=== PATIENT | male | born 1985 | race Caucasian/White ===

== ENCOUNTER 2019-01-31 15:39 | Outpatient (REF) | payer MEDICAID, SELFPAY ==
[2019-01-31 21:31] LABS: Anion Gap 5.9 mmol/L (3-11); BUN 11 mg/dL (7-18); CO2 33.1 mmol/L (21.0-32.0); CREATININE 0.88 mg/dL (0.70-1.30); Calcium 9.2 mg/dL (8.5-10.1); Calculated LDL 112; Chloride 103 mmol/L (98-107); Cholesterol 167 mg/dL (50-200); Glucose 88 mg/dL (70-100); HDL Cholesterol 42 mg/dL (40-60); Potassium 4.9 mmol/L (3.5-5.1); Sodium 142 mmol/L (136-145); Triglyceride 66 mg/dL (30-150)
[2019-02-02 11:11] LABS: HIV-1/2 Ag & Ab Screen Negative (NEGAT)
[2019-02-02 12:28] LABS: Syphilis Serology (RPR) Negative (Negative)
[2019-02-02 14:19] LABS: Chlamydia Result Negative; GC Result Negative; Specimen Description URINE
== END 2019-01-31 15:59 ==
LOC: NCHCN 15:39
PROVIDERS: Visit Provider Specialist/Technologist Athletic Trainer
DX: Z11.3 Encounter for screening for infections with a predominantly sexual mode of transmission (principal); Z11.4 Encounter for screening for human immunodeficiency virus [HIV]; Z13.220 Encounter for screening for lipoid disorders
CPT/HCPCS: 80048; 80061; 83721; 87389; 87491; 87591; 86592

== ENCOUNTER 2019-11-03 21:33 | Emergency (ER) | payer MEDICAID, SELFPAY ==
[2019-11-03 21:38] VITALS: BP 130/75; PULSE 87; RESP 16; TEMP 36.6; O2SAT 96
--- NOTE | 2019-11-03 22:08 | DI.RAD_ITS ---
EXAM: XR HAND LT COMPLETE CLINICAL HISTORY: injury last week. TECHNIQUE: 2D digital imaging was performed. COMPARISON: No exams were available for comparison FINDINGS: BONES: No acute fracture is present. No bony destructive lesion is seen. JOINTS: No dislocation present. SOFT TISSUE: Normal. Tiny 1 mm calcific density adjacent to the tip of the distal phalanx of the left ring finger. This likely reflects on the old injury or degenerative change. IMPRESSION: No acute fracture or dislocation of the left hand. DATA REPOSITORY: RADIATION DOSE DELIVERED:
--- NOTE | 2019-11-03 22:41 | DI.VRAD_ITS ---
PROCEDURE INFORMATION: Exam: XR Left Hand Exam date and time: 11/03/2019 10:27 PM Age: 34 years old Clinical indication: Other: Injury last week TECHNIQUE: Imaging protocol: XR Left hand. Views: 3 or more views. COMPARISON: No relevant prior studies available. FINDINGS: Bones/joints: No fractures. Distal radioulnar alignment is normal. No blastic or lytic lesions. No periostitis or osteolysis. No articular erosive changes. 1 mm rounded calcific focus at the tip of the 4th finger likely representing an incidental chronic degenerative or posttraumatic/postinflammatory calcification. Soft tissues: No radiopaque foreign bodies. Other findings: Carpal relationships are normal. IMPRESSION: No acute findings. Dictated and Authenticated by: Isaac Arias MD. Ordering:GABI Mcdaniels MD
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
== END 2019-11-03 23:25 | disposition home or self-care (01) ==
LOC: ER 23:34
PROVIDERS: Emergency Provider Physician Assistant
DX: M79.642 Pain in left hand (principal); X50.9XXA Other and unspecified overexertion or strenuous movements or postures, initial encounter; R07.9 Chest pain, unspecified; R10.9 Unspecified abdominal pain
CPT/HCPCS: 93005; 99284; 73130; 93010

== ENCOUNTER 2020-10-04 15:40 | Outpatient (REF) | payer MEDICAID, SELFPAY ==
[2020-10-08 11:52] LABS: HSV Type 1 Ab, IgG Positive (Negative); HSV Type 2 Ab, IgG Negative (Negative)
== END 2020-10-04 15:41 | disposition home or self-care (01) ==
LOC: NCHCN 15:40
PROVIDERS: Visit Provider Nurse Practitioner Family
DX: R21 Rash and other nonspecific skin eruption (principal)
CPT/HCPCS: 86695; 86696

== ENCOUNTER 2021-04-30 14:45 | Emergency (ER) | payer SELFPAY | END 2021-04-30 15:55 | DX: Z53.21 Procedure and treatment not carried out due to patient leaving prior to being seen by health care provider (principal) ==

== ENCOUNTER 2021-04-30 15:11 | Emergency (ER) | payer MEDICAID, SELFPAY ==
--- NOTE | 2021-04-30 15:15 | DI.RAD_ITS ---
Exam(s) XR HAND LT LIMITED EXAM: XR HAND LT LIMITED CLINICAL HISTORY: Left knuckle laceration, R/O Fx FB. TECHNIQUE: 2D digital imaging was performed. COMPARISON: CR,XR XR HAND LT COMPLETE from 11/03/2019 FINDINGS: BONES: No acute fracture is present. No bony destructive lesion is seen. JOINTS: No dislocation present. SOFT TISSUE: Gauze overlies the 2nd and 3rd metacarpophalangeal regions. No foreign body is seen. IMPRESSION: Unremarkable radiographs of the left hand. DATA REPOSITORY: RADIATION DOSE DELIVERED:
[2021-04-30 15:17] VITALS: BP 112/78; PULSE 114; RESP 18; TEMP 37.2; O2SAT 97
--- NOTE | 2021-04-30 15:19 | ED.GENADUL_ITS ---
Discharge Plan Disposition Patient Disposition: HOME Condition: Stable Discharge Details Clinical Impression: Laceration of hand Primary Care Provider: Helene Wilson ED Provider: Arslan Rios Home Meds and New Rx's Prescriptions: New ibuprofen 800 mg tablet 800 mg PO TID PRNQty: 14 RF: 0 No Action No Known Home Meds RF: 0 Discharge Instructions Instructions: Care For Your Stitches (ED), Laceration (ED) Additional Instructions: Rest, elevate, cool compresses as tolerated. Change antibiotic dressing daily and wear splint to avoid excessive range of motion so that you do not care open your sutures. Ibuprofen as directed. Sutures removed in approximately 10-14 days. Please watch for new or worsening symptoms and return to the ER for any concerns. Discharge Data Discharge Date/Time-TO BE ENTERED AT DEPARTURE: 04/30/21 16:40 Medical Decision Making <Martha Dominguez - Last Filed: 05/01/21 10:23> 35-year-old male presents the ER chief complaint of left knuckle laceration. Patient has a roughly 2 cm laceration noted to the dorsal aspect of his MCP joint at the index finger. Patient has FROM to digit. This occurred approximately 4.5 hours ago. Patient was trimming some [place] trees with a large sharp machete type knife and accidentally cut his left hand. 1544: Laceration anesthetized with 1% lidocaine without patient tolerated well. Care is to be handed off to oncoming provider for statement PA pending x-ray and laceration repair. Discussed patient case with him he verbalized understanding. <PAULETTE Colmenares - Last Filed: 04/30/21 16:36> I assumed care of this 35-year-old male from my colleague ÓSCAR Dominguez, please see her initial HPI and examination. In short, patient sustained a laceration, pending x-ray and repair. I evaluated the patient personally. 2.5 cm laceration over the left second MCP joint. Bleeding controlled. 5 out of 5 strength. neuro, vascular, tendon intact. X-ray unremarkable Laceration repaired without difficulty. Laceration and had a antibiotic dressing applied and AlumaFoam finger splint. No additional questions or concerns. Standard discharge and return precautions provided This documentation was generated using MapHazardlyation system, please disregard any oddities of phrase or misspellings. Medical Records Medical records reviewed: Yes I reviewed the patient's medical records. Imaging Data Radiologic Study: Attestation: I personally reviewed and interpreted this imaging study as follows: Imaging: X-Ray Radiologist's impression: Exam(s) XR HAND LT LIMITED EXAM: XR HAND LT LIMITED CLINICAL HISTORY: Left knuckle laceration, R/O Fx FB. TECHNIQUE: 2D digital imaging was performed. COMPARISON: CR,XR XR HAND LT COMPLETE from 11/03/2019 FINDINGS: BONES: No acute fracture is present. No bony destructive lesion is seen. JOINTS: No dislocation present. SOFT TISSUE: Gauze overlies the 2nd and 3rd metacarpophalangeal regions. No foreign body is seen. IMPRESSION: Unremarkable radiographs of the left hand. HPI <Martha Dominguez - Last Filed: 05/01/21 10:23> General Mode of arrival: ambulatory . Date/Time Provider Initiated Documentation: 04/30/21 15:13 . Limitations to Documentation: no limitations . Information obtained by: patient and RN notes reviewed . HPI Narrative: 35-year-old male presents the ER chief complaint of left knuckle laceration. Patient has a roughly 2 cm laceration noted to the dorsal aspect of his MCP joint at the index finger. Patient has FROM to digit. This occurred approximately 4.5 hours ago. Patient was trimming some [place] trees with a large sharp machete type knife and accidentally cut his left hand. Related Data Home Medications Medication Instructions Recorded Confirmed Unknown [No Known Home Meds] 05/09/16 05/09/16 ibuprofen 800 mg PO TID PRN #14 tab 04/30/21 Previous Rx's Medication Instructions Recorded ibuprofen 800 mg PO TID PRN #14 tab 04/30/21 Allergies Allergy/AdvReac Type Severity Reaction Status Date / Time No Known Allergies Allergy Unverified 05/09/16 07:58 General AMMON: 3 Review of Systems <Martha Dominguez - Last Filed: 05/01/21 10:23> All systems reviewed & are unremarkable except as noted in HPI and below Integumentary/Breasts Skin/Breast: Reports wounds (2 cm laceration to dorsum left index finger) PFSH <Martha Dominguez - Last Filed: 05/01/21 10:23> Social History Smoking/Tobacco Use Status: Current every day Smoking risk assessment performed?: Yes Alcohol Intake: current Alcohol Intake frequency: 0-2 drinks per day Drug use: Occasionally Substance use type: marijuana Do you feel safe at home: Yes Do you feel safe in your relationship?: Yes Exam <Martha Dominguez - Last Filed: 05/01/21 10:23> Extrem Left upper extremity: hand Details: laceration (Over MCP joint) 2nd digit dorsal aspect central Details: linear and with motor nerve function intact <PAULETTE Colmenares - Last Filed: 04/30/21 16:36> Laceration Laceration 1: Site: hand Side (If applicable): left Size (cm): 2.5 Description: linear and clean Depth: simple, single layer Local Anesthetic: Lidocaine 1%, Bupivicaine 0.5% and other anesthetic ([id number] mixture) Amount of anesthesia used (mL): 5 Pre-repair: wound explored, irrigated extensively and deep structures intact Skin layer closed with: nylon Size (cm): 4-0 Number of sutures: 5 Technique: simple, interrupted Sign Out <Martha Dominguez - Last Filed: 05/01/21 10:23> Sign Out Data: Sign Out Comment: Pending XRay results and suture repair Last updated by Martha Dominguez at 04/30/21 15:58
== END 2021-04-30 16:40 | disposition home or self-care (01) ==
PROVIDERS: Emergency Provider Physician Assistant
DX: S61.211A Laceration without foreign body of left index finger without damage to nail, initial encounter (principal); W26.0XXA Contact with knife, initial encounter
CPT/HCPCS: 12001; 90471; 99284; 73120; 99283

== ENCOUNTER 2022-08-19 11:26 | Emergency (ER) | payer MEDICAID, SELFPAY ==
[2022-08-19 11:32] VITALS: BP 130/75; PULSE 117; RESP 18; TEMP 36.9; O2SAT 97
--- NOTE | 2022-08-19 11:45 | DI.RAD_ITS ---
Exam(s) XR LUMBAR SPINE COMPLETE EXAM: XR LUMBAR SPINE COMPLETE CLINICAL HISTORY: Lower back pain. TECHNIQUE: 2D digital imaging was performed. COMPARISON: No exams were available for comparison FINDINGS: Five views: There is slight indentation of superior endplate L4 seen on the lateral view of questionable. All th e disc spaces exhibit normal height. No listhesis. No pars defects. There is no facet arthropathy evident. Visualized sacroiliac joints appear unremarkable. No osseous lesions. IMPRESSION: Mild findings as above. If clinically indicated follow-up MRI can be performed DATA REPOSITORY: RADIATION DOSE DELIVERED:
--- NOTE | 2022-08-19 11:50 | W.ED.GENAD ---
Discharge Plan Disposition Patient Disposition: Home Condition: Stable Discharge Details Clinical Impression: Lumbago Primary Care Provider: Helene Wilson ED Provider: Martha Dominguez Home Meds and New Rx's Prescriptions: New cyclobenzaprine 10 mg tablet 10 mg PO TID PRN (Reason: muscle spasm) Qty: 7 0RF Rx Instructions: Take 1 tablet up to 3 times daily as needed for muscle spasm. No Action ibuprofen 800 mg tablet 800 mg PO TID PRNQty: 14 0RF Discharge Instructions Instructions: Low Back Strain (ED) Additional Instructions: Alternate ice and heat you may use IcyHot or similar [id number]-hqorytc. Try massage. Discuss with your PCP if continued pain after 1 to 2 weeks for possible further imaging if needed. Follow up with primary care provider in 7-10 days. Return to ED/ urgent care sooner if any worsening numbness tingling, loss of bowel or bladder control, radiation of pain or concerns. Increase oral fluids. Please take Tylenol or Ibuprofen with food every 4-6 hours as needed for pain and swelling. Take the muscle relaxer as prescribed. Stand Alone Forms: Work Release Referrals: Helene Wilson MD [Primary Care Provider] - 1 week Discharge Data Discharge Date/Time-TO BE ENTERED AT DEPARTURE: 08/19/22 13:45 Medical Decision Making 37-year-old male presents to the ER accompanied by his family with chief complaint of right lumbar back pain which worsened approximately 3 to 4 days ago. He reports intermittent spasms, denies any radiation into his legs no problems urinating no loss of bowel or bladder control denies any saddle anesthesia. 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 L-spine x-ray ordered, IM Toradol and Norflex. X-ray result as noted below, patient has no radiculopathy, no saddle anesthesia no indications for MRI at this time. I will discuss follow-up with PCP and further eval. This text was generated using [email or web address] system, please disregard any oddities of phrase or misspellings. Imaging Data Radiologic Study: Imaging: X-Ray Radiologist's impression: EXAM: XR LUMBAR SPINE COMPLETE CLINICAL HISTORY: Lower back pain. TECHNIQUE: 2D digital imaging was performed. COMPARISON: No exams were available for comparison FINDINGS: Five views: There is slight indentation of superior endplate L4 seen on the lateral view of questionable. All the disc spaces exhibit normal height. No listhesis. No pars defects. There is no facet arthropathy evident. Visualized sacroiliac joints appear unremarkable. No osseous lesions. IMPRESSION: Mild findings as above. If clinically indicated follow-up MRI can be performed HPI General Mode of arrival: ambulatory. Date/Time Provider Initiated Documentation: 08/19/22 11:34. Limitations to Documentation: no limitations. Information obtained by: patient, family, RN notes reviewed and old records reviewed. HPI Narrative: 37-year-old male presents to the ER accompanied by his family with chief complaint of right lumbar back pain which worsened approximately 3 to 4 days ago. He reports intermittent spasms, denies any radiation into his legs no problems urinating no loss of bowel or bladder control denies any saddle anesthesia. 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 He denies any recent falls or significant trauma. He has been taking ibuprofen with little to no relief at home. He did not take any ibuprofen this morning. Related Data Home Medications Medication Instructions Recorded Confirmed ibuprofen 800 mg tablet 800 mg PO TID PRN #14 tabs 04/30/21 08/19/22 cyclobenzaprine 10 mg tablet 10 mg PO TID PRN muscle spasm #7 08/19/22 tabs Previous Rx's Medication Instructions Recorded ibuprofen 800 mg tablet 800 mg PO TID PRN #14 tabs 04/30/21 cyclobenzaprine 10 mg tablet 10 mg PO TID PRN muscle spasm #7 08/19/22 tabs Allergies Allergy/AdvReac Type Severity Reaction Status Date / Time No Known Allergies Allergy Unverified 08/19/22 11:49 General Stated Complaint: Nk/Back Pain AMMON: 4 Review of Systems All systems reviewed & are unremarkable except as noted in HPI and below Constitutional Constitutional: Denies weakness ENT Ears, Nose, Mouth, and Throat: Denies dizziness Musculoskeletal Musculoskeletal: Reports as per HPI, Denies abnormal gait, Reports back pain, Denies deformity, Denies muscle weakness, Denies numbness, Reports stiffness and Denies tingling Neurologic Neurologic: Denies abnormal gait, Denies dizziness, Denies localized weakness, Denies numbness, Denies tingling and Denies weakness PFSH All Active Problems (Updated 08/19/22 @ 13:35 by Martha Dominguez NP) Laceration of hand (Acute) Lumbago (Acute) Social History Smoking/Tobacco Use Status: Current every day Smoking risk assessment performed?: Yes Alcohol Intake: current Alcohol Intake frequency: 0-2 drinks per day Drug use: Occasionally Substance use type: marijuana Do you feel safe at home: Yes Do you feel safe in your relationship?: Yes Exam Narrative Exam Narrative: Constitutional: Alert and oriented x3. Appears stated age. Normal body habitus. Head: Normocephalic, no trauma. Eyes: Pupils PERRL, Red reflex noted, EOM's intact. Eyelids symmetrical without lesions, discharge, or swelling. Chest: RRR, Normal S1, S2, distal pulses intact. Resp: Lungs clear to auscultation bilaterally, no wheezes, rales, or rhonchi. Abdomen: Soft, non-distended, Normoactive bowel sounds all 4 quads. Musculoskeletal: Normal gait, 5/5 strength to all four extremities. Skin: No suspicious rashes or lesions. Capillary refill less than 2 sec. Neurologic: Cranial nerves II-XII intact. Alert and oriented x 3. Motor: No deficits noted. Sensory: Intact bilaterally all 4 extremities. Reflexes: DTR's intact bilaterally.. Hematologic/Lymphatic: No ecchymosis, no lymphadenopathy. Course Vital Signs Vital signs: Vital Signs Temperature 36.9 C 08/19/22 11:32 Pulse 117 H 08/19/22 11:32 Respiratory Rate 18 08/19/22 11:32 Blood Pressure 130/75 08/19/22 11:32 Pulse Oximetry 97 08/19/22 11:32 Temperature 36.9 C 08/19/22 11:32 Temperature Source Temporal Artery Scan 08/19/22 11:32 Pulse 117 H 08/19/22 11:32 Respiratory Rate 18 08/19/22 11:32 Respiratory Effort 08/19/22 11:48 Blood Pressure 130/75 08/19/22 11:32 Blood Pressure Position Sitting 08/19/22 11:32 Pulse Oximetry 97 08/19/22 11:32 Oxygen Delivery Method Room Air 08/19/22 11:32 Oxygen Flow Rate 0 08/19/22 11:32 Pain Level 9 08/19/22 11:32 PAWSS Have you Been Recently Intoxicated or Drunk Within the Last 30 days?: Yes Have you Ever Experienced Previous Episodes of Alcohol Withdrawal?: No Have you ever Experienced Withdrawal Seizures?: No Have you ever Experienced Delirium Tremens(DT)s?: No Have you ever undergone Alcohol Rehabilitation Treatment (i.e, inpt ot outpatient treatment programs)?: No Have you ever Experienced Blackouts?: No Have you ever Combined Alcohol with other Downers within the last 90 days?: No Have you ever Combined Alcohol with any other Substance of Abuse during the last 90 days?: No Positive Blood Alcohol level on Presentation? [PCS.BAL]: No Evidence of Increased Autonomic Activity (i.e. HR>120, tremor, sweating, agitation, nausea)?: No Result: 1
[2022-08-19] MEDS: Ketorolac 30 MG/ML VIAL IM (12:00)
[2022-08-19] MEDS: Orphenadrine 60 MG/2 ML VIAL IM (12:00)
[2022-08-19] MEDS: Cyclobenzaprine 10 MG TAB, 3 TABS/BTL PO (13:43)
== END 2022-08-19 13:45 | disposition home or self-care (01) ==
PROVIDERS: Emergency Provider Registered Nurse Emergency
DX: M54.50 Low back pain, unspecified (principal)
CPT/HCPCS: 96372; 99284; J2360; 72110; 99283; J1885

== ENCOUNTER 2024-03-06 15:31 | Emergency (ER) | payer MEDICAID, SELFPAY ==
[2024-03-06 15:33] VITALS: BP 121/89; PULSE 119; RESP 16; TEMP 36.8; O2SAT 98
[2024-03-06] MEDS: Lidocaine/Epinephri/Tetracaine Topical Gel 3 ML (15:44)
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
--- NOTE | 2024-03-06 16:44 | NUR.NOTE ---
Referral faxed to [facility] Primary Care Provider Lizette Greco for suture Removal in 10-14 days.
[2024-03-06 16:51] VITALS: PULSE 92; O2SAT 98
[2024-03-06] MEDS: Bacitracin 1 PACKET TP (16:57)
--- OUTSIDE RECORDS SUMMARY | 2024-03-06 16:59 | XMS_ITS | Encounter Summary ---
Author Organization [facility] Address [facility] [place] [address] Care Team Providers Care It Systems Engineer Name Role Phone Lizette Greco LINUS Primary Care Provider [phone] Reason for Visit * Reason Comments Follow-up NXR ll DOS 08/04/19 [place] RIGHT ANKLE Encounter Details Date Type Department Care Team (Late st Contact Info) Description 08/26/2019 1:00 PM EST Office Visit Orthopaedics at [facility] [place] [address] Sara Nunez MD [facility] [place] [address] S/P hardware removal Social History Tobacco Use Types Packs/Day Years Used Date Smoking Tobacco: Every Day Cigarettes Smokeless Tobacco: Never Alcohol Use Standard Drinks/Week Comments Yes 0 (1 standard drink = 0.6 oz pur e alcohol) occasional Sex and Gender Information Value Date Recorded Sex Assigned at Not on file Gender Identity Not on file Sexual Orientation Not on file documented as of this encounter Last Filed Vital Signs Vital Sign Reading Time Taken Comments Blood Pressure - - Pulse - - Temperature - - Respiratory Rate - - Oxygen Saturation - - Inhaled Oxygen Concentration - - Weight 90.7 kg (200 lb) 08/26/2019 2:14 PM EST Height 182.9 cm (6') 08/26/2019 2:14 PM EST Body Mass Index 27.12 08/26/2019 2:14 PM EST documented in this encounter Progress Notes * Sara Nunez MD - 08/26/2019 1:00 PM EST Chief complaint: Status post removal of hardware right ankle; date of surgery 08/04/2019 History of present illness: Vinay presents today for wound check. He has been on Keflex for a week. He has not removed his dressing. He has been weightbearing as tolerated Physical exam: Patient is in no acute distress. Alert and oriented. Mood and affect are appropriate Focused examination right lower extremity there is decreased when compared to previous exam So-incisional erythema has significantly decreased. Minimal so-incisional tenderness. No evidence of drainage dehiscence He is neurovascular intact with motor and sensation intact in all distributions Impression: - 3 weeks status post removal hardware right ankle Plan: - Sterile dressings were placed in clinic today. Patient may remove dressing in 24 hours and shower. He is to avoid any shoewear that will rub on his incision - He should complete the full 7-day course of Keflex - We will see him back in clinic in 3 weeks for wound check. If he is doing well we will likely transition to as needed visits at that point in time documented in this encounter Plan of Treatment Not on file documented as of this encounter Visit Diagnoses Diagnosis S/P hardware removal documented in this encounter Care Teams It Systems Engineer Relationship Specialty Start Date End Date Lizette Greco APRN [address] [place] [address] PCP - General Family Medicine 03/18/19 documented as of this encounter
--- OUTSIDE RECORDS SUMMARY | 2024-03-06 16:59 | XMS_ITS | Encounter Summary ---
Author Organization [facility] Address [facility] [place] [address] Care Team Providers Care Second Worker Name Role Phone Lizette Greco LINUS Primary Care Provider [phone] Reason for Visit * Reason Comments Follow-up NXR-S/P HARDWARE REM [place] RIGHT ANKLE Encounter Details Date Type Department Care Team (Late st Contact Info) Description 09/30/2019 4:00 PM EST Office Visit Orthopaedics at [facility] [place] [address] Sara Nunez MD [facility] [place] [address] S/P hardware removal Social History Tobacco Use [...] Sign Reading Time Taken Comments Blood Pressure 123/78 09/30/2019 3:25 PM EST Pulse 89 09/30/2019 3:25 PM EST Temperature - - Respiratory Rate - - Oxygen Saturation - - Inhaled Oxygen Concentration - - Weight 90.7 kg (200 lb) 09/30/2019 3:25 PM EST Height 182.9 cm (6') 09/30/2019 3:25 PM EST Body Mass Index 27.12 09/30/2019 3:25 PM EST documented in this encounter Progress Notes * Sara Nunez MD - 09/30/2019 4:00 PM EST Chief complaint: Status post removal of hardware right ankle; date of surgery 08/04/2019 History of present illness: Vinay presents today for wound check. [facility] He notes sensitivity and redness over the distal fibula and is concerned. Physical exam: Patient is in no acute distress. Alert and oriented. Mood and affect are appropriate Focused examination right lower extremity there is some logan-incisional erythema at the mid pole ofthe wound. There is a small suture abscess, necrotic fluid was expressed. No palpable fluctuance. No evidence of wound dehiscence or drainage On motor exam, there is 5/5 strength dorsiflexion, plantarflexion, inversion, eversion, EHL, FHL Sensation is intact to light touch in the sural, saphenous, deep peroneal, superficial peroneal, and tibial nerve distributions Toes are warm and well perfused with 2+ palpable DP and PT pulses Impression: - Status post removal of K wire from the right ankle; date of surgery 08/04/2019 -Suture abscess Plan: - Sterile dressing was placed over the wound in clinic today. Patient may remove in 48 hours and thereafter cover with a Band-Aid -We have placed him on a two-week course of Bactrim -We will see him back in clinic in 2 weeks for wound check documented in this encounter Plan of Treatment Not on file documented as of this encounter Visit Diagnoses Diagnosis S/P hardware removal documented in this encounter Care Teams Second Worker Relationship Specialty Start Date End Date Lizette Greco APRN [address] [place] [address] PCP - General Family Medicine 03/18/19 documented as of this encounter
--- OUTSIDE RECORDS SUMMARY | 2024-03-06 16:59 | XMS_ITS | Encounter Summary ---
Author Organization [facility] [place] [address] Care Team Providers Care Electronic Scale Subassembler Name Role Phone Angus Lizette LINUS Primary Care Provider [phone] Reason for Visit * Auth/Cert Specialty Diagnoses / Procedures Referred By Contac t Referred To Contact Diagnoses Symptomatic hardware right ankle Procedures PRO REMOVAL DEEP IMPLANT REMOVAL OF IMPLANT, DEEP (WRVU 5.96) Referral ID Status Reason Start Date Expiration Date Visits Re quested Visits Authorized [id number] 1 1 Encounter Details Date Type Department Care Team (Late st Contact Info) Description 08/04/2019 7:30 AM [facility] Anesthesia Event [facility] [place] [address] Rebecca Decker MD [facility] [place] [address] Anesthesia Record Procedure Summary Procedure Name Responsible Anesthesiologist Anesthesia Start Time Anesthesia Stop Time REMOVAL OF IMPLANT, DEEP (WRVU 5.96) (Right: Ankle) Rebecca Decker MD 08/04/19 0730 08/04/19 0842 Events Date Time Event Comment 08/04/2019 0730 Start 0731 0732 AN Verify 0732 An Start Data 0739 Anesthesia Ready 0748 An Induction 0750 An Intubation 0755 Procedure Start 0834 an stop data 0840 Recovery or ICU Handoff Laverne ent care was transferred to the destination unit staff after review of the patient's medical history, current anesthetic/surgical status and plan, according to the Provider Handoff Checklist. 0842 Stop Meds Name Total Midazolam 2 mg fentaNYL 50 mcg IV Lidocaine 60 mg Propofol 300 mg Propofol INF 607.69 mg ceFAZolin (ANCEF) 2g in dextrose 5% 100 mL 2 g Dexmedetomidine 12 mcg Ondansetron 8 mg Dexamethasone 8 mg lactated ringers infusion 600 mL * Agents Name O2 Air N2O Sevoflurane (et) * Blood No blood administrations on file. Lines, Drains, and Airways Type Details Placement Removal (RETIRED) Peripheral IV Line - Single Lumen 08/04/19; 06; metacarpal vein (top of hand), left; [id number] catheter system; 20 gauge, 1/2 in length; 08/04/19; 0948 08/04/19 0638 by Shanta Bass RN 08/04/19 0948 by Adriana Hope RN Supraglottic Mask Ventilation: No t Attempted (0); LMA Type: iGel; LMA Size: 4; Inserted by: Estrellita SHANNON; Removal Date: 08/04/19; Removal Time: 0808/04/19 0750 by Tawanna Beth 08/04/19 0855 by Adriana Hope RN Incision 08/04/19; 0755; ankl e; 04/21/22 (LDA cleanup utility RA#[id number]); 1715 (LDA cleanup utility RA#[id number]) 08/04/19 0755 by Sarah Iraheta RN 04/21/22 1715 by Elissa Heard documented in this encounter Social History Tobacco Use Types Packs/Day Years Used Date Smoking Tobacco: Every Day Cigarettes Smokeless Tobacco: Never Alcohol Use Standard Drinks/Week Comments Yes 0 (1 standard drink = 0.6 oz pur e alcohol) occasional Sex and Gender Information Value Date Recorded Sex Assigned at Not on file Gender Identity Not on file Sexual Orientation Not on file documented as of this encounter OR Notes * Anesthesia Postprocedure Evaluation - Rebecca Decker MD - 08/04/2019 10:01 AM EST Department of Anesthesiology Post-procedure Note Patient: Vinay Dowell Procedure Summary Date: 08/04/19 Room / Location: [facility] OR [address] [place] [address] OSC Anesthesia Start: 729 Anesthesia Stop: 841 Procedure: REMOVAL OF IMPLANT, DEEP (WRVU 5.96) (Right Ankle) Diagnosis: (Symptomatic hardware right ankle) Surgeon: Sara Nunez MD Responsible Provider: Rebecca Decker MD Anesthesia Type: general ASA Status: 2 All Anesthesia Providers: Anesthesiologist: Rebecca Decker MD MASK FORMER: Fredrick Dawson CRNA Student Nurse [employer] Seating Press Operator: Tawanna Beth Vitals Value Taken Time BP 117/78 08/04/2019 8:45 AM Temp Pulse 64 08/04/2019 9:45 AM Resp 20 08/04/2019 9:45 AM SpO2 98 % 08/04/2019 9:45 AM Pain Level 1 08/04/2019 9:45 AM Patient Location: PACU/[facility] Level of Consciousness: Awake and Alert Pain Management: Satisfactory Analgesia PONV: None Cardiovascular Status: At Baseline Respiratory Status: Room Air and Stable Respiratory Status Postoperative Fluid Status: Intravascular EUvolemia Possible Anesthetic Complications: NONE apparent at time of evaluation Final Primary Anesthesia Type: General The Primary Anesthetic Type Changed from the Original (PreOp) Anesthesia Plan: Inadequate Sedation Comments: Mr. Dowell tolerated the procedure well and without complication. VSS on RA. Pt denies any concerns. Pt transitioned from MAC to GA/LMA with the use of an ankle tourniquet. * Anesthesia Preprocedure Evaluation - Rebecca Decker MD - 08/03/2019 12:45 PM EST Pre-Anesthesia Evaluation for: Vinay Dowell a 34 y.o. male. Procedure(s): REMOVAL OF IMPLANT, DEEP (WRVU 5.96) Patient Active Problem List Diagnosis ??? Attention and concentration deficit ??? TBI (traumatic brain injury) ??? Perianal abscess ??? [id number] ??? Ankle pain No past medical history on file. Past Surgical History: Procedure Laterality Date ??? PRO COLONOSCOPY, REMV LESN, SNARE N/A 03/02/2017 COLONOSCOPY, POLYPECTOMY, REMOVAL LESION BY SNARE (WRVU 4.67) performed by Luis E Shultz MD at [facility] ENDOSCOPY Social History Tobacco Use ??? Smoking status: Current Every Day Smoker Packs/day: 0.50 Types: Cigarettes ??? Smokeless tobacco: Never Used Substance Use Topics ??? Alcohol use: Yes Comment: occasional Social History Substance and Sexual Activity Drug Use Yes ??? Types: Marijuana Comment: 3-4 times a month No Known Allergies Medications: MAR and/or home medications have been reviewed. Physical Exam: There were no vitals filed for this visit. There is no height or weight on file to calculate BMI. Airway Assessment: Mallampati: I TM distance: >3 FB Neck ROM: full Cardiovascular Assessment: Pulmonary Assessment: Dental Assessment: - normal exam Misc Assessment: IV access: Peripheral line Anesthesia Plan: ASA 2 general, with a(n) intravenous induction Mr. Dowell is a 34 year old male with PMHx of painful ankle hardware on the right, scheduled for Kwire removal. Pt has NKDA. Plan for preoperative Tylenol, gabapentin, MAC. Risks were discussed at length, and all questions and concerns were addressed. Consent was obtained, and the appropriate paperwork was placed in the patient's chart. Region - Other Informed Consent: Anesthetic plan and risks discussed with patient and mother. Plan discussed with MASK FORMER. PAT Clinic Note documented in this encounter Plan of Treatment Not on file documented as of this encounter Visit Diagnoses Not on filedocumented in this encounter Administered Medications Inactive Administered Medications - up to 3 most recent administrations Medication Order MAR Action Action Date Dose Rate Site ceFAZolin (ANCEF) 2g in dextrose 5% 100 mL 2 g, Intravenous, ONCE, 1 dose, On Aimee 08/04/19 at 0800, Administer over 30 Minutes, Indication for (Active or Suspected): Prophylaxis Given 08/04/2019 7:39 AM EST 2 g dexamethasone (DECADRON) injection PRN, Starting on Aimee 08/04/19 at 0741, Until Aimee 08/04/19 at 0906, Anesthesia Intra-op, Routine Given 08/04/2019 7:41 AM EST 8 mg dexmedetomidine (PRECEDEX) injection PRN, Starting on Aimee 08/04/19 at 0738, Until Aimee 08/04/19 at 0906, Anesthesia Intra-op, Routine Given 08/04/2019 7:42 AM EST 4 mcg Given 08/04/2019 7:38 AM EST 8 mcg fentaNYL 50 mcg/mL multi-dose injection PRN, Starting on Aimee 08/04/19 at 0743, Until Aimee 08/04/19 at 0906, Anesthesia Intra-op, Routine Given 08/04/2019 7:46 AM EST 25 mcg Given 08/04/2019 7:43 AM EST 25 mcg lactated ringers infusion 1,000 mL, at 100 mL/hr, Intravenous, CONTINUOUS, Starting on Aimee 08/04/19 at 0630, Until Aimee 08/04/19 at 0949, Day of Surgery (Day of Procedure) New Bag 08/04/2019 7:30 AM EST lidocaine (PF) (XYLOCAINE) 100 mg/5 mL (2 %) injection PRN, Starting on Aimee 08/04/19 at 0737, Until Aimee 08/04/19 at 0906, Anesthesia Intra-op, Routine Given 08/04/2019 7:37 AM EST 60 mg midazolam (PF) (VERSED) multi-dose injection PRN, Starting on Aimee 08/04/19 at 0730, Until Aimee 08/04/19 at 0906, Anesthesia Intra-op, Routine Given 08/04/2019 7:30 AM EST 2 mg ondansetron (ZOFRAN) injection PRN, Starting on Aimee 08/04/19 at 0827, Until Aimee 08/04/19 at 0906, Anesthesia Intra-op, Routine Given 08/04/2019 8:27 AM EST 8 mg propofol (DIPRIVAN) 10 mg/mL bolus injection (Anesthesia) PRN, Starting on Aimee 08/04/19 at 0737, Until Aimee 08/04/19 at 0906, Anesthesia Intra-op Given 08/04/2019 7:51 AM EST 100 mg Given 08/04/2019 7:48 AM EST 100 mg Given 08/04/2019 7:40 AM EST 50 mg propofol (DIPRIVAN) infusion CONTINUOUS PRN, Starting on Aimee 08/04/19 at 0739, Until Aimee 08/04/19 at 0906, Anesthesia Intra-op, Routine Rate/Dose Change 08/04/2019 8:15 AM EST 50 mcg/kg/min 27.2 mL/hr Rate/Dose Change 08/04/2019 8:09 AM EST 100 mcg/kg/min 54. 4 mL/hr Rate/Dose Change 08/04/2019 8:03 AM EST 150 mcg/kg/min 81. 6 mL/hr documented in this encounter Care Teams Electronic Scale Subassembler Relationship Specialty Start Date End Date Lizette Greco APRN [address] [place] [address] PCP - General Family Medicine 03/18/19 documented as of this encounter
--- OUTSIDE RECORDS SUMMARY | 2024-03-06 16:59 | XMS_ITS | Encounter Summary ---
Author Organization [facility] Address [facility] [place] [address] Care Team Providers Care Rotary Dump Operator Name Role Phone Lizette Greco LINUS Primary Care Provider [phone] Reason for Visit * Reason Comments Follow Up Surgery dos 08/04/19 [facility] right ankle Encounter Details Date Type Department Care Team (Late st Contact Info) Description 08/19/2019 11:30 AM EST Office Visit [facility] at [facility] [place] [address] Sara Nunez MD [facility] [place] [address] Complication of internal orthopedic device, initial encounter Social History Tobacco Use Types Packs/Day [...] Sign Reading Time Taken Comments Blood Pressure 134/67 08/19/2019 11:52 AM EST Pulse 100 08/19/2019 11:52 AM EST Temperature - - Respiratory Rate - - Oxygen Saturation - - Inhaled Oxygen Concentration - - Weight 90.7 kg (200 lb) 08/19/2019 11:52 AM EST Height 182.9 cm (6') 08/19/2019 11:52 AM EST Body Mass Index 27.12 08/19/2019 11:52 AM EST documented in this encounter Progress Notes * Sara Nunez MD - 08/19/2019 11:30 AM EST Chief complaint: Status post removal of hardware right ankle; date of surgery 08/04/2019 History of present illness: Vinay presents today for initial postoperative evaluation. He is just over 2 weeks out from surgery. In the interim since surgery, he has been doing okay. He took off his own dressing and has now been coating his wound with bacitracin. He is not wearing the postoperative shoe and presents today wearing hiking boots. He notes that his incision next is extremely tender. He continues to smoke daily Physical exam: Patient is in no acute distress. Alert and oriented. Mood and affect are appropriate Focused examination right lower extremity there is significant swelling, which is above normal limits for the stage postop There is logan-incisional erythema There is no active wound drainage He does have significant logan-incisional tenderness He is neurovascular intact with motor and sensation intact in all distributions Impression: - 2 weeks status post removal hardware right ankle Plan: - I discussed at length with the patient that I am very concerned that the appearance of his wound today. I suspect this is likely due to noncompliance with postoperative instructions, specifically regarding removal of his dressing. The patient does state that somebody from either our department orthe [facility] had called him and told him it was okay to remove his dressing. I do not find any record ofthis in our system. - Sutures were removed today in clinic. Silver dressing was placed. He is not to remove his dressing -We will see him back in clinic in 1 to 2 weeks for wound check - We will start him on p.o. Keflex, for 7 days documented in this encounter Plan of Treatment Not on file documented as of this encounter Visit Diagnoses Diagnosis Complication of internal orthopedic device, initial encounter documented in this encounter Care Teams Rotary Dump Operator Relationship Specialty Start Date End Date Lizette Greco APRN [address] [place] [address] PCP - General Family Medicine 03/18/19 documented as of this encounter
--- OUTSIDE RECORDS SUMMARY | 2024-03-06 16:59 | XMS_ITS | Clinical Summary ---
Author Organization [facility] [place] [address] Care Team Providers Care Enterprise Manager Name Role Phone Angus Lizette BARRIGA Primary Care Provider [phone] Allergies No known active allergies Medications Medication Sig Dispensed Refills Start Date End Date Status Ibuprofen 200 mg Capsule Take 200 mg by mouth daily. Active acetaminophen (TYLENOL) 500 mg Tablet Take 2 tablets by mouth every 8 hours. 30 tablet 1 08/04/2019 Active Active Problems Problem Noted Date Diagnosed Date S/p R ankle lateral hardware removal 08/04/19 (G mackenzie) 08/04/2019 Attention and concentration deficit 11/22/2015 TBI (traumatic brain injury) 10/25/2015 Perianal abscess 12/21/2012 [id number] 12/21/2012 Ankle pain 04/11/2011 Family History Medical History Relation Comments Fractures Neg Hx Relation Status Comments Brother Alive Father Alive Maternal Grandfather Maternal Grandmother Mother Alive Paternal Grandfather Paternal Grandmother Sister Alive Social History Tobacco Use Types Packs/Day Years Used Date Smoking Tobacco: Every Day Cigarettes Smokeless Tobacco: Never Alcohol Use Standard Drinks/Week Comments Yes 0 (1 standard drink = 0.6 oz pur e alcohol) occasional Sex and Gender Information Value Date Recorded Sex Assigned at Not on file Gender Identity Not on file Sexual Orientation Not on file Last Filed Vital Signs Vital Sign Reading Time Taken Comments Blood Pressure 141/77 10/19/2019 3:34 PM EST Pulse 85 10/19/2019 3:34 PM EST Temperature 36.3 ??C (97.3 ??F) 08/04/2019 8:36 AM ES T Respiratory Rate 20 08/04/2019 9:45 AM EST Oxygen Saturation 98% 08/04/2019 9:45 AM EST Inhaled Oxygen Concentration - - Weight 90.7 kg (200 lb) 10/19/2019 3:34 PM EST Height 182.9 cm (6') 10/19/2019 3:34 PM EST Body Mass Index 27.12 10/19/2019 3:34 PM EST Plan of Treatment Health Maintenance Due Date Last Done Comments HIV screen 2002 Hepatitis C Screening 2002 Lipid Screening 2002 Hepatitis B vaccine (0-59 yrs) (1) 2003 Tdap adult 2003 Tetanus vaccine 2003 Covid-19 Vaccine (1 - 2022-24 season) 2023 Influenza (Flu) vaccine (1 o f 1 - Influenza standard series) 04/24/2024 Advance Directives * Full Code (Latest Code Status on File) Date Activated Date Inactivated Comments 08/04/2019 7:30 AM 08/04/2019 12:12 PM Question Answer Comments Does patient have capacity to make decision: Yes Care Teams Enterprise Manager Relationship Specialty Start Date End Date Lizette Greco APRN [address] [place] [address] PCP - General Family Medicine 03/18/19
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
--- OUTSIDE RECORDS SUMMARY | 2024-03-06 16:59 | XMS_ITS | Encounter Summary ---
Author Organization [facility] [place] [address] Care Team Providers Care Cardiac Cath Technologist Name Role Phone Lizette Greco EXTERNAL GRINDER TOOL Primary Care Provider [phone] Encounter Details Date Type Department Care Team (Late st Contact Info) Description 08/21/2019 [place] [phone] Salima Petersen MD [facility] [place] [address] Social History Tobacco Use Types Packs/Day Years Used Date Smoking Tobacco: Every Day Cigarettes Smokeless Tobacco: Never Alcohol Use Standard Drinks/Week Comments Yes 0 (1 standard drink = 0.6 oz pur e alcohol) occasional Sex and Gender Information Value Date Recorded Sex Assigned at Not on file Gender Identity Not on file Sexual Orientation Not on file documented as of this encounter Miscellaneous Notes * Telephone Encounter - Salima Petersen MD - 08/21/2019 9:51 AM EST Vinayagata Dowell is a 34 y.o. male s/p [place] right ankle DOS 08/04/[address] Nunez, recently seen in clinic 08/19 with concerns for early signs of infection, sutures removed, mepilex dressing placed, andPO keflex for 7 days given with plan to return to clinic 08/26/18. He calls today - attempted to call back, went to voicemail and unable to leave message due to mailbox full. documented in this encounter Plan of Treatment Not on file documented as of this encounter Visit Diagnoses Not on filedocumented in this encounter Care Teams Cardiac Cath Technologist Relationship Specialty Start Date End Date Lizette Greco APRN [address] [place] [address] PCP - General Family Medicine 03/18/19 documented as of this encounter
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
--- OUTSIDE RECORDS SUMMARY | 2024-03-06 16:59 | XMS_ITS | Encounter Summary ---
Author Organization [facility] Address [facility] [place] [address] Care Team Providers Care Maintenance Worker Name Role Phone Lizette Greco LINUS Primary Care Provider [phone] Reason for Visit * Reason Onset Date Comments Questions 10/17/2019 Encounter Details Date Type Department Care Team (Late st Contact Info) Description 10/17/2019 Telephone Orthopaedics at [facility] [place] [phone] Sara Nunez [place] [facility] [address] Questions Social History Tobacco Use Types Packs/Day Years [...] encounter Miscellaneous Notes * Telephone Encounter - Leslie Diazruddy Colon - 10/17/2019 3:37 PM EST Triage Note Subjective: ABX [place] questions/Assessment: Mr. Dowell is s/p R ankle [place] DOS: 08/04/19- Mayra. He calls today to report that he was not taking/took his prescription of Keflex incorrectly for several days. He reportshe has 17 pills left. He reports that his wound is not painful and there is no discharge. I reviewed his chart and confirmed he should be taking 2 a day for 14 days, he agreed to resume hisabx until completed. He would like to know if he should reschedule his appt for wound check. I reported to him he should keep his appt for now, and I would check with Dr. Nunez to confirm he should keep the appt or reschedule. IF he needs to be rescheduled we will call him back, otherwise he should keep his appt as scheduled. Plan: Routed to Dr. Nunez for instruction. documented in this encounter Plan of Treatment Not on file documented as of this encounter Visit Diagnoses Not on filedocumented in this encounter Care Teams Maintenance Worker Relationship Specialty Start Date End Date Lizette Greco APRN [address] [place] [address] PCP - General Family Medicine 03/18/19 documented as of this encounter
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
--- OUTSIDE RECORDS SUMMARY | 2024-03-06 16:59 | XMS_ITS | Encounter Summary ---
Author Organization [facility] Address [facility] [place] [address] Care Team Providers Care Soft Top Installer Name Role Phone Lizette Greco LINUS Primary Care Provider [phone] Reason for Visit * Reason Comments Follow-up s/p right ankle [place] Encounter Details Date Type Department Care Team (Late st Contact Info) Description 10/19/2019 3:30 PM EST Office Visit Orthopaedics at [facility] [place] [address] [facility] [place] [address] S/P hardware removal Social History Tobacco Use [...] Pulse 85 10/19/2019 3:34 PM EST Temperature - - Respiratory Rate - - Oxygen Saturation - - Inhaled Oxygen Concentration - - Weight 90.7 kg (200 lb) 10/19/2019 3:34 PM EST Height 182.9 cm (6') 10/19/2019 3:34 PM EST Body Mass Index 27.12 10/19/2019 3:34 PM EST documented in this encounter Progress Notes * Sara Nunez MD - 10/19/2019 3:30 PM EST Chief complaint: Status post removal of hardware right ankle; date of surgery 08/04/2019 History of present illness: Vinay presents today for wound check. He was last seen in office about 3weeks ago, at which point in time he was noted to have a small suture abscess. This was decompressed and he was placed on oral Bactrim. He notes he has not really been compliant with taking the antibiotics and has at least 6 days worth of pills left. Overall, however, he feels as though the incisional sensitivity has subsided. He notes a clicking sound around the lateral aspect of the ankle but he notes he also had this prior to surgery Physical exam: Patient is in no acute distress. Alert and oriented. Mood and affect are appropriate Focused examination right lower extremity, surgical incisions fully healed There is no palpable fluctuance So-incisional erythema is significantly decreased He is nontender There is no tenderness at the tibiotalar joint line, and no pain with range of motion of the ankle On motor exam, there is 5/5 strength dorsiflexion, plantarflexion, inversion, eversion, EHL, FHL Sensation is intact to light touch in the sural, saphenous, deep peroneal, superficial peroneal, and tibial nerve distributions Toes are warm and well perfused with 2+ palpable DP and PT pulses Impression: - Status post removal of K wire from the right ankle; date of surgery 08/04/2019 -Suture abscess, resolved Plan: - Patient may continue to increase his activity as tolerated. I do think that the pain was clickingin his ankle is likely related to some redundant capsular tissue and scar tissue, likely related toprior trauma. Also, his preoperative x- rays do demonstrate some posttraumatic arthritis of the ankle, which may be contributing to his stiffness. I do not recommend any intervention for this at present, when and if his symptoms do worsen we would consider cortisone injections -We will follow him in clinic on an as-needed basis from here on out documented in this encounter Plan of Treatment Not on file documented as of this encounter Visit Diagnoses Diagnosis S/P hardware removal documented in this encounter Care Teams Soft Top Installer Relationship Specialty Start Date End Date Lizette Greco APRN [address] [place] [address] PCP - General Family Medicine 03/18/19 documented as of this encounter
--- OUTSIDE RECORDS SUMMARY | 2024-03-06 16:59 | XMS_ITS | Encounter Summary ---
Author Organization [facility] Address [facility] [place] [address] Care Team Providers Care Hamper Maker Machine Name Role Phone Lizette Greco LINUS Primary Care Provider [phone] Reason for Visit * Auth/Cert Specialty Diagnoses / Procedures Referred By Contac t Referred To Contact Diagnoses Symptomatic hardware right ankle Procedures PRO REMOVAL DEEP IMPLANT REMOVAL OF IMPLANT, DEEP (WRVU 5.96) Referral ID Status Reason Start Date Expiration Date Visits Re quested Visits Authorized [id number] 1 1 Encounter Details Date Type Department Care Team (Latest Contact Info) Description 08/04/2019 6:03 AM EST - 08/04/2019 10:05 AM [facility] Hospital Encounter Outpatient [place] [address] Sara Nunez MD [facility] [place] [address] Discharge Disposition: Home Social History Tobacco Use Types Packs/Day Years [...] Pressure 117/78 08/04/2019 8:45 AM EST Pulse 64 08/04/2019 9:45 AM EST Temperature 36.3 ??C (97.3 ??F) [...] closest emergency room or call the hospital rope twisting machine operator at [phone] and ask for physician avionics electronics technician covering for your physician. Questions or problems after 5pm or on a weekend: Call the [facility] rope twisting machine operator at and ask for the physician avionics electronics technician covering for your doctor. 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 year-old male who presents for removal of hardware R ankle. Past medical history: Patient Active Problem List Diagnosis Date Noted ??? Attention and concentration deficit 11/22/2015 ??? TBI (traumatic brain injury) 10/25/2015 ??? Perianal abscess 12/21/2012 ??? [id number] 12/21/2012 ??? Ankle pain 04/11/2011 Past Surgical History: Past Surgical History: Procedure Laterality Date ??? PRO COLONOSCOPY, REMV LESN, SNARE N/A 03/02/2017 COLONOSCOPY, POLYPECTOMY, REMOVAL LESION BY SNARE (WRVU 4.67) performed by Luis E Shultz MD at [facility] ENDOSCOPY Past Family History: No family history [...] Center 08/19/2019 11:30 AM Sara Nunez MD [facility] ORTH 3C [facility] documented in this encounter Miscellaneous Notes * Op Note - Sara Nunez MD - 08/04/2019 10:05 AM EST [facility] Operative Note Patient Name: Vinay Dowell : [id number] MR#: [id number] Case Date: 08/04/2019 Surgeon: Surgeon(s) and Role: [...] Operative Note Patient Name: Vinay Dowell : [id number] MR#: [id number] Case Date: 08/04/2019 Surgeon: Surgeon(s) and Role: [...] Date/Time Associated Diagnosis Comments Removal Deep Implant (30952) 08/04/2019 7:32 AM EST Symptomatic hardware right ankle Case Notes Esmark tourniquet applied to right ankle for total time of 33 minutes documented in this encounter Visit Diagnoses Diagnosis S/p R ankle lateral hardware removal 08/04/19 (Mayra)- Primary documented in this encounter Administered Medications Inactive Administered [...] Given 08/04/2019 6:30 AM EST 1,000 mg gabapentin (Neurontin) capsule 600 mg 600 mg, Oral, ONCE, 1 dose, On Aimee 08/04/19 at 0630, Day of Surgery (Day of Procedure), Routine Given 08/04/2019 6:30 AM EST 600 mg documented in this encounter Active and Recently [...] (Due) documented in this encounter Care Teams Hamper Maker Machine Relationship Specialty Start Date End Date Lizette Greco APRN [address] [place] [address] PCP - General Family Medicine 03/18/19 documented as of this encounter
--- OUTSIDE RECORDS SUMMARY | 2024-03-06 17:00 | XMS_ITS | Encounter Summary ---
[place] [address] Care Team Providers Care It Application Architect Name Role Phone Helene Wilson MD Primary Care Provider [phone] Encounter Details Date Type Department Care Team (Late st Contact Info) Description 04/11/2011 [place] [phone] Kary Rhoades, RN Social History Tobacco Use Types Packs/Day Years Used Date Smoking Tobacco: Never Assessed Sex and Gender Information Value Date Recorded Sex Assigned at Not on file Gender Identity Not on file Sexual Orientation Not on file documented as of this encounter Plan of Treatment Not on file documented as of this encounter Visit Diagnoses Not on filedocumented in this encounter Care Teams It Application Architect Relationship Specialty Start Date End Date Helene Wilson MD [address] [place] [address] PCP - General 07/16/10 03/17/19 documented as of this encounter
--- OUTSIDE RECORDS SUMMARY | 2024-03-06 17:00 | XMS_ITS | Encounter Summary ---
Author Organization [facility] [place] [address] Care Team Providers Care Exercise Teacher Name Role Phone Helene Wilson MD Primary Care Provider [phone] Reason for Referral * Psychiatric (Routine) - Specialty Diagnoses / Procedures Referred By Contac t Referred To Contact Psychiatry Diagnoses TBI (traumatic brain injury), sequela Procedures Therapy Ye Braswell MD [facility] [place] [address] [facility] Psychiatry [address] [place] [address] Referral ID Status Reason Start Date Expiration Date V isits Requested Visits Authorized [id number] Consult, Test & Treat 01/29/2015 01/29/2016 3 3 Encounter Details Date Type Department Care Team (Late st Contact Info) Description 01/29/2015 12:45 PM EDT Office [place] [address] Eveline Loco MD [facility] [place] [address] TBI (traumatic brain injury), sequela Discharge Disposition: Home Social History Tobacco Use [...] Sign Reading Time Taken Comments Blood Pressure 135/65 01/29/2015 1:06 PM EDT Pulse 75 01/29/2015 1:06 PM EDT Temperature - - Respiratory Rate - - Oxygen Saturation - - Inhaled Oxygen Concentration - - Weight 90.7 kg (200 lb) 01/29/2015 1:06 PM EDT Height 188 cm (6' 2) 01/29/2015 1:06 PM EDT Body Mass Index 25.68 01/29/2015 1:06 PM EDT documented in this encounter Patient Instructions * Patient Instructions* Ye Braswell MD - 01/29/2015 1:35 PM EDT 1. Follow up in 6 months, to be scheduled 2. It would be ideal to see a Psychologist 3. Please visit [email or web address].tbinrc.com/ to get additional information regarding TBI (Traumatic Brain Injury) Also, [email or web address]://www.braintrauma.org/links/educational-resources/ documented in this encounter Progress Notes * Ye Braswell MD - 01/29/2015 1:13 PM EDT Neurology Clinic Note Patient Name: Vinay Dowell : 1985 PCP: HELENE WILSON MD Clinic Attending: Dr. Loco Patient ID: Vinay Dowell is a 29 y.o. male here in follow up for management of post- traumatic migraines. Patient Active Problem List Diagnosis ??? Perianal abscess ??? [id number] ??? Ankle pain Interval History: Mr Dowell returns in follow up. He states that he didn't take any of the medication prescribed; recommended zonisamide during last visit however he didn't start it. He had tried riboflavin and magnesium oxide however discontinued this secondary to worsening of headaches after one month. He states that he has not been having frequent headaches. He reports that he started to fill out a headache log however was unable to keep up with it. He reports that he does not recall his last headache. He doesn't know how long his headaches last. He reports that when he eats his headache dies down. He reports that he eats a lot of spinach however doesn't recall anything in his diet that may be worsening his headaches or exacerbation of them. He has reported that he hasn't been eating as much candy as previously. He occasionally uses ibuprofen less than twice a week at most. 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 He is frustrated that we have been focusing on headaches and will like to further explore other problems he may have, has difficulty explaining his problems citing that his family may be contributing. No past medical history on file. Medications: Current Outpatient Prescriptions on File Prior to Visit Medication Sig Dispense Refill ??? zonisamide (ZONEGRAN) 100 mg Capsule Take 1 capsule by mouth daily. 90 capsule 3 No current facility-administered medications on file prior to visit. Allergy: No Known Allergies Review of systems: Constitutional: No fevers or chills Eyes: No vision changes, no diplopia, no blurry vision ENT: No rhinorrhea or pharyngitis, no meningismus CV: No chest pain or palpitations Resp: No cough, no shortness of breath GI: No nausea, vomiting, diarrhea or constipation : No dysuria, no incontinence Heme: No bleeding or bruising Endo: No polyuria or cold intolerance Neuro: See HPI Psych: No depression, normal sleep [x] Review of systems otherwise negative Physical Exam: Vitals: Temp: -- Heart Rate: [75] Resp: -- BP: (135)/(65) SpO2: -- Gen: Patient of apparent stated age, well nourished, well developed, awake, alert, NAD Neuro Exam: MS: AAOx4, clear language, no dysarthria, follows commands CN: PERRL, EOMI, visual sadler full Facial sensation intact, no facial asymmetry Hearing intact to finger rub Palate elevates symmetrically, tongue protrudes midline SCM and trap strength intact Motor: Normal bulk and tone. Moving all extremities symmetrically Sensation: Intact to light touch throughout Coordination: Finger to nose intact, no dysmetria, no tremor Gait: Stable, steady Labs: No results found for this or any previous visit (from the past 24 hour(s)). Diagnostic Tests and Imaging: No new imaging studies Assessment / Plan: Vinay Dowell is a 29 y.o. male with history of TBI with diffuse axonal injury presenting with cognitive issues, anxiety and sleep disturbance with infrequent migraines. He has been resistant to starting prophylactic medications so will hold off on this. He reports that his problems consist of problems with concentration as well as mood problems (agitation). Given his current complaints, it would be reasonable to have the patient see a psychologist to work through his problems. I provided him some educational information on symptoms with TBI and how to navigate these symptoms. Plan: Episodic migraine, TBI cognitive problems/anxiety - Naproxen or ibuprofen PRN - Prophylactic medications not desired by patient - f/u in [address] Beronica Braswell MD Neurology Resident, PGY-3 Personal Pager [phone] documented in this encounter Plan of Treatment Scheduled Referrals Name Type Priority Associated Diagnoses Order Schedule Referral to Psychology Outpatient Referral Routine Tbi (Traumatic Brain Injury), Sequela Ordered: 01/29/2015 documented as of this encounter Visit Diagnoses Diagnosis TBI (traumatic brain injury), sequela documented in this encounter Care Teams Exercise Teacher Relationship Specialty Start Date End Date Helene Wilson MD [address] [place] [address] PCP - General 07/16/10 03/17/19 documented as of this encounter
--- OUTSIDE RECORDS SUMMARY | 2024-03-06 17:00 | XMS_ITS | Referral Summary ---
Author Organization [facility] Address [address] [place] [address] Care Team Providers Care Wedding Designer Name Role Phone Helene Wilson MD Primary Care Provider [phone] Social History Tobacco Use Types Packs/Day Years Used Date Smoking Tobacco: Never Assessed Interpersonal Safety Answer Date Record ed Physically Hurt Never 03/25/2020 Verbally Threaten Not on file 03/25/2020 Sex and Gender Information Value Date Recorded Sex Assigned at Not on file Gender Identity Not on file Sexual Orientation Not on file Plan of Treatment Not on file Care Teams Wedding Designer Relationship Specialty Start Date End Date Helene Wilson MD [address] [place] [address] PCP - General 07/04/15
--- OUTSIDE RECORDS SUMMARY | 2024-03-06 17:00 | XMS_ITS | Encounter Summary ---
Author Organization [facility] Address [facility] [place] [address] Care Team Providers Care Lead Fabricator Name Role Phone Helene Wilson MD Primary Care Provider Encounter Details Date Type Department Care Team (Late st Contact Info) Description 03/02/2017 Orders [place] [address] Luis E Shultz MD [facility] [place] [address] Social History Tobacco Use Types Packs/Day Years [...] on filedocumented in this encounter Care Teams Lead Fabricator Relationship Specialty Start Date End Date Helene Wilson MD [address] [place] [address] PCP - General 07/16/10 03/17/19 documented as of this encounter
--- OUTSIDE RECORDS SUMMARY | 2024-03-06 17:00 | XMS_ITS | Encounter Summary ---
Author Organization [facility] [place] [address] Care Team Providers Care Teacher Of The Deaf/Hard Of Hearing Name Role Phone Helene Wilson MD Primary Care Provider [phone] Encounter Details Date Type Department Care Team (Late st Contact Info) Description 02/11/2013 Telephone [place] [id number] Tori Siddiqi PA [address] [place] [address] Social History Tobacco Use Types Packs/Day Years Used Date Smoking Tobacco: Every Day Cigarettes Sex and Gender Information Value Date Recorded Sex Assigned at Not on file Gender Identity Not on file Sexual Orientation Not on file documented as of this encounter Miscellaneous Notes * Telephone Encounter - Tori Siddiqi PA - 02/11/2013 10:32 AM EDT Was able to reach patient at home today re recurrent perirectal abscess. He reports a single recurrence (?) of abscess since he was last seen in clinic-- he experienced sensation of fullness, pain, drainage in same location as the last abscess-- has since resolved fully. He also reports that he nowhas a lesion in his groin suspicious for abscess (he is not sure whether it is an abscess or folliculitis, but reports that it is very large and painful). He would like to proceed with EUA to assess for fistula. We will arrange. I advised him to follow-up with his PCP re the groin lesion. We will schedule EUA and contact him with date/time. Tori Siddiqi PA-C Division of Colon & Rectal Surgery [facility] [phone] documented in this encounter Plan of Treatment Not on file documented as of this encounter Visit Diagnoses Not on filedocumented in this encounter Care Teams Teacher Of The Deaf/Hard Of Hearing Relationship Specialty Start Date End Date Helene Wilson MD [address] [place] [address] PCP - General 07/16/10 03/17/19 documented as of this encounter
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
--- OUTSIDE RECORDS SUMMARY | 2024-03-06 17:00 | XMS_ITS | Encounter Summary ---
Author Organization [facility] Address [facility] [place] [address] Care Team Providers Care It Architect Name Role Phone Helene Wilson MD Primary Care Provider [phone] Encounter Details Date Type Department Care Team (Late st Contact Info) Description 04/21/2016 Telephone General Surgery at [facility] [place] [id number] Lyndsey Amezcua APRN [facility] [place] [address] Social History Tobacco Use Types Packs/Day Years [...] encounter Miscellaneous Notes * Telephone Encounter - Lyndsey Amezcua APRN - 04/21/2016 1:06 PM EDT Left message for Vinay to check in r/t distress shared with OT at last visit. Had offered to get himinto clinic last week, but due to the travel, he had declined. Left him a message today to explore how we can be helpful to him. Delma Amezcua APRN, CBIS Trauma Division, Section of Trauma and Acute Care Surgery Department of General Surgery, [facility] documented in this encounter Plan of Treatment Not on file documented as of this encounter Visit Diagnoses Not on filedocumented in this encounter Care Teams It Architect Relationship Specialty Start Date End Date Helene Wilson MD [address] [place] [address] PCP - General 07/16/10 03/17/19 documented as of this encounter
--- OUTSIDE RECORDS SUMMARY | 2024-03-06 17:00 | XMS_ITS | Encounter Summary ---
Author Organization Formerly [facility] [place] [address] Care Team Providers Care Technical Staff Engineer Name Role Phone Helene Wilson MD Primary Care Provider Encounter Details Date Type Department Care Team (Late st Contact Info) Description 04/07/2016 2:00 PM EDT Office [place] [address] Sandra Borrego, OT [facility] PHYSICAL MEDICINE & [place] [address] TBI (traumatic brain injury), with loss of consciousness of 30 minutes or less, sequela; Attention and concentration deficit Social History Tobacco [...] Progress Notes * Sandra Borrego, OT - 04/07/2016 2:00 PM EDT OCCUPATIONAL THERAPY TREATMENT NOTE REFERRAL SOURCE: Fredrick Arreguin DIAGNOSIS: 1. 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 Attention and concentration deficit NEXT MD FOLLOW UP: 01/11/16 VISIT NUMBER: 6 TOTAL TREATMENT TIME: 65 minutes TIMED CODE TREATMENT TIME: 65 minutes HISTORY: Vinay Dowell is a 30 [...] alone. PAIN: At Rest: 0/10 With Activity: 5-7/10 Frontal lobe; top of head Vision: Assessment of vision is ongoing; Patient [...] 20-60 hours a week FUNCTIONAL LIMITATIONS: Vinay Dowlel identifies difficulty with the following functional activities using the Patient Specific Functional Scale (PSFS): 0/10 (unable to perform) to 10/10 (Able to perform without difficulty) Activity At Evaluation 03/10/16 1.) Emotional changes; lack of control 5 7 2.) Forgetting information 5 7 3.) feeling vulnerable When completing IADLs 5 5 Total: Average Score 5 6 MENTAL FUNCTION: Global mental functions Consciousness/ state of awareness and alertness: person, place, time and situation Temperament and personality: Appropriate. Specific mental functions The [place] Cognitive Assessment was desinged as a rapid screening instrument for mild cognitive Function. It assessed different cognitive domains: attention and concentration, executive function, memory, language, visuoconstructional skills, conceptual thinking, calculations, and orientation. Subtest Score Date: Visuospatial / executive 4/5 Naming 3/3 Attention reading digit spans 2/2 Attention Vigilance 1/ Attention serial 7 subtraction 3/3 Language sentence repetition 2/2 Language Verbal fluency 08/24 Abstraction 2/2 Delayed Recall 4/5 Orientation 6/6 [...] 0/6 0/6 False Positives unrelated 0/6 0/6 Administered the following subtests of the Test of Everyday Attention (TEA). The TEA is a standardized, normed assessment of various forms of attention. 03/26/16: 1) Map Search: 77 approximate percentile equivalent: 50% for one minute approximate percentile equivalent: 50% for two minutes 2) Elevator Countin/7 (normal) 3) Elevator Counting with Distraction: 03/02 approximate percentile equivalent: 25% 4) Visual Elevator: 03/02 accurate responses; 3.03 seconds per switch approximate percentile equivalent accuracy scores: 25% Approximate percentile equivalent timing scores: 75% 5) Elevator Counting with Reversal: 04/02 apprroximate percentile equivalent 56.6-69.2% 6) Telephone Search: 19 targets in 41 seconds= 2.16 seconds per target apprroximate percentile equivalent 95% 7) Telephone Search While Counting: dual task decrement -0.16 approximate percentile equivalent for time per target scores: 96.7-98.5% approximate percentile equivalent for dual task decrement: 79.8%-87.8% 8) Lottery: 06/02 approximate percentile equivalent: 75% TREATMENT TODAY: Unable to complete formal assessment of attention today via the TEA because the assessment tool wasunavailable. Therapeutic Activity Equipment/Environment Level of assistance Response Facilitated skilled discussion on home exercise program completion (Patient agreed to apply external memory aids of writing information down, organizing/ putting items in same place, and developing routines Apply internal memory strategies of decreasing stressors, getting appropriate amount of sleep, rehearsal, visualizing, chunking, and categorizing. Additionally, patient was to record triggers for changes in mood; record examples of when patient forgets information, apply strategies for managing yolande r ) Quiet environment Direct verbal cues for instruction Patient reported limited carryover since last session. Patient agreed to try to apply strategies between visits and record triggers for changes in mood/ instances of increased irritability Reviewed community resources Quiet environment, informational handouts Facilitated skilled discussion Last two sessions: Patient verbalized interest in [employer] and agreed to use handout provided to contact local class regarding participation Patient verbalized understanding of how to access [employer] for support groups and other resources Patient reports that he has not followed up with the above mentioned community resources at this time. Patient reports that he puts other people before himself and does not feel as though he has timeto access these resources Discussed results of TEA Quiet environment Facilitated skilled discussion of strengths in attentionand deficits in alternating attention and auditory selective attention Patient verbalized understanding of test scores. Patient reports that he feels the scores accurately reflect his current level of function stating i.e. Regarding dual tasking, patient stated that he enjoys multitasking and feelslike he preforms better when there is a lot going on however he reports feeling sensitive to noise and agrees that he has a difficult time with selective auditory attention. Patient able to verbalize understanding of strengths and challenges with application to task analysis to improve accuracy and efficiency with ADL/IADL performance Reviewed use of [id number]-[id number]-review to improve patients planning and organizing for completion of IADLS Quiet environment Facilitated skilled discussion Patient became tearful when asked to identify a goal for completion between sessions. Patient unable to participate in iqzb-[id number]-review method this session. Patient expressed a number of psychosocial concerns. Patient educated on potential benefits of having a trained professional to speak with regarding concerns. Patient agreed. Referring provider, Lyndsey Amezcua, contacted for referral. ASSESSMENT: Vinay Dowell presents with reports of difficulty with emotional regulation and occasionally decreased recall of information. Deficits in planning, organization, and visual scanning alsonoted. Patient has received education on organizational, memory, and attention-based strategy use for improved IADL performance. Patient reports limited carryover with strategy use at this time. Patient would benefit from practice and repetition of strategies. Patient has received education on strategies for improved emotional regulation. Again, patient reports limited carryover with strategies. Patient would benefit form practice and repetition however patient's progress is dependent on improved carryover between sessions. After completion of the TEA, deficits noted in auditory selective attention as well as alternating attention. Deficits in selective attention may contribute to patient'sdifficulty with mental manipulation/working memory and patient's reports of decreased recall as he is often working and completing IADLs in a distracting environment. Deficits in alternating attention may contribute to task break down with IADL performance and patient's perceived sense of memory deficits as he is inconsistent in returning to initial task after switching his attention and difficulty holding conversations due to loosing his train of thought. Patient will benefit from short term OT services to maximize patients safety, efficiency, accuracy, and independence with IADL performance. [facility] Goals (to be met by discharge): Date [...] to recall information from conversations Goal Status: Met 04/07/16 Vinay Dowell will be able to verbalize [...] consciousness of 30 minutes or less, sequela Attention and concentration deficit Attention or concentration deficit documented in this encounter Care Teams Technical Staff Engineer Relationship Specialty Start Date End Date Helene Wilson MD [address] [place] [address] PCP - General 07/16/10 03/17/19 documented as of this encounter
--- OUTSIDE RECORDS SUMMARY | 2024-03-06 17:00 | XMS_ITS | Encounter Summary ---
Author Organization [facility] Address [facility] [place] [address] Care Team Providers Care Retail Account Executive Name Role Phone Helene Wilson MD Primary Care Provider [phone] Encounter Details Date Type Department Care Team (Late st Contact Info) Description 03/05/2011 [place] [address] Moses Bernal MD [facility] [place] [address] Ankle pain (Primary Dx) Social History Tobacco Use Types Packs/Day Years Used Date Smoking Tobacco: Never Assessed Sex and Gender Information Value Date Recorded Sex Assigned at Not on file Gender Identity Not on file Sexual Orientation Not on file documented as of this encounter Plan of Treatment Not on file documented as of this encounter Results * XR ankle minimum 3 views (04/14/2011 10:10 AM EDT) Anatomical Region Laterality Modality Ankle N/A Radiographic Daniela ging 04/14/2011 10:1 0 AM EDT Impressions 04/15/2011 8:47 AM EDT IMPRESSION: ?? Tibiotalar joint osteoarthritis with increased subchondral sclerosis in the tibial plafond when compared to the last exam. LEFT ANKLE, THREE VIEWS: ??Remote talar fracture with fixation screws. ??The talar fracture lines are completely obliterated indicating healing. ??The left tibiotalar joint space is relatively preserved and no effusion. ??A ghost screw tract is in the left posterior calcaneus. ??The left posterior subtalar joint space is eccentrically narrowed with osteophyte formation. IMPRESSION: ?? Healed talar fracture without change in appearance. Left posterior subtalar joint osteoarthritis. Narrative 04/15/2011 8:47 AM EDT BILATERAL ANKLES, MULTIPLE VIEWS: HISTORY: ??Bilateral ankle pain. COMPARISON STUDY: ??March 11, 2006. FINDINGS: ?? RIGHT ANKLE: ??Right tibiotalar joint osteoarthritis is characterized by subchondral sclerosis, more pronounced than the 2005 examination, although the tibiotalar joint space is maintained. ??There is osteophyte formation. ??The fixation screws in both medial and lateral malleoli are unchanged in alignment and no radiolucencies. ??The fracture lines are completely obliterated. ??No right ankle effusion. Procedure Note Bambi Romero MD - 04/15/2011 BILATERAL ANKLES, MULTIPLE VIEWS: HISTORY: Bilateral ankle pain. COMPARISON STUDY: March 11, 2006. FINDINGS: RIGHT ANKLE: Right tibiotalar joint osteoarthritis is characterized by subchondral sclerosis, more pronounced than the 2005 examination, althoughthe tibiotalar joint space is maintained. There is osteophyte formation. The fixation screws in both medial and lateral malleoli are unchanged inalignment and no radiolucencies. The fracture lines are completely obliterated. No right ankle effusion. IMPRESSION IMPRESSION: Tibiotalar joint osteoarthritis with increased subchondral sclerosis inthe tibial plafond when compared to the last exam. LEFT ANKLE, THREE VIEWS: Remote talar fracture with fixation screws. The talar fracture lines are completely obliterated indicating healing. Theleft tibiotalar joint space is relatively preserved and no effusion. A ghostscrew tract is in the left posterior calcaneus. The left posterior subtalarjoint space is eccentrically narrowed with osteophyte formation. IMPRESSION: Healed talar fracture without change in appearance. Left posterior subtalar joint osteoarthritis. Moses Bernal MD IMG DX ORDERABLES documented in this encounter Visit Diagnoses Diagnosis Ankle pain- Primary Pain in joint, ankle and foot Ankle pain Pain in joint, ankle and foot documented in this encounter Care Teams Retail Account Executive Relationship Specialty Start Date End Date Helene Wilson MD [address] [place] [address] PCP - General 07/16/10 03/17/19 documented as of this encounter
--- OUTSIDE RECORDS SUMMARY | 2024-03-06 17:00 | XMS_ITS | Clinical Summary ---
Author Organization [facility] Address [address] [place] [address] Care Team Providers Care Hydropress Operator Name Role Phone Helene Wilson MD Primary Care Provider [phone] Social History Tobacco Use Types Packs/Day Years Used Date Smoking Tobacco: Never Assessed Interpersonal Safety Answer Date Record ed Physically Hurt Never 03/25/2020 Verbally Threaten Not on file 03/25/2020 Sex and Gender Information Value Date Recorded Sex Assigned at Not on file Gender Identity Not on file Sexual Orientation Not on file Plan of Treatment Health Maintenance Due Date Last Done Comments Hepatitis C Screen 1985 Hepatitis B Vaccine (1 of 3 - 19+ 3-dose series) 06/23 COVID-19 Vaccine ( season) 2023 Care Teams Hydropress Operator Relationship Specialty Start Date End Date Helene Wilson MD [address] [place] [address] PCP - General 07/04/15
--- OUTSIDE RECORDS SUMMARY | 2024-03-06 17:00 | XMS_ITS | Encounter Summary ---
Author Organization [facility] Address [facility] Isaiah lozano [place] [id number] Care Team Providers Care [facility] Name Role Phone Helene Wilson MD Primary Care Provider [phone] Reason for Referral * Consultation (Routine) - Closed Specialty Diagnoses / Procedures Referred By Contac t Referred To Contact General Surgery Diagnoses Traumatic brain injury with loss of consciousness, unspecified duration, sequela Ye Braswell MD [facility] [place] [address] Lyndsey Amezcua APRN [facility] [place] [address] Referral ID Status Reason Start Date Expiration Date V isits Requested Visits Authorized [id number] Closed Specialty Service Requested 07/03/2015 07/02/2016 1 1 Encounter Details Date Type Department Care Team (Late st Contact Info) Description 07/03/2015 3:00 PM EST Office Visit Neurology at [place] [phone] Ye Braswell MD [facility] [place] [address] Cora Lucas MD [facility] [place] [address] Traumatic brain injury with loss of consciousness, unspecified duration, sequela Social History Tobacco Use Types Packs/Day [...] Sign Reading Time Taken Comments Blood Pressure 124/65 07/03/2015 3:17 PM EST Pulse 81 07/03/2015 3:17 PM EST Temperature - - Respiratory Rate - - Oxygen Saturation - - Inhaled Oxygen Concentration - - Weight 90.7 kg (200 lb) 07/03/2015 3:17 PM EST Height 188 cm (6' 2) 07/03/2015 3:17 PM EST Body Mass Index 25.68 07/03/2015 3:17 PM EST documented in this encounter Patient Instructions * Patient Instructions* Ye Braswell MD - 07/03/2015 4:15 PM EST 1. You were seen for Traumatic Brain Injury Sequelae 2. You will follow up with a trauma Surgery RN, Delma Amezcua 3. You will have a phone number to establish a PCP here at [facility] 4. Please call or email me with any additional questions documented in this encounter Progress Notes * Cora Lucas MD - 07/04/2015 12:53 PM EST Attending attestation note: I saw the patient, and discussed the plan with both the patient and resident. I agree with the resident's documentation and treatment plan as outlined in the note. The patient has cognitive deficits and other post concussive symptoms that have remained bothersome. He tends to prefer to avoid medicines, but may benefit from some counseling and education about the nature and sequelae of his brain in jury, thus, we recommend a consultation with Delma Amezcua APRN. Cora Lucas MD * Ye rBaswell MD - 07/03/2015 3:34 PM EST Neurology Clinic Note Patient Name: Vinay Dowell : 1985 PCP: HELENE WILSON MD Clinic Attending: Dr. Lucas Patient ID: Vinay Dowell is a 30 y.o. male here in follow up for management of post- traumatic migraines. Patient Active Problem List Diagnosis ??? Perianal abscess ??? [id number] ??? Ankle pain Interval History: Mr Dowell returns in follow up. He states that he is doing pretty good. He is sore from work he is doing currently; working on a [employer]. 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 He states that he has been having pretty good headaches. He notices that he has headaches after work, thinks he may be dehydrated and develop symptoms. He will notice preliminary symptoms such as a murmur of a headache that may come on. He will eat something and the headache won't progress. This occurs about 6x in a month or so. He hasn't had any severe migraines that cause him to isolate himself from the rest of the world. Sleep is veryhelpful and he has been sleeping more consistently than previously. He says that he has been very stressed at work, works 7 days a week (working throughout June). He says that he continues to have some cognitive problems secondary to stressors causing him anxiety. He doesn't have examples of things and says he hasn't been logging things as he should have. He has done abnormal things such as grabbing his keys instead of tooth brush. He is wondering if he should continue brain scans. Smoking: he is smoking 1 ppd EtOH: denies No past medical history on file. Medications: [...] Physical Exam: Vitals: Temp: -- Heart Rate: [81] Resp: -- BP: (124)/(65) SpO2: -- Gen: Patient of apparent stated [...] Assessment / Plan: Vinay Dowell is a 30 y.o. male with history of TBI with diffuse axonal injury presenting with cognitive issues, anxiety and sleep disturbance with infrequent migraines. He has been resistant to starting prophylactic medications so will hold off on this. He reports that his problems consist of problems with concentration as well as mood problems (agitation). His headaches are largely controlled as he had determined his trigger is decreased PO intake; eating and drinking is a means of preventing headache from worsening. It would be reasonable to have him see Delma Clark of General Surgery service and she may be able to determine other resources he may benefit from such as speech therapy, counseling or whether psychiatric management is appropriate. Plan: Episodic migraine, TBI cognitive problems/anxiety - Naproxen or ibuprofen PRN - Prophylactic medications not desired by patient - Delma Clark, General Surgery RN Discussed with Dr. Shayy Braswell MD Neurology Resident, PGY-3 Personal Pager [phone] documented in this encounter Plan of Treatment Scheduled Referrals Name Type Priority Associated Diagnoses Orde r Schedule Referral to General Surgery Outpatient Referral Routine Traumatic Brain Injury With Loss Of Consciousness, Unspecified Duration, Sequela Ordered: 07/03/2015 documented as of this encounter Visit Diagnoses Diagnosis Traumatic brain injury with loss of consciousness, unspecified duration, sequela documented in this encounter Care Teams [facility] Relationship Specialty Start Date End Date Helene Wilson MD [address] [place] [address] PCP - General 07/16/10 03/17/19 documented as of this encounter
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
--- OUTSIDE RECORDS SUMMARY | 2024-03-06 17:00 | XMS_ITS | Encounter Summary ---
Author Organization [facility] Address [facility] [place] [address] Care Team Providers Care Dag Sprayer Name Role Phone Helene Wilson MD Primary Care Provider [phone] Reason for Visit * Reason Comments Skin Check FULL SKIN EXAM Encounter Details Date Type Department Care Team (Late st Contact Info) Description 06/20/2013 4:00 PM EDT Office Visit Dermatology at [facility] [address] [place] [address] CLINIC, DR ASHU Pearce, Isaac Cee MD [facility] [place] [address] Lichen simplex chronicus (Primary Dx) Discharge Disposition: Home Social History Tobacco Use Types Packs/Day Years Used Date Smoking Tobacco: Every Day Cigarettes Sex and Gender Information Value Date Recorded Sex Assigned at Not on file Gender Identity Not on file Sexual Orientation Not on file documented as of this encounter Progress Notes * Lorri Morejon - 06/20/2013 4:36 PM EDT DERMATOLOGY CONSULT NOTE Date of service: 06/20/2013 Vinay Dowell : 1985 Provider: Isaac Pearce MD PROBLEM: Full skin exam HPI Vinay Doewll is a 27 y.o. year old male. Patient states that he has several bumps located on his scrotum. He states that they ooze fairly frequently. He states that in the past he he might have hadfolliculitis. He has tried several bouts of antibiotics with no results. Patient states that he tends to get fluid filled lesions scattered on his body. 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 no Less than 2 year old? DO YOU HAVE AN ARTIFICIAL HEART VALVE? no What blood thinner do you take? no Do you take antibiotics before procedures?no ADR: No Known Allergies MEDS: Current Outpatient Prescriptions Medication Sig Dispense Refill ??? [DISCONTINUED] OXYcodone (ROXICODONE) 5 mg immediate release tablet Take 1-2 tablets by mouth every 6 hours as needed for Pain. No driving, no alcohol 25 tablet 0 ??? [DISCONTINUED] ibuprofen (ADVIL;MOTRIN) 800 mg tablet 800mg, PO, Q8H,PRN ROS General: feeling well Skin: denies other skin complaints EXAM General: NAD, pleasant, cooperative Skin: A total body skin exam except for areas covered by underwear was performed. This includes examination of the skin of the face, ears, neck, chest, axillae, left and right upper and lower extremities, hands and feet, abdomen, and except the areas covered by underwear were not examined. Significant skin findings: A. Blotchy pigmentation and telangiectasia on sun-exposed skin with subtle yellowish cobblestoned appearance. Located on all sun exposed areas. B.Multiple, 0.3-0.5cm, medium-brown, evenly-pigmented macules and papules. All with regular pigmentpattern on dermoscopy. No pigmented lesions suspicious for melanoma. Located on the back C. Multiple Excoriated nodules on scrotum ASSESSMENT/PLAN: A..Solar Elastosis The nature of sun-induced photo-aging and skin cancers is discussed. Sun avoidance, protective clothing, and the use of 30-SPF sunscreens is advised. Observe closely for skin damage/changes, and callif such occurs. B.Benign appearing nevi Patient reassured. Advised to monitor and observe skin for changes. Call if such occurs C. Epidermal inclusion cyst/lichen simplex chronic, located on the scrotum I discussed this condition with the patient and explored therapeutic options. I recommended applying triamcinolone ointment twice daily for 3 weeks. Follow up appointment in 2 months. Sooner should problems arise. I am documenting this encounter acting as the scribe for and in the presence of Dr. Pearce: Lorri Morejon I performed the above scribed service and agree with the accuracy of the documentation in this encounter. Isaac Pearce MD Section of Dermatology [facility] documented in this encounter Plan of Treatment Not on file documented as of this encounter Visit Diagnoses Diagnosis Lichen simplex chronicus- Primary Lichenification and lichen simplex chronicus documented in this encounter Care Teams Dag Sprayer Relationship Specialty Start Date End Date Helene Wilson MD [address] [place] [address] PCP - General 07/16/10 03/17/19 documented as of this encounter
--- OUTSIDE RECORDS SUMMARY | 2024-03-06 17:00 | XMS_ITS | Encounter Summary ---
Author Organization [facility] Address [facility] [place] [address] Care Team Providers Care Residential Door Unit Installer Name Role Phone AngusLizette LINUS Primary Care Provider [phone] Encounter Details Date Type Department Care Team (Late st Contact Info) Description 04/20/2006 Orders [place] [address] Moses Lanza MD [facility] [place] [address] Social History Tobacco Use Types Packs/Day Years Used Date Smoking Tobacco: Never Assessed Sex and Gender Information Value Date Recorded Sex Assigned at Not on file Gender Identity Not on file Sexual Orientation Not on file documented as of this encounter Plan of Treatment Not on file documented as of this encounter Procedures Procedure Name Priority Date/Time Associated Diagnosis Comments SURGICAL PATHOLOGY REPORT Routine 04/20/2006 12:53 PM EDT documented in this encounter Results * Surgical Pathology Report (04/20/2006 12:53 PM EDT) Surgical Pathology Report [id number] ? Location: The signing pathologist has (i) examined the relevant preparation(s) for the specimen(s) and (ii) rendered or confirmed the diagnosis(es). . ?Pathology Surgical Pathology Final Report Clinical Information Specimen Submitted: A - Mass: ??right neck. Clinical History: 20 yr old male with right face lesion (neck). Clinical Diagnosis: Chin mass. Gross Description Labeled/Fixative : ? Mass, right neck; fresh. Qty/Size/Weight: ?Single, 1.9 x 1.0 x 0.6 cm. Tissue Description: ?? Ellipse of hairy skin with soft, white subcutaneous ?tissue. ??Sectioning reveals firm, white, homogeneous ?nodules. Sections/Process ing: ??The specimen is inked and serially sectioned, ?submitted in total in (A1-A2). ?? (T2) ??aje/ELF Microscopic Description Slides reviewed, microscopic description not recorded. Diagnosis Skin with keloid, right neck CR-0 04/21/06 VAM 04/21/06 Verified by: ? Idris Kidd MD ?Pathologist ?(Electronic Signature) The attending pathologist whose signature appears on this report has reviewed all diagnostic slides and has edited the gross and/or microscopic portion of the report in rendering the final pathologic diagnosis. ERNESTO DIAS 04/20/2006 12:5 3 PM EDT Moses Lanza MD PATHOLOGY/CYTOLOGY O RDERABLES ERNESTO DIAS documented in this encounter Visit Diagnoses Not on filedocumented in this encounter Care Teams Residential Door Unit Installer Relationship Specialty Start Date End Date Lizette Greco APRN [address] [place] [address] PCP - General Family Medicine 03/18/19 documented as of this encounter
--- OUTSIDE RECORDS SUMMARY | 2024-03-06 17:00 | XMS_ITS | Encounter Summary ---
Author Organization [facility] Address [facility] [place] [address] Care Team Providers Care Ship'S Cook Name Role Phone Helene Wilson MD Primary Care Provider [phone] Encounter Details Date Type Department Care Team (Late st Contact Info) Description 04/14/2011 9:49 AM EDT - 04/14/2011 11:59 PM EDT Hospital Encounter XRay at [address] [place] [address] Ankle pain Social History Tobacco Use Types Packs/Day Years Used Date Smoking Tobacco: Every Day Cigarettes Sex and Gender Information Value Date Recorded Sex Assigned at Not on file Gender Identity Not on file Sexual Orientation Not on file documented as of this encounter Medications at Time of Discharge Medication Sig Dispensed Refills Start Date End Date ibuprofen (ADVIL;MOTRIN) 800 mg tablet 800mg, PO, Q8H,PRN 03/22/2009 06/20/20 13 documented as of this encounter Plan of Treatment Not on file documented as of this encounter Procedures Procedure Name Priority Date/Time Associated Diagnosis Comments XR ANKLE MINIMUM 3 VIEWS Routine 04/14/2011 10:10 AM EDT Ankle pain documented in this encounter Results * XR ankle minimum [...] by subchondral sclerosis, more pronounced than the 2006 examination, althoughthe tibiotalar joint space is maintained. [...] in this encounter Visit Diagnoses Diagnosis Ankle pain Pain in joint, ankle and foot documented in this encounter Care Teams Ship'S Cook Relationship Specialty Start Date End Date Helene Wilson MD [address] [place] [address] PCP - General 07/16/10 03/17/19 documented as of this encounter
--- OUTSIDE RECORDS SUMMARY | 2024-03-06 17:00 | XMS_ITS | Encounter Summary ---
Author Organization [facility] Address [facility] [place] [address] Care Team Providers Care Professor Of Theater Name Role Phone Helene Wilson MD Primary Care Provider [phone] Encounter Details Date Type Department Care Team (Latest Contact Info) Description 06/12/2016 1:00 PM EDT - 06/12/2016 11:59 PM EDT Hospital Encounter XRay at [address] [place] [address] Moses Bernal MD [facility] [place] [address] Chronic pain of both ankles Discharge Disposition: Home Social History Tobacco Use [...] Sig Dispensed Refills Start Date End Date Ibuprofen 200 mg Capsule Take 200 mg by mouth daily. naproxen sodium (ANAPROX) 220 mg Tablet Take 220 mg by mouth 2 times daily (with meals). 04/22/2019 documented as of this encounter Plan of Treatment Not on file documented as of this encounter Procedures Procedure Name Priority Date/Time Associated Diagnosis Comments XR ANKLE MIN 3 VIEWS BILAT Routine 06/12/2016 3:53 PM EDT Chronic pain of both ankles documented in this encounter Results * XR Ankle Min 3 views Bilat (Generic) (06/12/2016 3:53 PM EDT) Anatomical Region Laterality Modality Ankle Bilateral Digital Radiogra phy Impressions 06/12/2016 4:13 PM EDT No significant interval changes from the examination of 2010. Narrative 06/12/2016 4:13 PM EDT EXAMINATION: XR ANKLE MIN 3 VIEWS BILAT (GENERIC) CLINICAL HISTORY: Bilat ankle pain, removal of hardware? TECHNIQUE: Frontal, lateral and oblique radiographs of the bilateral ankles COMPARISON: 08/30/2003 and 04/14/2011. FINDINGS: Patient is status post ORIF of the bilateral ankles. Bilateral hardware is in position, unchanged compared to prior examination. No acute fracture, no dislocation. 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 Procedure Note Olivia Lane MD - 06/12/2016 EXAMINATION: XR ANKLE MIN 3 VIEWS BILAT (GENERIC) CLINICAL HISTORY: Bilat ankle pain, removal of hardware? TECHNIQUE: Frontal, lateral and oblique radiographs of the bilateralankles COMPARISON: 08/30/2003 and 04/14/2011. FINDINGS: Patient is status post ORIF of the bilateral ankles. Bilateral hardware isin position, unchanged compared to prior examination. No acute fracture, no dislocation. The osteoarthritic changes of the right tibiotalar joint as well as theleft posterior subtalar joint are stable. IMPRESSION No significant interval changes from the examination of 2010. Moess Bernal MD IMG DX ORDERABLES documented in this encounter Visit Diagnoses Diagnosis Chronic pain of both ankles documented in this encounter Care Teams Professor Of Theater Relationship Specialty Start Date End Date Helene Wilson MD [address] [place] [address] PCP - General 07/16/10 03/17/19 documented as of this encounter
--- OUTSIDE RECORDS SUMMARY | 2024-03-06 17:00 | XMS_ITS | Encounter Summary ---
Author Organization [facility] Address [facility] [place] [address] Care Team Providers Care Services Host Name Role Phone Helene Wilson MD Primary Care Provider [phone] Encounter Details Date Type Department Care Team (Late st Contact Info) Description 10/26/2014 1:45 PM EST [place] [address] Jean-Paul Rodriguez MD [facility] [place] [address] Acute post-traumatic headache, not intractable Discharge Disposition: Home Social History Tobacco Use [...] Sign Reading Time Taken Comments Blood Pressure 123/64 10/26/2014 1:49 PM EST Pulse 86 10/26/2014 1:49 PM EST Temperature - - Respiratory Rate - - Oxygen Saturation - - Inhaled Oxygen Concentration - - Weight 90.7 kg (200 lb) 10/26/2014 1:49 PM EST Height 188 cm (6' 2) 10/26/2014 1:49 PM EST Body Mass Index 25.68 10/26/2014 1:49 PM EST documented in this encounter Patient Instructions * Patient Instructions* Ye Braswell MD - 10/26/2014 3:14 PM EST 1. You should start a medications to prevent headaches, zonisamide 100 mg nightly. Increase this by100 mg Monitor for side effects which can include somnolence, fatigue, light headed symptoms 2. Naproxen sodium 550 mg (OTC) should be taken when you have the headache 3. Follow up to be scheduled in 3 months or sooner if necessary, please call with any documented in this encounter Progress Notes * Ye Braswell MD - 10/26/2014 1:56 PM EST Neurology Clinic Note Patient Name: Vinay Dowell : 1985 PCP: HELENE WILSON MD Clinic Attending: Dr. Rodriguez Patient ID: Vinay Dowell is a 29 y.o. male here in follow up for management of post- traumatic migraines. Patient Active Problem List Diagnosis ??? Perianal abscess ??? [id number] ??? Ankle pain Interval History: Mr Dowell returns in follow up. He reports that he tried Riboflavin and magnesium oxide however felt like his headaches increased in frequency and discontinued these medications after one month. Hadbeen once a month. Stopped medication. Headaches became less severe. He states the frequency of headaches is not consistent, sometimes occuring once a month and sometimes more. Headaches are frontal and throbbing. No vomiting when he gets HAs now which is contrast to when he had headaches when he was a teenager. They can last all day and then go away after he goes to sleep. He reports concurrent +photophobia, +phonophobia. Nothing really helps. Will lay down in dark room and take ibuprofen. Ibuprofen helps, but even that is minimal. He reports that he also has blurry vision during headaches. Gets chills while having them. He states that he can tell when they are coming on however is unable to articulate the sensation. History reviewed. No pertinent past medical history. Medications: Current Outpatient Prescriptions on File Prior to Visit Medication Sig Dispense Refill ??? [DISCONTINUED] magnesium oxide (MAG-OX) 400 mg Tablet Take 1 tablet by mouth daily. 30 tablet 12 ??? [DISCONTINUED] riboflavin 100 mg Tablet Take 4 tablets by mouth daily. 260 tablet 6 No current facility-administered medications on file prior [...] Physical Exam: Vitals: Temp: -- Heart Rate: [86] Resp: -- BP: (123)/(64) SpO2: -- Gen: Patient of apparent stated age, well nourished, well developed, awake, alert, NAD Neuro Exam: MS: AAOx4, clear language, no dysarthria, follows commands, able to recall three things after five minutes ([place], [place], Chair), performs serial 7's without issue CN: PERRL, EOMI, visual sadler full Facial sensation intact, no facial asymmetry Hearing intact to finger rub Palate elevates symmetrically, tongue protrudes midline SCM and trap strength intact Motor: Normal bulk and tone. UE: 5/5 R, 5/5 L Arm abduction at shoulder 5/5 R, 5/5 L Elbow extension 5/5 R, 5/5 L Elbow flexion 5/5 R, 5/5 L Drilling Plant Operator - 5/5 Right, 5/5 Left 5/5 R, 5/5 L Thumb abduction (APB) 5/5 R, 5/5 L Finger abduction LE: 5/5 R, 5/5 L Hip flexion 5/5 R, 5/5 L Knee extension 5/5 R, 5/5 L Knee flexion 5/5 R, 5/5 L Foot dorsiflexion 5/5 R, 5/5 L Foot plantar flexion Sensation: Intact to light touch, temperature, and vibration throughout Reflexes: DTRs 2+ R, 2+ L Biceps 2+ R, 2+ L Brachioradialis 2+ R, 2+ L Triceps 2+ R, 2+ L Patellar 2+ R, 2+ L Achilles tendon Babinski - R down, L down Coordination: Finger to nose intact, no dysmetria Rapid alternating movements & finger tapping smooth and symmetric Heel-ogden intact No tremor Gait: Stable, steady Labs: No results found for this or any previous visit (from the past 24 hour(s)). Diagnostic Tests and Imaging: No new imaging studies Assessment / Plan: Vinay Dowell is a 29 y.o. male with history of TBI with diffuse axonal injury presenting with cognitive issues, anxiety and sleep disturbance as well as frequent episodic migraines without aura. I suspect that many of his symptoms are exacerbated by the living conditions and family/friend interactions that he has. He reports that riboflavin and magnesium were ineffective and actually made them worse. He had neuropyshiatric evaluation and was reportedly average with some problems evident with anxiety. It would be reasonable to start a medication for migraine prophylaxis, zonisamide 100 mg qhs with plans to titrate up to 300 mg qhs over the next few weeks. He can also obtain naproxen sodiumOTC for headache abortive management. Will obtain CBC, BMP today as baseline labs and may repeat infollow up. He remains unsure of whether he would like to take the headache prophylaxis however was provided a written Rx. He will call with any additional questions or concerns. An alternative treatment to try if zonisamide is ineffective would be amitriptyline however zonisamide is the preferred agent as it does not result in cognitive decline. Plan: Episodic migraine, TBI cognitive problems/anxiety - Zonisamide 100 mg qhs with titration up to 300 mg qhs - Naproxen sodium 550 mg bid PRN - CBC, BMP - RTC in [address] Michael Braswell MD Neurology Resident, PGY-3 Personal Pager [phone] Neurology (Staff) Addendum I saw and evaluated the patient. I have reviewed the resident's history, physical examination findings, assessment and plan during the visit and I agree with the details as written, unless otherwise specified as below. Jean-Paul Rodriguez MD documented in this encounter Plan of Treatment Not on file documented as of this encounter Procedures Procedure Name Priority Date/Time Associated Diagnosis Comments HEMOGRAM Routine 10/26/2014 3:56 PM EST Acute post-traumatic headache, not intractable DIFFERENTIAL, AUTOMATED Routine 10/26/2014 3:56 PM EST Acute post-traumatic headache, not intractable CBC (WITH DIFF) Routine 10/26/2014 3:56 PM EST Acute post-traumatic headache, not intractable BASIC METABOLIC PANEL (NON-FASTING) Routine 10/26/2014 3:56 PM EST Acute post-traumatic headache, not intractable documented in this encounter Results * Differential, Automated (10/26/2014 3:56 PM EST) Neutrophils % 54.8 % CERNER MILLENNIUM Neutr Abs (ANC) 4.83 1.50 - 6.30 x10(3)/mcL CERNER MILLENNIUM Lymphocytes % 35.6 % CERNER MILLENNIUM Lymphocytes Abs 3.1 1.0 - 3.6 x10(3)/mcL CERNER MILLENNIUM Monocytes % 7.5 % CERNER MILLENNIUM Monocyte Abs 0.7 0.2 - 1.0 x10(3)/mcL CERNER MILLENNIUM Eosinophils % 1.4 % CERNER MILLENNIUM Eosinophils Abs 0.1 0.0 - 0.5 x10(3)/mcL CERNER MILLENNIUM Basophils % 0.6 % CERNER MILLENNIUM Basophils Abs 0.0 0.0 - 0.2 x10(3)/mcL CERNER MILLENNIUM Immature Gran % 0.10 % CERN ER MILLENNIUM Comment: Immature granulocytes(IG's)percentage and absolute count will include metamyelocytes, myelocytes, and promyelocytes. Blood smears from CBCs yielding IG's will be scanned manually for concordance. If this scan disagrees with the automated IG or if promyelocytes are noted, a manual differential will be performed. Lesa Gran Abs 0.01 0.00 - 0.05 x10(3)/mcL CERNER MILLENNIUM Blood specimen (specimen) 10/26/2014 3:56 PM EST 10/26/2014 4:06 PM EST Narrative Resulting Agency Comment Spec In Lab Jean-Paul Rodriguez MD HEMATOLOGY ORDER RADHA Performing Organization Address City/[facility]/ZIP Co de Phone Number CERNER MILLENNIUM * (ABNORMAL) Hemogram (10/26/2014 3:56 PM EST) WBC 8.8 4.0 - 10.0 x10(3)/mcL CERNER MILLENNIUM RBC 4.82 4.63 - 6.08 x10(6)/mcL CERNER MILLENNIUM Hemoglobin 15.7 13.7 - 17.5 gm/dL CERNER MILLENNIUM Hematocrit 45.3 40.0 - 51.0 % CERNER MILLENNIUM MCV 94.0(H) 79.0 - 92.0 fL CERNER MILLENNIUM MCH 32.6(H) 25.6 - 32.2 pg CERNER MILLENNIUM MCHC 34.7 32.0 - 36.5 gm/dL CERNER MILLENNIUM Platelets 235 145 - 370 x10(3)/mcL CERNER MILLENNIUM RDWSD 45.3 35.0 - 46.0 fL CERNER MILLENNIUM RDWCV 13.2 10.9 - 14.4 % CERNER MILLENNIUM MPV 10.3 9.0 - 12.0 fL CERNER MILLENNIUM Blood specimen (specimen) 10/26/2014 3:56 PM EST 10/26/2014 4:06 PM EST Narrative Resulting Agency Comment Spec In Lab Jean-Paul Rodriguez MD HEMATOLOGY ORDER RADHA Performing Organization Address City/[facility]/ZIP Co de Phone Number CERNER MAUDEENNIUM * Basic Metabolic Panel (non-fasting) (10/26/2014 3:56 PM EST) Glucose Lvl 89 60 - 199 mg/dL CERNER MILLENNIUM Comment:Diabetes: >=200 mg/d L plus symptoms BUN 12 10 - 20 mg/dL CERNER MILLENNIUM Creatinine 0.90 0.80 - 1.50 mg/dL CERNER MILLENNIUM Comment: Please note that the pediatric reference intervals supplied above were not validated at [facility]. Results from pediatric patients should be interpreted in conjunction to the patient's age, height and muscle mass. Sodium 144 135 - 145 mmol/L CERNER MILLENNIUM Potassium 4.0 3.5 - 5.0 mmol/L CERNER MILLENNIUM Comment: Please note: ??Patients with WBC >100,000 may have falsely elevated Potassium levels. ??For accurate Potassium quantification in these patients send serum separator tube (gold top) for subsequent determinations. ??Contact the Clinical Chemistry Laboratory if there are any questions. Chloride 103 98 - 107 mmol/L CERNER MILLENNIUM CO2 30 22 - 31 mmol/L CERNER MILLENNIUM Anion Gap 11 5 - 15 mmol/L CERNER MILLENNIUM Calcium 9.6 8.5 - 10.5 mg/dL CERNER MILLENNIUM Estimated GFR >60 >=60 CERNER MILLENNIUM Comment: This estimated GFR (eGFR) value was calculated using the MDRD equation which has been validated on patients between the ages of 18 and 70. The MDRD should not be used to assess kidney function in patients < 18 years of age or in patients with extremes of body mass, or in patients with acute kidney failure. This value should be multiplied by 1.2 for patients. For further information please copy and paste the following links into your internet browser. [email or web address]/DHnkdep [email or web address]://[email or web address]/DHMCnkf Blood specimen (specimen) 10/26/2014 3:56 PM EST 10/26/2014 4:06 PM EST Narrative Resulting Agency Comment Spec In Lab Jean-Paul Rodriguez MD [facility] ERNESTO DIAS documented in this encounter Visit Diagnoses Diagnosis Acute post-traumatic headache, not intractable Acute post-traumatic headache documented in this encounter Care Teams Services Host Relationship Specialty Start Date End Date Helene Wilson MD [address] [place] [address] [id number] PCP - General 07/16/10 03/17/19 documented as of this encounter
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
--- OUTSIDE RECORDS SUMMARY | 2024-03-06 17:00 | XMS_ITS | Encounter Summary ---
Author Organization Formerly [facility] [place] [address] Care Team Providers Care Feather Renovator Name Role Phone Helene Wilson MD Primary Care Provider [phone] Encounter Details Date Type Department Care Team (Late st Contact Info) Description 11/26/2015 3:30 PM EDT Office [place] [address] Sandra Borrego, OT [facility] [place] [address] Attention and concentration deficit Social History Tobacco [...] Progress Notes * Sandra Borrego, OT - 11/26/2015 3:21 PM EDT OCCUPATIONAL THERAPY TREATMENT NOTE REFERRAL SOURCE: Fredrick Arreguin DIAGNOSIS: 1. Attention and concentration deficit NEXT MD FOLLOW UP: 01/11/16 VISIT NUMBER: 2 TOTAL TREATMENT TIME: 56 minutes TIMED CODE TREATMENT TIME: Evaluation 56 minutes HISTORY: Vinay Dowell is a 30 [...] and personality: Appropriate. Specific mental functions The Zearing Cognitive Assessment was desinged as a rapid screening instrument for mild cognitive Function. It assessed different cognitive domains: attention and concentration, executive function, memory, language, visuoconstructional skills, conceptual thinking, calculations, and orientation. Subtest Score Date: Visuospatial / executive 4/5 Naming 3/3 Attention reading digit spans 2/2 Attention Vigilance 1/1 Attention serial 7 subtraction 3/3 Language sentence repetition 2/2 Language Verbal fluency 1/ Abstraction 2/2 Delayed Recall 4/5 Orientation 6/6 Total Score 28/30 Normal Score >/=26/30 Add 1 point if </= 12 years of education Hopkin's Verbal Learning Test 12 Words Norms Free Recall --- Norms- Recall Trial #1 11/02 7.17 Trial #2 03/04.17 Trial #3 05/05 9.88 Recognition --- Norms- Recognition True Positives 08/04 11.88 False Positives related 0/6 False Positives unrelated 0/6 TREATMENT TODAY: Education provided on OT role and purpose Unable to complete formal assessment of attention today via the TEA because the assessment tool wasunavailable. Assessed attention via informal probing via simulated multiple errands test Repetition of rational provided for therapeutic activity: simulated multiple errands test Therapeutic Activity Position Equipment/Environment Level of assistance Repetitions/ Time Response Multiple errands: patient provided with a 7 item task list with instructions to complete as efficiently and accurately as possible without excessive rushing Dynamic standing 7 item task list; 3 itemsrequiring multiple steps Mod-max, direct verbal cues to encourage planning, visual scanning, and accuracy 45 minutes Patient chose to forgo recommended planning phase and begin task list immediately.When asked what the patient was going to do first he replied I don't know, I guess I will head to the cafeteria because I already know where that is Along the route, patient failed to notice the email producer which was one of his errands to be completed. At the cafeteria, patient had to re-read his ta sks list to recall what he was to accomplish. Patient continued to reference and re-reference taskslist for previously read information. Patient required direct cuing for orientation to identify what floor of the hospital he was on. Patient walked past items he was looking for at the gift shop on 3 occasions before asking for help to locate items. Patient did not notice signs directing him to his next destination. Patient paused part way through to attempt planning route however stopped planning saying this map doesn't make any sense to me Patient had to return to areas of the hospital to retrieve previously missed information and only partially retrieved information from some locations. Overall, poor planning, organization, and visual scanning resulting in inefficient task completion.Patient did demonstrate good use of resources by requesting help when needed. Patient was able to recall general details obtained from simulated errands test answering 2/3 questions Patient education provided on strategies to improve attention Informational handout provided on internal and external strategies for improved attention Facilitated skilled discussion Patient agrees that his attention is better when he limits distractions and focuses on one task at a time. Patient agreed to practice strategies at home between visits ASSESSMENT: Vinay Dowell presents with reports of [...] efficiency, accuracy, and independence with IADL performance. correction Goals (to be met by discharge): Date [...] recall information from conversations Goal Status: In progress Vinay Dowell will be able to verbalize [...] deficit documented in this encounter Care Teams Feather Renovator Relationship Specialty Start Date End Date Helene Wilson MD [address] [place] [address] PCP - General 07/16/10 03/17/19 documented as of this encounter
--- OUTSIDE RECORDS SUMMARY | 2024-03-06 17:00 | XMS_ITS | Encounter Summary ---
Author Organization [facility] Address [facility] [place] [address] Care Team Providers Care Linux Developer Name Role Phone Helene Wilson MD Primary Care Provider [phone] Encounter Details Date Type Department Care Team (Late st Contact Info) Description 06/12/2011 5:40 PM EDT - 06/12/2011 5:59 PM EDT Hospital Encounter XRay at [address] [place] [address] Social History Tobacco Use Types Packs/Day Years [...] on filedocumented in this encounter Care Teams Linux Developer Relationship Specialty Start Date End Date Helene Wilson MD [address] [place] [address] PCP - General 07/16/10 03/17/19 documented as of this encounter
--- OUTSIDE RECORDS SUMMARY | 2024-03-06 17:00 | XMS_ITS | Encounter Summary ---
[place] [address] Care Team Providers Care Speech Therapist Early Intervention Name Role Phone Helene Wilson MD Primary Care Provider [phone] Encounter Details Date Type Department Care Team (Late st Contact Info) Description 06/11/2011 Abstract [place] [phone] Lorri Fung, [facility] [place] [address] Social History Tobacco Use Types Packs/Day Years Used Date Smoking Tobacco: Every Day Cigarettes Sex and Gender Information Value Date Recorded Sex Assigned at Not on file Gender Identity Not on file Sexual Orientation Not on file documented as of this encounter Plan of Treatment Not on file documented as of this encounter Visit Diagnoses Not on filedocumented in this encounter Care Teams Speech Therapist Early Intervention Relationship Specialty Start Date End Date Helene Wilson MD [address] [place] [address] PCP - General 07/16/10 03/17/19 documented as of this encounter
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
--- OUTSIDE RECORDS SUMMARY | 2024-03-06 17:00 | XMS_ITS | Encounter Summary ---
[place] [address] Care Team Providers Care Theoretical Physicist Name Role Phone Helene Wilson MD Primary Care Provider [phone] Encounter Details Date Type Department Care Team (Late st Contact Info) Description 03/05/2017 Tele[place] [phone] Chapis Garcia RN Social History Tobacco Use Types Packs/Day [...] encounter Miscellaneous Notes * Telephone Encounter - Chapis Garcia RN - 03/05/2017 11:49 AM EDT Received VM from [facility]. States there is a problem with insurance coverage on a prescription that sent after his colonoscopy yesterday. Call returned to Hildreth at home #. He is not available but was asked to call him at [phone]. Call to [facility]. LM returning his call. documented in this encounter Plan of Treatment Not on file documented as of this encounter Visit Diagnoses Not on filedocumented in this encounter Care Teams Theoretical Physicist Relationship Specialty Start Date End Date Helene Wilson MD [address] [place] [address] PCP - General 07/16/10 03/17/19 documented as of this encounter
--- OUTSIDE RECORDS SUMMARY | 2024-03-06 17:00 | XMS_ITS | Encounter Summary ---
Author Organization [facility] [place] [address] Care Team Providers Care Linux Engineer Name Role Phone Helene Wilson MD Primary Care Provider [phone] Encounter Details Date Type Department Care Team (Late st Contact Info) Description 01/06/2013 11:00 AM EDT Office [place] [address] Tori Siddiqi PA [address] [place] [address] Perianal abscess (Primary Dx) Discharge Disposition: Home Social History Tobacco Use Types Packs/Day Years Used Date Smoking Tobacco: Every Day Cigarettes Sex and Gender Information Value Date Recorded Sex Assigned at Not on file Gender Identity Not on file Sexual Orientation Not on file documented as of this encounter Last Filed Vital Signs Vital Sign Reading Time Taken Comments Blood Pressure 111/64 01/06/2013 11:54 AM EDT Pulse 89 01/06/2013 11:54 AM EDT Temperature 36.9 ??C (98.4 ??F) 01/06/2013 11:54 AM E DT Respiratory Rate 16 01/06/2013 11:54 AM EDT Oxygen Saturation 100% 01/06/2013 11:54 AM EDT Inhaled Oxygen Concentration - - Weight 87.6 kg (193 lb 2 oz) 01/06/2013 11:54 AM EDT Height 188 cm (6' 2) 01/06/2013 11:54 AM EDT Body Mass Index 24.8 01/06/2013 11:54 AM EDT documented in this encounter Progress Notes * Tori Siddiqi PA - 01/06/2013 11:56 AM EDT Colorectal Surgery Outpatient Consultation Note [place] [address] FAX: PCP: HELENE WILSON MD Referring Provider: Helene Wilson [phone] HPI:Vinay Dowell is a pleasant 27 y.o. male whom we were asked to see by Dr. Wilson regarding recurrent perianal abscess. By way of history, he had presented to the [facility] ED on 12/21/2012 with complaints of a left perirectal lump, pain, swelling for a few days. He reported that he had had similar symptoms in his remote past, and that a cyst had been drained. This occurred in [facility], but he is unsure of how may years ago it was. This is the first recurrence of symptoms since that time. When he presented to the ED, Colorectal Surgery was consulted for evaluation. A large perirectal abscess of the left buttock was incised and drained, with no complications. He was discharged to home,with instructions to perform QID sitz baths. He had been scheduled for an appointment in [facility] for 12/27/2012 for follow-up, but did not show for the appointment. He returns today for that follow-up. He reports that since discharge from the ED, his symptoms have fully resolved. He does still experience some mild discomfort in his bottom, but it is nothing like the pain that prompted his ED visit. He wears a small gauze on his bottom daily, changes it about 4 times a day, notes a small amount of yellow-yaw pink discharge, but notenough to saturate that pad. He reports no pain in the area, no sense of a mass re-accumulating. Hedenies any recent fevers or chills. He is moving his bowels at baseline, once a day, soft, no pain,no bleeding, no protracted bouts of constipation or diarrhea. No incontinence to solid, liquid or gas. He does report occasional incontinence to urine, but no burning, no frequency. Past medical history: Patient Active Problem List Diagnoses Code ??? Ankle pain 719.47 ??? Perianal abscess 566 ??? [id number] 565.1 Past surgical history: Ankle surgery about 15 years ago Allergies: NKDA Medications: Oxycodone, ibuprofen, colace Social history: reports that he has been smoking Cigarettes. He has been smoking about .5 packs perday. He does not have any smokeless tobacco history on file. He drinks 0-10 drinks a week. Family medical history: No colon cancer, Crohn's or UC Review of Systems as above; otherwise: Constitutional: Negative for fever, chills, activity change, mild fatigue and unexpected weight change. HEENT: Negative for sore throat, mouth sores and trouble swallowing. Eyes: Negative. Respiratory: Negative for cough, shortness of breath and wheezing. Cardiovascular: Negative for chest pain, palpitations and leg swelling. Gastrointestinal: Negative for nausea, vomiting, abdominal pain, diarrhea, constipation and abdominal distention. Genitourinary: Negative for dysuria and difficulty urinating. Musculoskeletal: Negative. Skin: Negative. Neurological: Negative. Hematological: Negative for adenopathy. Physical Exam: There were no vitals taken for this visit. There is no height or weight on file to calculate BMI. Gen: NAD, very happy young man HEENT: Neck supple, no cervical or supraclicavular adenopathy, no carotid bruit appreciated Pulm: CTAB, no crackles/wheeze Card: Regular rate/rhythm, no m/r/g, no JVD Abd: Non-distended, soft, non-tender to palpation Ext: WWP x 4, no edema Rectal Exam: The patient was examined in the [id number] position with Sami assisting. Gentleeversion of the anoderm revealed a small <0.5cm lesion approximately 1 cm from the anal verge onthe left, well healing, no surrounding erythema, no fluctuance, no tenderness to palpation, no purulent material expressed on gentle massage. Digital exam was unremarkable. A time-out was conducted just before the start of the procedure to verify the correct patient and procedure, procedure location, and all relevant critical information. Anoscopy was performed into the rectum and revealed no abnormalities, no internal opening, no evidence of fistula. The patient tolerated the procedure well. Impression: Recurrent perirectal abscess, well healing since I&D Plan: had a lengthy discussion with the patient regarding the etiology and pathophysiology or perirectal abscess and fistula formation. This is the second time he has had the abscess occur. As such, it is advisable to take him to the OR for an exam under anesthesia to explore for fistula. Treatmentoptions will depend on the amount of sphincter muscle involvement once we are able to better assessthe patient in the OR. If a fistula is found, and there is a small amount of sphincter muscle involvement, will likely perform fistulotomy. We discussed that this would be the definitve treatment fora fistula. We also discussed that this procedure would carry about a 10% risk of incontinence, likely to gas, likely temporary. If there is a large amount of muscle involvement, we will opt instead for a seton, likely a cutting seton. We discussed the procedure, alternatives, benefits and the following specific risks: infection, bleeding, cardiopulmonary risks, recurrence, changes to continence and others. All questions were answered, and Consent was signed. Until surgery, recommended that the patient perform sitz baths (or showers, as he prefers) at least 4 times a day for 10-15 minutes at atime. He was advised to call our clinic with any questions, concerns or return of symptoms at any time for further evaluation. Patient discussed with Dr. Rashawn Cordova, and this note reflects our close collaboration and agreement. Tori Siddiqi PA-C Division of Colon & Rectal Surgery [facility] [phone] documented in this encounter Plan of Treatment Not on file documented as of this encounter Visit Diagnoses Diagnosis Perianal abscess- Primary Abscess of anal and rectal regions documented in this encounter Care Teams Linux Engineer Relationship Specialty Start Date End Date Helene Wilson MD [address] [place] [address] PCP - General 07/16/10 03/17/19 documented as of this encounter
--- OUTSIDE RECORDS SUMMARY | 2024-03-06 17:00 | XMS_ITS | Encounter Summary ---
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 Role Phone Helene Wilson MD Primary Care Provider [phone] Reason for Visit * Reason Comments Cyst Encounter Details Date Type Department Care Team (Late st Contact Info) Description 12/21/2012 11:33 AM EDT - 12/21/2012 6:19 PM EDT [place] [address] Salvador Tineo PA [address] [address] Rashawn Cordova MD [facility] [place] [address] Perianal abscess (Primary Dx) Discharge Disposition: Home Social History Tobacco Use Types Packs/Day Years Used Date Smoking Tobacco: Every Day Cigarettes Sex and Gender Information Value Date Recorded Sex Assigned at Not on file Gender Identity Not on file Sexual Orientation Not on file documented as of this encounter Last Filed Vital Signs Vital Sign Reading Time Taken Comments Blood Pressure 114/74 12/21/2012 6:00 PM EDT Pulse 72 12/21/2012 6:00 PM EDT Temperature 36.9 ??C (98.4 ??F) 12/21/2012 11:37 AM E DT Respiratory Rate 18 12/21/2012 6:00 PM EDT Oxygen Saturation 100% 12/21/2012 6:00 PM EDT Inhaled Oxygen Concentration - - Weight 81.6 kg (180 lb) 12/21/2012 11:37 AM EDT Height - - Body Mass Index 23.11 06/12/2011 4:20 PM EDT documented in this encounter Discharge Instructions * Discharge Instructions* Salvador Tineo PA - 12/21/2012 2:43 PM EDT DIVISION OF COLON & RECTAL SURGERY Anorectal Surgery Patient Post-operative Discharge Instructions 1. Wound Care ?? Leave the dressing intact today and remove it tomorrow morning. If you need to move your bowels,the dressing may be removed sooner. ?? Expect some drainage - this may be residual pus, or may be a small amount of blood or mucus - this is normal / expected. ?? Please use fluffy 4x4 gauze to absorb any drainage and keep your bottom dry. ?? You may have some packing your wound that you should remove in the sitz bath tomorrow morning. ?? Please use a sitz bath or shower 3 - 4X per day (starting tomorrow morning). ?? Sitz bath instructions: Soak your buttocks in plain warm tapwater for 15 minutes 4X/day. This iscomforting and also increase blood flow to the area to aid in healing. ?? You may sit on a pillow but do not sit on donut cushions as it spreads the buttocks. 2. Pain medications ?? Please take cwpi-swl-hzoiknk pain medications for post-operative discomfort. ?? Acetaminophen (Tylenol) 1000 mg by mouth every 6 hours. ?? Ibuprofen (Motrin/Advil) 600 mg by mouth every 6 hours with food & plenty of liquids. ?? You may alternate these medications every 3 hours. ?? For example Tylenol at 12pm, Ibuprofen at 3pm, Tylenol at 6pm, Ibuprofen at 9 pm. ?? In addition please use prescribed narcotic pain medication as instructed for severe pain. 3. Avoid getting constipated ?? Drink lots of water and fluids (over 2 liters per day). ?? Each morning please take a daily fiber supplement (such as Citrucel or BeneFiber), one heaping tablespoon in 8 oz. of water. (MiraLax may be recommended instead of fiber) ?? While taking narcotic pain medications please also take a stool softener (Colace 100 mg two to three times per day). ?? If you do not have a bowel movement in 48 hours then take 60 cc of Milk of Magnesia every 12 hours until you have a bowel movement. If you do not have a bowel movement after 2 doses of Milk of Magnesia please call (see below). 4. When to call ?? Fever > 101.5 F ?? worsening pain ?? active bleeding, passing blood clots ?? difficulty/inability to pass urine (urinary retention) or stool (constipation) ?? any other worrisome condition or question ?? during regular work hours call the Surgery Clinic at ?? after hours / nights / weekends / holidays: call and ask for the General Surgery Resident doctor On-Call. 4. Follow-up. You will have a follow-up appointment with Tori Siddiqi PA-C, December 27 at 10am clinic 4L. If you have any questions, please call . Divison of Colon and Rectal Surgery ??? [facility] ??? [address] ??? [place] [address] ??? [phone] ??? ~~~~~~~~~~~~~~~~~~~~~~~~~~~~~~~~~~~~~~~~~~~~~~~~~~~~~~~~~~~~~~~~~~~~~~~~ documented in this encounter Medications at Time of Discharge Medication Sig Dispensed Refills Start Date End Date OXYcodone (ROXICODONE) 5 mg immediate release tablet Take 1-2 tablets by mouth every 6 hours as needed for Pain. No driving, no alcohol 25 tablet 0 12/21/2012 06/20/2013 ibuprofen (ADVIL;MOTRIN) 800 mg tablet 800mg, PO, Q8H,PRN 03/22/2009 3 documented as of this encounter H&P Notes * Rashawn Cordova - 12/21/2012 2:56 PM EDT DEPARTMENT OF COLORECTAL CONSULT NOTE CONSULT REASON: Perianal abscess ID:Vinay Dowell is a 27 y.o. male with LEFT buttock pain and hx of perianal abscesses HPI: Patient first noted swelling and redness in his left buttock region two days ago. This pressure feeling became more painful over the last 24hours. He denies bleeding and/or drainage. He reports eating very little for concern of initiating a bowel movement ie pain. He denies hx of BRBPR. He denies hx of pain with defecation. He has no hx of incontinence to liquid/gas/solid stool. He reports soft formed bowel movement daily. No hx of chronic diarrhea. 2 prior I&D by General surgeon [facility]. No prior EUA. Multiple other spontaneous drainage from region. Always on Left buttock. Occurs approx. Annually. He uses heat, hot soaks and hot showers. No tracking redness and/or swelling. No fever/chills. Pain does not refer to anywhere. PMH/PSH: Perirectal abscess s/p I&D x2 Traumatic injury to C spine Traumatic injury to bilateral ankles MEDICATIONS: No current facility-administered medications on file prior to encounter. Current Outpatient Prescriptions on File Prior to Encounter Medication Sig Dispense Refill ??? DISCONTD: doxycycline (VIBRA-TABS) 100 mg tablet Take 100 mg by mouth daily. ??? DISCONTD: ASIA'S WORT ORAL Take by mouth daily as needed. ??? DISCONTD: Ginseng 100 mg Cap Take by mouth daily. ??? DISCONTD: GINKGO BILOBA (GINKGO ORAL) Take by mouth daily as needed. ??? ibuprofen (ADVIL;MOTRIN) 800 mg tablet 800mg, PO, Q8H,PRN ALLERGIES: No Known Allergies FAMILY HISTORY: Denies history of bleeding or clotting disorders. Denies history of reactions to anesthesia. No family hx of colon cancer. No family hx of IBD. SOCIAL HISTORY: History Social History ??? Marital Status: Single Spouse Name: N/A Number of Children: N/A ??? Years of Education: N/A Occupational History ??? Not on file. Social History Main Topics ??? Smoking status: Current Everyday Smoker -- 0.5 packs/day Types: Cigarettes ??? Smokeless tobacco: Not on file ??? Alcohol Use: Not on file ??? Drug Use: Not on file ??? Sexually Active: Not on file Other Topics Concern ??? Not on file Social History Narrative ??? No narrative on file REVIEW OF SYSTEMS: Constitutional:weight loss/gain: denies ; fever/chills: denies Nuerological: seizures/CVA: denies Psychiatric: depression/anxiety: denies HEENT: visual changes: denies ; Dysphagia: denies Endocrine: diabetes/thyroid: denies CV: chest pain: denies; angina/SC: denies; murmur/arrhythmia: denies Pulm: SOB/PATIÑO: denies; Asthma: denies GI: Ulcers: denies; melena/change in bowel habits: denies; hepatitis: denies : UTI: denies; hematuria: denies MSK: weakness: denies; joint pain/arthritis: denies; falls: denies Skin: jaundice: denies; breakdown: denies; rash: denies Heme: anemia: denies; transfusions: denies; bleeding/clotting d/o: denies PHYSICAL EXAM: Vitals: Afebrile Filed Vitals: 12/21/12 1430 BP: 107/48 Pulse: 83 Temp: Resp: 24 General: AAO x 3; HEENT: MMM Chest: Heart-reg Lungs-clear Abd/Pelvis: Soft, NTND No abdominal incisions No groin hernias Rectal exam: Good tone. No fissures. Rectal exam without fluctuance and/or masses. LEFT anterior perianal abscess with induration and fluctuance the size of a goose egg. Erythema andecchymosis overlying abscess. Extremities: Warm, no edema Neurological: Grossly moving all 4 ext Studies: none Labs: Recent Results (from the past 24 hour(s)) CBC (WITH DIFF) Component Value Range WBC 13.4 (*) 4.0 - 10.0 x10(3)/mcL RBC 4.68 4.63 - 6.08 x10(6)/mcL Hemoglobin 15.4 13.7 - 17.5 gm/dL Hematocrit 45.3 40.0 - 51.0 % MCV 96.8 (*) 79.0 - 92.0 fL MCH 32.9 (*) 25.6 - 32.2 pg MCHC 34.0 32.0 - 36.5 gm/dL Platelets 245 145 - 370 x10(3)/mcL RDWSD 47.5 (*) 35.0 - 46.0 fL RDWCV 13.5 10.9 - 14.4 % MPV 10.9 9.0 - 12.0 fL ELECTROLYTES PANEL Component Value Range Sodium 139 135 - 145 mmol/L Potassium 4.0 3.5 - 5.0 mmol/L Chloride 99 98 - 107 mmol/L CO2 29 22 - 31 mmol/L Anion Gap 11 5 - 15 mmol/L BUN Component Value Range BUN 7 (*) 10 - 20 mg/dL CREATININE Component Value Range Creatinine 0.85 0.80 - 1.50 mg/dL Estimated GFR >60 >=60 GLUCOSE, RANDOM Component Value Range Glucose Lvl 87 60 - 199 mg/dL PROTHROMBIN TIME Component Value Range PT 13.4 12.0 - 15.0 sec INR 1.0 0.9 - 1.1 APTT Component Value Range PTT 30 25 - 35 sec DIFFERENTIAL, AUTOMATED Component Value Range Neutrophils % 73.6 (*) 34.0 - 71.0 % Neutr Abs (ANC) 9.90 (*) 1.50 - 6.30 x10(3)/mcL Lymphocytes % 15.4 (*) 19.0 - 53.0 % Lymphocytes Abs 2.1 1.0 - 3.6 x10(3)/mcL Monocytes % 10.0 4.0 - 13.0 % Monocyte Abs 1.3 (*) 0.2 - 1.0 x10(3)/mcL Eosinophils % 0.4 0.0 - 7.0 % Eosinophils Abs 0.1 0.0 - 0.5 x10(3)/mcL Basophils % 0.3 0.0 - 2.0 % Basophils Abs 0.0 0.0 - 0.2 x10(3)/mcL Immature Gran % 0.30 0.00 - 0.66 % Lesa Gran Abs 0.04 0.00 - 0.05 x10(3)/mcL Radiology:none ASSESSMENT AND PLAN: Vinay Dowell is a 27 y.o. 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 Needs EUA in one months time for definitive dx and tx. I&D in ED-see separate procedure note. Consent signed. Time out performed. No culture indicated. Unasyn 3gm IV given. 1L LR given in ED. RECOMMENDATION DC home from ED with sitz bath QID No abx ordered Oxycodone script per ED Anorectal discharge set placed in patient dc instructions Patient to follow up in 7days with PAULETTE Tatum. Follow up with EUA to look for fistula tract in one months time Plan and patient procedure done in conjunction with Dr. Cordova. Palak Armando MD [address] General Surgery Resident Colon and Rectal Surgery Attending Patient seen, interviewed, examined, and discussed with Dr. Armando. We formulated the plan as documented above together, and I agree with the concise documentation as above. Given recurrence needs EUA when recovered to find fistula. I personally spent a total of 30 minutes in [id number] consultation with the patient, of which 20were in patient education and counseling. An additional 5 minutes were spent performing the incision and drainage. Rashawn Cordova MD, MS, FACS underpresser hand Division of Colon and Rectal Surgery [facility] Pager #[phone] documented in this encounter Procedure Notes * Palak Armando MD - 12/21/2012 2:39 PM EDTProcedure(s): INCISION AND DRAINAGE - ED ONLY Pre-Procedure Diagnose(s): Perianal abscess Post-Procedure Diagnose(s): Perianal abscess Colorectal Surgery Procedure Note Procedure Note: Informed consent obtained for an Incision and Drain of the perianal abscess. The risks and benefitswere reviewed. The patient would like to proceed with this procedure. Incision and Drainage of Perianal abscess: So anal skin injected with a 1% xylocaine with [id number] epinephrine (16cc). A fluctuant area 1cm lateral to the anal opening was selected for incision. A cruciate incision was made sharply removing the dog ears to create an ellipse. Copious amounts of pus were expressed. The wound was irrigated with 200cc normal saline until return of clear fluid. The cavity was explored showing complete drainage. Hemostasis was confirmed. Patient tolerated the procedure well. 2 mg Versed and 100cc Fentanyl were used for conscious sedation provided by ED staff for this case. Discharge instructions were provided including QID sitz baths. documented in this encounter ED Notes * Dionne Cabrera RN - 12/21/2012 6:16 PM EDT Phoned his family to come and give him a ride home. Discharged instructions given. Discharged to waiting room to wait for ride. * Dionne Cabrera RN - 12/21/2012 5:01 PM EDT Lunch given. Patient up and walking around in room. Alert and oriented x 4 * Dionne Cabrera RN - 12/21/2012 4:17 PM EDT Patient is resting comfortably. * Dionne Cabrera RN - 12/21/2012 3:10 PM EDT Patient/Family updated on plan of care. * Dionne Cabrera RN - 12/21/2012 3:10 PM EDT Patient is resting comfortably. * Salvador Tineo PA - 12/21/2012 12:19 PM EDT Images from the original note were not included. Chief Complaint Patient presents with ??? Cyst The history is provided by the patient. 27-year-old male comes in today for evaluation of a cyst along his left buttock. He, says he's had one of these in the past and it was drained. Several years ago. He has developed the same sort of sensation. Once again, over the last several days. He says the pain is accelerating. The cyst appears to be growing in size. He has not noticed any definite drainage, but did have some blood on the tissue. He says it hurts to have a bowel movement. He has not been eating as much or drinking as much recently because of that. He denies any nausea vomiting. He has been using warm compresses to her thatit seems to be getting worse despite that. Sitting makes the pain worse. Nothing seems to make it be tter other than staying off of the area. No Known Allergies Review of Systems Constitutional: Negative for fever. HENT: Negative for neck pain and neck stiffness. Respiratory: Negative for cough and shortness of breath. Cardiovascular: Negative for chest pain. Gastrointestinal: Negative for nausea, vomiting, abdominal pain and blood in stool. Genitourinary: Negative for dysuria, urgency and frequency. Musculoskeletal: Negative for back pain. Skin: Negative for rash and wound. Physical Exam Nursing note and vitals reviewed. Constitutional: He is oriented to person, place, and time. He appears well- developed and well-nourished. HENT: Head: Normocephalic and atraumatic. Neck: Normal range of motion. Neck supple. Cardiovascular: Normal rate, regular rhythm and normal heart sounds. Pulmonary/Chest: Effort normal and breath sounds normal. Genitourinary: Rectal exam shows tenderness (Over a large abscess that is perirectal). Lymphadenopathy: He has no cervical adenopathy. Neurological: He is alert and oriented to person, place, and time. Skin: Skin is warm and dry. Psychiatric: He has a normal mood and affect. His behavior is normal. Procedures MDM ED Course: The patient was evaluated as above. Given that this is a recurrence of her previous abscess in the same area and given its size. I did discuss the case with Dr. Cordova. He asked that the patient be evaluated by general surgery resident in the emergency room for possible I&D. They will see the patient here in the emergency room and the patient was discussed in detail. The patient was evaluated by surgery here in the emergency room. They performed an incision and drainage. Just prior to the incision and drainage. I did give the patient 2 mg of Versed and 100 mcg offentanyl IV. The patient was on a buckle assembler with nasal cannula oxygen. He tolerated this verywell and was kept for a period of time in the emergency room until these medications had worn off. The patient was kept on a buckle assembler and tell that time. He was discharged home by general surgery with followup in detail and instructions. Please see the surgery, note regarding this patient. The patient remained in the emergency room for several hours. He was reassessed and effects of Versed and fentanyl had passed. Patient did very well during his time in the ER. Will discharge to care of family who will drive patient home post procedure 4 hours Salvador Tineo PA 12/21/12 1822 documented in this encounter Miscellaneous Notes * Discharge Summary - Provider, Scanning - 12/27/2012 10:23 AM EDT * Miscellaneous - Provider, Scanning - 12/27/2012 10:21 AM EDT * Miscellaneous - Provider, Scanning - 12/21/2012 2:43 PM EDT * ED Triage - Krista Maldonado RN - 12/21/2012 11:39 AM EDT Patient notes a cyst on his buttock right side for a few days. He is unable to see it. He states hehad one lanced before. He has been using some warm packs and states he noted a small amount of drainage. Area not viewed at triage. He is unable to sit due to the pain. Skin pink,warm and dry. documented in this encounter Plan of Treatment Not on file documented as of this encounter Procedures Procedure Name Priority Date/Time Associated Diagnosis Comments DIFFERENTIAL, AUTOMATED STAT 12/21/2012 12:43 PM EDT CREATININE Routine 12/21/2012 12:43 PM EDT APTT STAT 12/21/2012 12:43 PM EDT PROTHROMBIN TIME STAT 12/21/2012 12:4 3 PM EDT CBC (WITH DIFF) STAT 12/21/2012 12:43 PM EDT BUN STAT 12/21/2012 12:43 PM EDT GLUCOSE, RANDOM STAT 12/21/2012 12:43 PM EDT ELECTROLYTES PANEL STAT 12/21/2012 12 :43 PM EDT documented in this encounter Results * (ABNORMAL) Differential, Automated (12/21/2012 12:43 PM EDT) Neutrophils % 73.6(H) 34.0 - 71.0 % CERNER MILLENNIUM Neutr Abs (ANC) 9.90(H) 1.50 - 6.30 x10(3)/mc L CERNER MILLENNIUM Lymphocytes % 15.4(L) 19.0 - 53.0 % CERNER MILLENNIUM Lymphocytes Abs 2.1 1.0 - 3.6 x10(3)/mc L CERNER MILLENNIUM Monocytes % 10.0 4.0 - 13.0 % CERNER MILLENNIUM Monocyte Abs 1.3(H) 0.2 - 1.0 x10(3)/mc L CERNER MILLENNIUM Eosinophils % 0.4 0.0 - 7.0 % CERNER MILLENNIUM Eosinophils Abs 0.1 0.0 - 0.5 x10(3)/mc L CERNER MILLENNIUM Basophils % 0.3 0.0 - 2.0 % CERNER MILLENNIUM Basophils Abs 0.0 0.0 - 0.2 x10(3)/mc L CERNER MILLENNIUM Immature Gran % 0.30 0.00 - 0.66 % CERNER MILLENNIUM Comment: Immature granulocytes(IG's)percentage and absolute count will include metamyelocytes, myelocytes, and promyelocytes. Blood smears from CBCs yielding IG's will be scanned manually for concordance. If this scan disagrees with the automated IG or if promyelocytes are noted, a manual differential will be performed. Lesa Gran Abs 0.04 0.00 - 0.05 x10(3)/mc L CERNER MILLENNIUM Blood specimen (specimen) 12/21/2012 12:43 PM EDT 12/21/2012 1:02 PM EDT Rashawn Cordova MD HEMATOLOGY ORDERABLE S Performing Organization Address [facility] Co de Phone Number [facility] * APTT (12/21/2012 12:43 PM EDT) PTT 30 25 - 35 sec [facility] MILLENNIUM Comment: Recommended therapeutic PTT range for full dose unfractionated heparin is 80-114 seconds. Blood specimen (specimen) 12/21/2012 12:43 PM EDT 12/21/2012 1:02 PM EDT Narrative Resulting Agency Comment Spec In Lab Rashawn Cordova MD HEMATOLOGY ORDERABLE S Performing Organization Address [facility] Co de Phone Number [facility] * Prothrombin Time (12/21/2012 12:43 PM EDT) PT 13.4 12.0 - 15.0 sec CERNER MILLENNIUM Comment: [facility] Transfusion Committee Guidelines: INR less than 2.0, PTT less than OR equal to 43.5 seconds, or Fibrinogen greater than or equal to 100 mg/dl indicate adequate procoagulant activity for hemostasis in patients without underlying bleeding disorders. INR 1.0 0.9 - 1.1 CERNER MILLENNIUM Blood specimen (specimen) 12/21/2012 12:43 PM EDT 12/21/2012 1:02 PM EDT Narrative Resulting Agency Comment Spec In Lab Rashawn Cordova MD HEMATOLOGY ORDERABLE S Performing Organization Address [facility] Co de Phone Number ERNESTO DIAS * Glucose, random (12/21/2012 12:43 PM EDT) Glucose Lvl 87 60 - 199 mg/dL [facility] Comment:Diabetes: >=200 mg/d L plus symptoms Blood specimen (specimen) 12/21/2012 12:43 PM EDT 12/21/2012 1:02 PM EDT Narrative Resulting Agency Comment Spec In Lab Rashawn Cordova MD CHEMISTRY ORDERABLES Performing Organization Address [facility] Phone Number ERNESTO DIAS * Creatinine (12/21/2012 12:43 PM EDT) Creatinine 0.85 0.80 - 1.50 mg/dL [facility] Comment: Please note that the pediatric reference intervals supplied above were not validated at [facility]. Results from pediatric patients should be interpreted in conjunction to the patient's age, height and muscle mass. Estimated GFR >60 >=60 [facility] Comment: This estimated GFR (eGFR) value was [...] the following links into your internet browser. http://www.nkdep.nih.gov/lab-evaluation.shtml http://www.kidney.org/professionals/ Blood specimen (specimen) 12/21/2012 12:43 PM EDT 12/21/2012 1:02 PM EDT Narrative Resulting Agency Comment Spec In Lab Rashawn Cordova MD CHEMISTRY ORDERABLES Performing Organization Address [facility] Co de Phone Number ERNESTO DIAS * (ABNORMAL) BUN (12/21/2012 12:43 PM EDT) BUN 7(L) 10 - 20 mg/dL CERNER MILLENNIUM Blood specimen (specimen) 12/21/2012 12:43 PM EDT 12/21/2012 1:02 PM EDT Narrative Resulting Agency Comment Spec In Lab Rashawn Cordova MD CHEMISTRY ORDERABLES Performing Organization Address [facility] de Phone Number CERNER MILLENNIUM * Electrolytes panel (12/21/2012 12:43 PM EDT) Sodium 139 135 - 145 mmol/L CERNER MILLENNIUM Potassium 4.0 3.5 - 5.0 mmol/L CERNER MILLENNIUM Comment: Please note: ??Patients with WBC >100,000 may have falsely elevated Potassium levels. ??For accurate Potassium quantification in these patients send serum separator tube (gold top) for subsequent determinations. ??Contact the Clinical Chemistry Laboratory if there are any questions. Chloride 99 98 - 107 mmol/L CERNER MILLENNIUM CO2 29 22 - 31 mmol/L CERNER MILLENNIUM Anion Gap 11 5 - 15 mmol/L CERNER MILLENNIUM Blood specimen (specimen) 12/21/2012 12:43 PM EDT 12/21/2012 1:02 PM EDT Narrative Resulting Agency Comment Spec In Lab Rashawn Cordova MD CHEMISTRY ORDERABLES Performing Organization Address [facility] Co de Phone Number CERNER MILLENNIUM * (ABNORMAL) CBC (with Diff) (12/21/2012 12:43 PM EDT) WBC 13.4(H) 4.0 - 10.0 x10(3)/mcL CERNER MILLENNIUM RBC 4.68 4.63 - 6.08 x10(6)/mcL CERNER MILLENNIUM Hemoglobin 15.4 13.7 - 17.5 gm/dL CERNER MILLENNIUM Hematocrit 45.3 40.0 - 51.0 % CERNER MILLENNIUM MCV 96.8(H) 79.0 - 92.0 fL CERNER MILLENNIUM MCH 32.9(H) 25.6 - 32.2 pg ERNESTO ROSEIUM MCHC 34.0 32.0 - 36.5 gm/dL ERNESTO ROSEIUM Platelets 245 145 - 370 x10(3)/mcL ERNESTO ROSEIUM RDWSD 47.5(H) 35.0 - 46.0 fL ERNESTO ROSEIUM RDWCV 13.5 10.9 - 14.4 % ERNESTO ROSEIUM MPV 10.9 9.0 - 12.0 fL ERNESTO ROSEIUM Blood specimen (specimen) 12/21/2012 12:43 PM EDT 12/21/2012 1:02 PM EDT Narrative Resulting Agency Comment Spec In Lab Rashawn Cordova MD HEMATOLOGY ORDERABLE S ERNESTO DIAS documented in this encounter Visit Diagnoses Diagnosis Perianal abscess- Primary Abscess of anal and rectal regions Perianal abscess Abscess of anal and rectal regions Omvunab-[id number] 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 Administered Medications Inactive Administered Medications - up to 3 most recent administrations Medication Order MAR Action Action Date Dose Rate Site ampicillin-sulbactam (UNASYN) injection 3 g, Intravenous, ONCE, 1 dose, On Thu12/21/12 at 1330, Routine, Indication for (Active or Suspected): for Skin/Skin Structure Given 12/21/2012 1:30 PM EDT 3 g fentaNYL 50 mcg/mL 5 mL multidose injection 25 mcg, Intravenous, EVERY 1 HOUR PRN, Starting on Thu12/21/12 at 1332, Until Thu12/21/12 at 1412, Pain, Routine Given 12/21/2012 2:10 PM EDT 25 mcg Given 12/21/2012 1:50 PM EDT 25 mcg Given 12/21/2012 1:45 PM EDT 50 mcg lactated ringers infusion 1,000 mL 1,000 mL, Intravenous, ONCE, 1 dose, On Thu12/21/12 at 1400 New Bag 12/21/2012 2:00 PM EDT 1,000 mLs mL/hr lidocaine-epiNEPHrine 1 %-1:100,000 injection 0-40 mL 0-40 mL, Intradermal, ONCE, 1 dose, On Thu12/21/12 at 1400, Routine Given 12/21/2012 2:00 PM EDT 10 mLs midazolam (VERSED) injection 2 mg 2 mg, Intravenous, ONCE, 1 dose, On e 12/21/12 at 1400, STAT Given 12/21/2012 2:00 PM EDT 1 mg documented in this encounter Active and Recently Administered Medications Times are shown in EDT. Scheduled Medication Order 12/19/2012 12/20/2012 12/21/2012 ampicillin-sulbactam (UNASYN) injection (CANCELED) 3 g, Intravenous, ONCE, 1 dose, On 12/21/12 at 1330, Routine, Indication for (Active or Suspected): for Skin/Skin Structure 1330 (Given - Provid er: Dionne Cabrera RN) lactated ringers infusion 1,000 mL (COMPLETED) 1,000 mL, Intravenous, ONCE, 1 dose, On Thu12/21/12 at 1400 1400 (New Bag - Prov ider: Dionne Cabrera RN) lidocaine-epiNEPHrine 1 %-1:100,000 injection 0-40 mL (COMPLETED) 0-40 mL, Intradermal, ONCE, 1 dose, On e 12/21/12 at 1400, Routine 1400 (Given - Provid er: Dionne Cabrera RN) midazolam (VERSED) injection 2 mg (COMPLETED) 2 mg, Intravenous, ONCE, 1 dose, On Thu12/21/12 at 1400, STAT 1400 (Given - Provid er: Dionne Cabrera RN) PRN Medication Order 12/19/2012 12/20/2012 12/21/2012 fentaNYL 50 mcg/mL 5 mL multidose injection (CANCELED) 25 mcg, Intravenous, EVERY 1 HOUR PRN, Starting on Thu12/21/12 at 1332, Until e 12/21/12 at 1412, Pain, Routine 1345 (Given - Provid er: Dionne Cabrera RN)1350 (Given - Provider: Dionne Cabrera RN)1410 (Given - Provider: Dionne Cabrera RN) documented in this encounter Care Teams Concrete Truck Driver Relationship Specialty Start Date End Date Helene Wilson MD [address] [place] [address] PCP - General 07/16/10 03/17/19 documented as of this encounter
--- OUTSIDE RECORDS SUMMARY | 2024-03-06 17:00 | XMS_ITS | Encounter Summary ---
Author Organization [facility] Address [facility] [place] [address] Care Team Providers Care Salvage Worker Name Role Phone Helene Wilson MD Primary Care Provider [phone] Reason for Referral * Psychiatric (Routine) - Specialty Diagnoses / Procedures Referred By Contadis t Referred To Contact Psychology Diagnoses Adjustment disorder with other symptom Lyndsey Amezcua [facility] [place] [address] Referral ID Status Reason Start Date Expiration Date V isits Requested Visits Authorized [id number] Consult, Test & Treat 08/20/2016 02/16/2017 12 12 Encounter Details Date Type Department Care Team (Latest Contact Info) Description 08/20/2016 4:30 PM EST Office Visit Psychiatry and Behavioral [facility] at [facility] [place] [address] Lyndsey Amezcua [facility] [place] [address] Adjustment disorder with other symptom; TBI (traumatic brain injury), with loss of [...] as of this encounter Progress Notes * GoldieLyndsey albarran, SEWING MACHINE BOBBIN WINDER - 08/20/2016 4:30 PM EST Problem-focused Outpatient Progress Note: TBI Encounter Date: 08/20/16 Chief Complaint: Visit for rehabilitation needs s/p head trauma Date of Injury: 2003 Vinay Dowell is a 31 y.o. male presenting for evaluation, and states [...] TBI. He hasnot had a recent TBI. Reports no change in symptoms or function since last visit, although feeling more depressed and a sense of loss overall. Identified problems for this visit: 1. Adjustment disorder with other symptom Referral to Psychology 2. TBI (traumatic brain injury), with loss of consciousness of 30 minutes or less, sequela 3. Attention and concentration deficit Allergies and Medications: No Known Allergies Current Outpatient Prescriptions on File Prior to Visit Medication Sig Dispense Refill ??? Ibuprofen 200 mg Capsule Take 200 mg by mouth daily. ??? naproxen sodium (ANAPROX) 220 mg Tablet Take 220 mg by mouth 2 times daily (with meals). No current facility-administered medications on file prior to visit. Social History: Social History Substance Use Topics ??? Smoking status: Current Every Day Smoker Packs/day: 0.50 Types: Cigarettes ??? Smokeless tobacco: Never Used ??? Alcohol use Yes Comment: occasional Subjective: Symptom checklist (in the last week) 0=none, 1-2=mild, 3-4=moderate, 5-6=severe Date 10/17 01/10 08/20 Physical symptoms headache 3 6 6 nausea 2 4 4 vomiting 0 2 0 balance problem 3 2 5 dizziness 2 4 5 visual problems 2 2 4 fatigue 2 5 6 sensitivity to light 1 1 4 sensitivity to sound / noise 1 4 4 numbness / tingling 2 3 0 pain other than headache 2 4 6 Cognitive symptoms feeling mentally foggy 2 4 6 feeling slowed down 2 4 6 difficulty concentrating 2 4 6 difficulty remembering 2 3 6 Sleep drowsiness 1 6 6 sleeping less than usual 3 3 5 sleeping more than usual 0 0 5 trouble falling asleep 1 5 6 Emotional symptoms irritability 3 5 6 sadness 1 3 3 nervousness 2 5 5 feeling more emotional 2 5 5 (n) Symptoms are worse with cognitive activity [...] and has marked difficulty with problem solving. Toward the end of the session however, he becomes tearful. Reports feeling overwhelmed and has increased difficulty problem-solving. Thoughts of feeling lost in his life, but no intent or plan for suicide, or harm to others. Assessment / Recommendations: Vinay Dowell is a 31 y.o. male who is seen for symptoms following remote TBI. He is concerned about how this history effects his current function. He has no current, active treatment. 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 In need of steady psychotherapist. He is depressed, but not acutely suicidal and is able to identify things in the future to look forward to. He understands how to reach out in case of emergency. Again discussed multi-factorial aspect of the problems he perceives and functional implications. Improvement in functional status complicated by psychosocial conditions. Discussed how a global approach to his problems would be best, vs focusing on TBI-related issues at this point. He is working parttime and continues to have more general existential issues about purpose and life goals. Would really benefit from psychotherapy. Follow up visit / return to clinic: prn Follow up visit: 25 of this 30 minute visit (>than 50%) was spent on counseling and discussion related to recovery from traumatic brain injury and rehabilitation plan as discussed above. Delma Amezcua APRN documented in this encounter Plan of Treatment Scheduled Referrals Name Type Priority Associated Diagnoses Order Schedule Referral to Psychology Outpatient Referral Routine Adjustment Disorder With Other Symptom Ordered: 08/20/2016 documented as of this encounter Visit Diagnoses Diagnosis Adjustment disorder with other symptom TBI (traumatic brain injury), with loss of consciousness of 30 minutes or less, sequela Attention and concentration deficit Attention or concentration deficit documented in this encounter Care Teams Salvage Worker Relationship Specialty Start Date End Date Helene Wilson MD [address] [place] [id number] PCP - General 07/16/10 03/17/19 documented as of this encounter
--- OUTSIDE RECORDS SUMMARY | 2024-03-06 17:00 | XMS_ITS | Encounter Summary ---
Author Organization [facility] Address [facility] [place] [address] Care Team Providers Care Healthcare Marketer Name Role Phone Helene Wilson MD Primary Care Provider [phone] Encounter Details Date Type Department Care Team (Late st Contact Info) Description 03/02/2017 10:00 AM EDT - 03/02/2017 11:00 AM EDT Surgery [place] [address] Luis E Shultz MD [facility] [place] [address] COLONOSCOPY, POLYPECTOMY, REMOVAL LESION BY SNARE (WRVU 4.57) Social History Tobacco Use Types Packs/Day Years [...] Sign Reading Time Taken Comments Blood Pressure 112/67 03/02/2017 11:00 AM EDT Pulse 51 03/02/2017 11:00 AM EDT Temperature - - Respiratory Rate 16 03/02/2017 11:00 AM EDT Oxygen Saturation 100% 03/02/2017 10:53 AM EDT Inhaled Oxygen Concentration - - Weight - - Height - - Body Mass Index - - documented in this encounter Discharge Instructions * Discharge Instructions* NorthMike nunez RN - 03/02/2017 11:00 AM EDT You may have received medication before and/or during your procedure which effects judgement and reaction time. Do not drive, operate machinery, drink alcoholic beverages, or make important decisions for 24 hours. Be careful on stairs, as you may be unsteady on your feet. You may eat a regular diet as tolerated. Do not smoke if you are alone. IV site -- slight redness or tenderness is normal. You may use a warm compress. If tenderness and redness increases or foul drainage occurs please contact your M.D. Please call [phone] before 5 pm with problems, questions or concerns. After 5pm call [phone] and ask to speak with the electromagnet crane operator air route traffic controller. Discharge instructions reviewed with patient who expresses understanding. * Attachments The following attachments cannot be sent through Care Everywhere. * COLONOSCOPY: POST-OP (CUBAN) documented in this encounter Medications at Time of Discharge Medication Sig Dispensed Refills Start Date End Date Ibuprofen 200 mg Capsule Take 200 mg by mouth daily. nitroGLYcerin 0.2% Ointment Apply 0.5 inches topically 2 times daily. 170 g 03/02/2017 04/22/2019 naproxen sodium (ANAPROX) 220 mg Tablet Take 220 mg by mouth 2 times daily (with meals). 04/22/2019 documented as of this encounter H&P Notes * Luis E Shultz MD - 03/02/2017 9:52 AM EDT Gastroenterology and Hepatology Pre-Procedure History and Physical Exam Procedure: Colonoscopy: Indication: Hematochezia, history of chronic constipation, presentation suggests rectal outlet bleeding (blood streaked stools) Patient Active Problem List Diagnosis Code ??? Ankle pain M25.579 ??? Perianal abscess K61.0 ??? Skvgfxe-br-eav K60.3 ??? TBI (traumatic brain injury) S06.9X9A ??? Attention and concentration deficit R41.840 EXAM: HEENT: Airway examined, oropharynx clear Mallampati Score: II (soft palate, uvula, fauces visible) LUNGS: Clear to auscultation HEART: Regular rate and rhythm, normal S1, S2 ABDOMEN: Normal bowel sounds, soft, non tender, non distended, A/P Proceed with the planned endoscopic procedure. ASA 2 - Patient with mild systemic disease with no functional limitations Sedation Plan: moderate (conscious sedation) Risks and benefits of the procedure explained to the patient. Consent signed. Electronically signed by: Luis E Shultz Gastroenterology Fellow [facility] Pager [phone] 03/02/2017 documented in this encounter Plan of Treatment Not on file documented as of this encounter Procedures Procedure Name Priority Date/Time Associated Diagnosis Comments SURGICAL PATHOLOGY REPORT Routine 03/02/2017 11:05 AM EDT SPECIMEN TO PATHOLOGY Routine 03/02/2017 11:05 AM EDT COLONOSCOPY Routine 03/02/2017 10:04 AM EDT COLONOSCOPY, POLYPECTOMY, REMOVAL LESION BY SNARE (WRVU 4.57) 03/02/2017 9:57 AM EDT Rectal Bleeding Per JKP, colo with C.S within 3-4 weeks ind: rectal bleeding Per Vivian G- Ok to have pts ride come at 11am when he is done with colo documented in this encounter Results * Surgical Pathology Report (03/02/2017 11:05 AM EDT) Surgical Pathology Report [id number] ?Location: 4; 08; A The signing pathologist has (i) examined the relevant preparation(s) for the specimen(s) and (ii) rendered or confirmed the diagnosis(es). . ?Surgical Pathology DIAGNOSIS Rectum, ??polypectomy: Hyperplastic polyp. CR-PX Electronically signed by: ??Jose SANCHEZ, Pat Verified: ??03/03/2017 ?Pathologist CLINICAL INFORMATION Specimen Submitted: A - 5 MM rectal polyp Clinical History: Colonoscopy for BRBPR, 5 mm rectal polyp noted incidentally Clinical Diagnosis: Same SPECIMEN PROCESSING A - Labeled/Fixative : 5 mm rectal polyp, formalin. Quantity/Size: Single, 0.4 cm. Tissue Description: Soft plaza polyp. Sections/Process ing: (T1) ??maggie [facility] 03/02/2017 11:0 5 AM EDT Luis E Shultz MD PATHOLOGY/CYTOLOGY [place] Performing Organization Address [facility] [place] [address] * Specimen to Pathology (surgical or derm) (03/02/2017 11:05 AM EDT) AP Specimen 03/02/2017 11:0 5 AM EDT 03/02/2017 11:05 AM EDT Narrative [facility] - 03/02/2017 11:05 AM EDT Specimen requisition ordered. ??Separate Pathology report to follow Luis E Shultz MD PATHOLOGY/CYTOLOGY [place] Performing Organization Address [facility] [place] [address] * COLONOSCOPY (03/02/2017 10:04 AM EDT) COLONOSCOPY [facility] Endoscopy ___ Procedure Date: 03/02/2017 10:04 AM ? Patient Name: Vinay Dowell ? Date of : 1985 ? Age: 31 ? Order #: [id number] ? Instrument Name: [id number] ? ___ Procedure: ? Colonoscopy Indications: ? Hematochezia Providers: ? Luis E Suhltz MD, Eridana G. ? Keyla Vegas MD: ?Helene Wilson MD Medicines: ? Fentanyl 200 micrograms IV, Midazolam ? 5 mg IV, Diphenhydramine 25 mg IV Complications: ? No immediate complications. ___ Procedure: ? Pre-Anesthesia Assessment: ? - Prior to the procedure, a History ? and Physical was performed, and ? patient medications and allergies ? were reviewed. The patient is ? competent. The risks and benefits of ? the procedure and the sedation ? options and risks were discussed with ? the patient. All questions were ? answered and informed consent was ? obtained. Patient identification and ? proposed procedure were verified by ? the physician and the nurse in the ? pre-procedure area in the procedure ? room. Mental Status Examination: ? alert and oriented. Airway ? Examination: normal oropharyngeal ? airway and neck mobility. Respiratory ? Examination: clear to auscultation. ? CV Examination: normal. ASA Grade ? Assessment: II - A patient with mild ? systemic disease. After reviewing the ? risks and benefits, the patient was ? deemed in satisfactory condition to ? undergo the procedure. The anesthesia ? plan was to use moderate sedation / ? analgesia (conscious sedation). ? Immediately prior to administration ? of medications, the patient was ? re-assessed for adequacy to receive ? sedatives. The heart rate, ? respiratory rate, oxygen saturations, ? blood pressure, adequacy of pulmonary ? ventilation, and response to care ? were monitored throughout the ? procedure. The physical status of the ? patient was re-assessed after the ? procedure. ? The procedure, indications, benefits, ? risks and alternatives were explained ? to the patient. Specifically ? discussed were potential ? complications including, but not ? limited to, bleeding, perforation, ? infection, missing a cancer, and ? adverse medication reactions. The ? patient was placed in the left ? lateral decubitus position, and a ? digital rectal exam was performed. ? The Colonoscope was inserted in the ? anus and under direct visualization, ? advanced to the terminal ileum. ? Careful inspection was made as the ? colonoscope was withdrawn. The ? colonoscopy was performed without ? difficulty. The patient tolerated the ? procedure well. The quality of the ? bowel preparation was excellent. ? Findings: ? The perianal exam findings include anal fissure. ? There was a skin tag which was also noted on rectal ? retroflexion exam. ? A 5 mm polyp was found in the rectum. The polyp was ? sessile. The polyp was removed with a cold snare. ? Resection and retrieval were complete. ? The terminal ileum appeared normal. ? Moderate Sedation: ? I was present during the intraservice time as ? documented by the sedation RN. Impression: ?- Source of anal pain and ? intermittent hematochezia likely ? related to anal fissure ? - One 5 mm polyp in the rectum, ? removed with a cold snare. Resected ? and retrieved. ? - The examined portion of the ileum ? was normal. Recommendation: ?- Discharge to home ? - F/u path ? - Start perianal nitroglycerin .2% ? ointment twice daily for 8 weeks ? - Encourage good daily fluid intake ? - Fruits/vegetables, avoid starches ? when possible ? - Consider benefiber 25gm daily ? - Consider stool softener Colace ? 100mg daily ? - Consider daily sitz baths ? - Avoid straining with BMs ? - Consider squatty potty type device ? to reduce straining with bowel ? movements ? - F/u with PCP, if symptoms persist ? consider referral to GI clinic as ? part of follow-up ? Attending Participation: ? I personally performed the entire procedure. ? Luis E Shultz MD 03/02/2017 11:19:46 AM Number of Addenda: 0 Note Initiated On: 03/02/2017 10:04 AM PROVATION 03/02/2017 10:0 4 AM EDT Helene Wilson MD GENERAL SURGICAL ORD ERABLES PROVATION documented in this encounter Visit Diagnoses Not on filedocumented in this encounter Administered Medications Inactive Administered Medications - up to 3 most recent administrations Medication Order MAR Action Action Date Dose Rate Site diphenhydrAMINE (BENADRYL) injection ONCE PRN, Starting on Thu03/02/17 at 1022, Until Thu03/02/17 at 1342, Intra-Operative (Intra-Procedure), Routine Given 03/02/2017 10:22 AM EDT 25 mg Right Arm fentaNYL 50 mcg/mL multi-dose injection ONCE PRN, Starting on Thu03/02/17 at 0959, Until Thu03/02/17 at 1342, Intra-Operative (Intra-Procedure), Routine Given 03/02/2017 10:19 AM EDT 50 mcg Right Arm Given 03/02/2017 10:05 AM EDT 50 mcg R ight Arm Given 03/02/2017 10:02 AM EDT 50 mcg R ight Arm midazolam (PF) (VERSED) 1 mg/mL multi-dose injection ONCE PRN, Starting on Thu03/02/17 at 0959, Until Thu03/02/17 at 1342, Intra-Operative (Intra-Procedure), Routine Given 03/02/2017 10:19 AM EDT 1 mg Righ t Arm Given 03/02/2017 10:11 AM EDT 1 mg R ight Arm Given 03/02/2017 10:05 AM EDT 1 mg R ight Arm documented in this encounter Active and Recently Administered Medications Times are shown in EDT. PRN Medication Order 02/28/2017 03/01/2017 03/02/2017 diphenhydrAMINE (BENADRYL) injection (CANCELED) ONCE PRN, Starting on Thu03/02/17 at 1022, Until Thu03/02/17 at 1342, Intra-Operative (Intra-Procedure), Routine 1022 (Given - Provid er: Abi Vegas RN) fentaNYL 50 mcg/mL multi-dose injection (CANCELED) ONCE PRN, Starting on Thu03/02/17 at 0959, Until Thu03/02/17 at 1342, Intra-Operative (Intra-Procedure), Routine 0959 (Given - Provid er: Abi Vegas RN)1002 (Given - Provider: Abi Vegas RN)1005 (Given - Provider: Abi Vegas RN)1019 (Given - Provider: Abi Vegas RN) midazolam (PF) (VERSED) 1 mg/mL multi-dose injection (CANCELED) ONCE PRN, Starting on Thu03/02/17 at 0959, Until Thu03/02/17 at 1342, Intra-Operative (Intra-Procedure), Routine 0959 (Given - Provid er: Abi Vegas RN)1002 (Given - Provider: Abi Vegas RN)1005 (Given - Provider: Abi Vegas RN)1011 (Given - Provider: Abi Vegas RN)1019 (Given - Provider: Abi Vegas RN) documented in this encounter Care Teams Healthcare Marketer Relationship Specialty Start Date End Date Helene Wilson MD [address] [place] [address] PCP - General 07/16/10 03/17/19 documented as of this encounter
--- OUTSIDE RECORDS SUMMARY | 2024-03-06 17:00 | XMS_ITS | Encounter Summary ---
[place] [address] Care Team Providers Care Hospital Nurse Liaison Name Role Phone Lizette Greco LINUS Primary Care Provider [phone] Reason for Visit * Reason Onset Date Comments Other 07/01/2019 Questions relate d to recovery Encounter Details Date Type Department Care Team (Late st Contact Info) Description 07/01/2019 [place] [phone] Chayito Hernandez RN Other (Questions related to recovery) Social History Tobacco Use Types Packs/Day Years [...] encounter Miscellaneous Notes * Telephone Encounter - Chayito Hernandez RN - 07/04/2019 1:24 PM EST Spoke with patient and reviewed provider guidance. Thank you for feedback. * Telephone Encounter - Chayito Hernandez RN - 07/04/2019 10:53 AM EST Left generic message on home phone. Cell mailbox full. Need to review provider guidance. Thanks. * Telephone Encounter - Chayito Hernandez RN - 07/01/2019 4:09 PM EST Wondering if will need to be on crutches after surgery? What recovery expectations? Will he need PT? 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 Thanks for guidance as he may need to reschedule based on guidance [phone] documented in this encounter Plan of Treatment Not on file documented as of this encounter Visit Diagnoses Not on filedocumented in this encounter Care Teams Hospital Nurse Liaison Relationship Specialty Start Date End Date Lizette Greco APRN [address] [place] [address] PCP - General Family Medicine 03/18/19 documented as of this encounter
--- OUTSIDE RECORDS SUMMARY | 2024-03-06 17:00 | XMS_ITS | Encounter Summary ---
Author Organization [facility] Address [facility] [place] [address] Care Team Providers Care Hog Cooler Name Role Phone Angus Lizette BARRIGA Primary Care Provider [phone] Reason for Visit * Reason Comments Right Ankle Fracture ORIF 05/24/1998 * Consultation (Routine) - Specialty Diagnoses / Procedures Referred By Lise ibarra Referred To Contact Orthopaedics Diagnoses presence of rtained hardware, right ankle Jose Juan Mcarthur PA [address] [place] [address] [facility] [address] [place] [phone] Referral ID Status Reason Start Date Expiration Date V isits Requested Visits Authorized [id number] Consult, Test & Treat Connection Center 03/18/2019 03/17/2020 6 6 Encounter Details Date Type Department Care Team (Late st Contact Info) Description 04/22/2019 4:00 PM EDT [place] [address] Sara Nunez MD [facility] [place] [address] Complication of internal orthopedic device, initial encounter [...] - - Weight 90.7 kg (200 lb) 04/22/2019 4:34 PM EDT Height 188 cm (6' 2) 04/22/2019 4:34 PM EDT Body Mass Index 25.68 04/22/2019 4:34 PM EDT documented in this encounter Progress Notes * Sara Nunez MD - 04/22/2019 4:00 PM EDT Chief complaint: Right ankle pain History of Present Illness: Patient is a 33-year-old gentleman, 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 He is status post open reduction internal [...] showing prominent K wire in this region. He is inquiring whether or not his hardware can be removed. He also today complains of occasional pain overlying the peroneal tendons though this is a new pain and is only been present for couple weeks. Past medical history: Includes open reduction internal fixation left talus fracture, ORIF right ankle fracture. Otherwise noncontributory Physical exam: Patient is in no acute [...] is noactive subluxation of the peroneal tendons On motor exam, there is 5/5 strength dorsiflexion, plantarflexion, inversion, eversion, EHL, FHL Sensation is intact to light touch in the sural, saphenous, deep peroneal, superficial peroneal, and tibial nerve distributions Toes are warm and well perfused with 2+ palpable DP and PT pulses Imaging: Weightbearing views of the right ankle [...] os trigonum noted. No significant malalignment noted Impression: - Status post open reduction internal fixation right ankle fracture, 20+ years ago -Status post open reduction internal fixation left talar neck fracture, 20+ years ago -Symptom metacarpal right ankle Plan: - I reviewed the above diagnoses [...] to cut it flush with the bone. He does have some mild peroneal tendon symptoms of these are relatively new and not consistent. I have advised that we monitor for progression of symptoms rather than move forward with any peroneal intervention at this point time -Risks and benefits of operative intervention were [...] procedure: Removal of K wire Right ankle documented in this encounter Plan of Treatment Not on file documented as of this encounter Procedures Procedure Name Priority Date/Time Associated Diagnosis Comments REMOVAL OF IMPLANT, DEEP Routine 04/22/2019 6:09 PM EDT documented in this encounter Visit Diagnoses Diagnosis Complication of internal orthopedic device, initial encounter documented in this encounter Care Teams Hog Cooler Relationship Specialty Start Date End Date Lizette Greco APRN [address] [place] [address] PCP - General Family Medicine 03/18/19 documented as of this encounter
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
--- OUTSIDE RECORDS SUMMARY | 2024-03-06 17:00 | XMS_ITS | Encounter Summary ---
Author Organization [facility] Address [facility] [place] [address] Care Team Providers Care Payment Processor Name Role Phone Helene Wilson MD Primary Care Provider [phone] Encounter Details Date Type Department Care Team (Late st Contact Info) Description 03/10/2016 2:15 PM EDT Office Visit [place] [address] Sandra Borrego, OT [facility] PHYSICAL MEDICINE & [place] [address] Attention and concentration deficit Social History Tobacco [...] Progress Notes * Sandra Borrego, OT - 03/10/2016 2:15 PM EDT OCCUPATIONAL THERAPY TREATMENT NOTE REFERRAL SOURCE: Fredrick Arreguin DIAGNOSIS: 1. Attention and concentration deficit NEXT MD FOLLOW UP: 01/11/16 VISIT NUMBER: 4 TOTAL TREATMENT TIME: 60 minutes TIMED CODE TREATMENT TIME: Evaluation 60 minutes HISTORY: Vinay Dowell is a 30 [...] and personality: Appropriate. Specific mental functions The [place] Cognitive Assessment was desinged as a rapid screening instrument for mild cognitive Function. It assessed different cognitive domains: attention and concentration, executive function, memory, language, visuoconstructional skills, conceptual thinking, calculations, and orientation. Subtest Score Date: Visuospatial / executive 4/5 Naming 3/3 Attention reading digit spans 2/2 Attention Vigilance 08/24 Attention serial 7 subtraction 3/3 Language sentence [...] Equipment/Environment Level of assistance Repetitions/ Time Response Patient re-educated on internal and external memory strategies Informational handout provided on internal and external strategies for improving memory Facilitated skilled discussion Patient initiallyunable to recall having previously received handout and previous education on memory strategies. With visual and verbal cues, patient was able to recall 2 strategies. After formal re-education on memory strategies and additional handout was provided, patient verbalized understanding of 3 internal and 3 external memory aids. Reviewed home exercise program: apply external memory aids of writing information down, organizing/putting items in same place, and developing routines Apply internal memory strategies of decreasing stressors, getting appropriate amount of sleep, rehearsal, visualizing, chunking, and categorizing Record triggers for changes in mood; record examples of when patient forgets information, apply strategies for managing anger Quiet environment Direct verbal cues for instruction Patient reported limited carryover since last session. Patient agreed to apply strategies between visits and record triggers for changes in mood/ instances of increased irritability Patient education on community resources Quiet environment, informational handouts Facilitated skilled discussion Patient verbalized interest in [employer] and agreed to use handout provided to contact local class regarding participation Patient verbalized understanding of how to access [place] [employer] for support groups and other resources PSFS PSFS Direct verbal cues for instruction Please see above for results. Patient reports improvedfunction overall per the PSFS ASSESSMENT: Vinay Dowell presents with reports of [...] efficiency, accuracy, and independence with IADL performance. penitentiary Goals (to be met by discharge): Date Goal Met: Vinay oDwell will initiate use of strategies for 80-100% accuracy with simulated, complex IADL task such as task list completion with >/= 5 items Goal Status: In progress Patient will demonstrate significantly improved functional performance as measured by >/= a 2 point improvement from initial 5/10 on the PSFS Goal Status: In progress [...] deficit documented in this encounter Care Teams Payment Processor Relationship Specialty Start Date End Date Helene Wilson MD [address] [place] [address] PCP - General 07/16/10 03/17/19 documented as of this encounter
--- OUTSIDE RECORDS SUMMARY | 2024-03-06 17:00 | XMS_ITS | Encounter Summary ---
Author Organization [facility] Address [facility] [place] [address] Care Team Providers Care Pin Or Clip Fastener Name Role Phone Lizette Greco LINUS Primary Care Provider [phone] Encounter Details Date Type Department Care Team (Late st Contact Info) Description 04/01/2019 Orders Only Orthopaedics at [facility] [place] [address] Sara Nunez [place] [address] History of open reduction and internal fixation (ORIF) procedure; Post-traumatic osteoarthritis of right ankle; S/P hardware removal Social History Tobacco Use [...] as of this encounter Results * XR Ankle Min 3 views Right (Generic) (04/22/2019 4:55 PM EDT) Anatomical Region Laterality Modality Ankle Right Digital Radiogra phy Impressions 04/22/2019 5:23 PM EDT 1. ??Healed bimalleolar fracture 2. ??No hardware complications 3. ??Congruent ankle mortise with preserved joint spaces. 4. ??Minimal soft tissue swelling around the fibular fixation pin head at lateral malleolus. Thank you for letting us participate in the care of this patient. For questions regarding this report, please contact the number below. ? Electronically signed by: Bambi Romero [facility] ([phone]), at 04/22/2019 5:23 PM Narrative 04/22/2019 5:23 PM EDT EXAMINATION: XR ANKLE MIN 3 VIEWS RIGHT (GENERIC), XR FOOT MIN 3 VIEWS RIGHT (GENERIC) CLINICAL HISTORY: right ankle ORIF 05.24.98, post traumatic osteoarthrits ? HW removal, , ??entered by ordering service TECHNIQUE: Right ankle, ??3 views Right foot, 3 views COMPARISON: May 2018. FINDINGS: Bones ORIF of bimalleolar fracture. All fracture lines are obliterated. No radiolucency surrounding fixation pins. Navicular bone-prominent accessory navicular bone. Pes cavus. Joints Tibiotalar joint-small ankle effusion. Relative preserved joint spaces. Subtalar joints-preserved joint spaces. Lisfranc joint normal Soft tissues Minimal soft tissue swelling around the head of the fibula pin. No soft tissue air. Procedure Note Bambi Romero MD - 04/22/2019 EXAMINATION: XR ANKLE MIN 3 VIEWS RIGHT (GENERIC), XR FOOT MIN 3 VIEWSRIGHT (GENERIC) CLINICAL HISTORY: right ankle ORIF 05.24.98, post traumatic osteoarthrits? HW removal, , entered by ordering service TECHNIQUE: Right ankle, 3 views Right foot, 3 views COMPARISON: May 2018. FINDINGS: Bones ORIF of bimalleolar fracture. All fracture lines are obliterated. No radiolucency surrounding fixation pins. Navicular bone-prominent accessory navicular bone. Pes cavus. Joints Tibiotalar joint-small ankle effusion. Relative preserved joint spaces. Subtalar joints-preserved joint spaces. Lisfranc joint normal Soft tissues Minimal soft tissue swelling around the head of the fibula pin. No softtissue air. IMPRESSION 1. Healed bimalleolar fracture 2. No hardware complications 3. Congruent ankle mortise with preserved joint spaces. 4. Minimal soft tissue swelling around the fibular fixation pin head atlateral malleolus. Thank you for letting us participate in the care of this patient. Forquestions regarding this report, please contact the number below. Mauri Oro MD IMG DX ORDERABLES documented in this encounter Visit Diagnoses Diagnosis History of open reduction and internal fixation (ORIF) procedure Post-traumatic osteoarthritis of right ankle S/P hardware removal History of open reduction and internal fixation (ORIF) procedure Post-traumatic osteoarthritis of right ankle S/P hardware removal Pain of right lower extremity documented in this encounter Care Teams Pin Or Clip Fastener Relationship Specialty Start Date End Date Lizette Greco APRN [address] [place] [address] PCP - General Family Medicine 03/18/19 documented as of this encounter
--- OUTSIDE RECORDS SUMMARY | 2024-03-06 17:00 | XMS_ITS | Encounter Summary ---
Author Organization [facility] Address [facility] [place] [address] Care Team Providers Care Recruiter Coordinator Name Role Phone Helene Wilson MD Primary Care Provider [phone] Encounter Details Date Type Department Care Team (Late st Contact Info) Description 06/12/2011 6:00 PM EDT - 06/12/2011 11:59 PM EDT Hospital Encounter XRay at [address] [place] [address] Cervicalgia Social History Tobacco Use Types Packs/Day Years [...] Name Priority Date/Time Associated Diagnosis Comments XR THORACIC SPINE 2 VIEWS Routine 06/12/2011 5:59 PM EDT Cervicalgia documented in this encounter [...] documented in this encounter Visit Diagnoses Diagnosis Cervicalgia documented in this encounter Care Teams Recruiter Coordinator Relationship Specialty Start Date End Date Helene Wilson MD [address] [place] [id number] PCP - General 07/16/10 03/17/19 documented as of this encounter
--- OUTSIDE RECORDS SUMMARY | 2024-03-06 17:00 | XMS_ITS | Encounter Summary ---
Author Organization [facility] [place] [address] Care Team Providers Care Director Targeted Marketing Name Role Phone Helene Wilson MD Primary Care Provider [phone] Reason for Visit * Reason Onset Date Comments Pre Procedure Call 06/08/2017 Encounter Details Date Type Department Care Team (Late st Contact Info) Description 06/08/2017 [place] [address] Moses Bernal MD [facility] [place] [address] Pre Procedure Call Social History Tobacco Use Types Packs/Day Years [...] encounter Miscellaneous Notes * Telephone Encounter - Kuldeep Zuleta - 06/08/2017 3:48 PM EDT Mr. Dowell is calling to schedule surgery. Please call him back at [phone] He is hoping to skip the clinical appointments, he said he was told by Dr. Bernal he wouldn't need them and to just call and schedule right ankle hardware removal. He is looking to have the surgery the soonest available. documented in this encounter Plan of Treatment Not on file documented as of this encounter Visit Diagnoses Not on filedocumented in this encounter Care Teams Director Targeted Marketing Relationship Specialty Start Date End Date Helene Wilson MD [address] [place] [address] PCP - General 07/16/10 03/17/19 documented as of this encounter
--- OUTSIDE RECORDS SUMMARY | 2024-03-06 17:00 | XMS_ITS | Encounter Summary ---
Author Organization [facility] [place] [address] Care Team Providers Care Certified Orthotist Name Role Phone Helene Wilson MD Primary Care Provider [phone] Reason for Visit * Reason Comments Follow-up Encounter Details Date Type Department Care Team (Latest Contact Info) Description 01/11/2016 11:00 AM EDT Office Visit General Surgery at [facility] [place] [address] Jos Amezcua, CONVEYOR [employer]T OPERATOR [facility] [place] [id number] TBI (traumatic brain injury), with loss of [...] of this encounter Progress Notes * Jos Amezcua APRN - 01/11/2016 11:23 AM EDT Division of Trauma and Acute Surgical Care Problem-focused Outpatient Progress Note: Rehabilitation Encounter Date: 01/11/16 Chief Complaint: Visit for rehabilitation needs s/p head trauma Date of Injury: 2002 Vinay Colon Delmer is a 30 y.o. male presenting for [...] change in symptoms or function since last visit Identified problems for this visit: 1. 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 Attention and concentration deficit Allergies and Medications: [...] ??? Smokeless tobacco: Never Used ??? Alcohol use: Yes Comment: occasional Subjective: Symptom checklist (in the last week) 0=none, 1-2=mild, 3-4=moderate, 5-6=severe Date 10/17 01/10 Physical symptoms headache 3 6 nausea 2 4 vomiting 0 2 balance problem 3 2 dizziness 2 4 visual problems 2 2 fatigue 2 5 sensitivity to light 1 1 sensitivity to sound / noise 1 4 numbness / tingling 2 3 pain other than headache 2 4 Cognitive symptoms feeling mentally foggy 2 4 feeling slowed down 2 4 difficulty concentrating 2 4 difficulty remembering 2 3 Sleep drowsiness 1 6 sleeping less than usual 3 3 sleeping more than usual 0 0 trouble falling asleep 1 5 Emotional symptoms irritability 3 5 sadness 1 3 nervousness 2 5 feeling more emotional 2 5 (n) Symptoms are worse with cognitive [...] no current, active treatment. Discussed short and prison goals, which he has difficulty with. We reviewed the prevalence, etiology and natural recovery of post TBI symptoms, especially headache, vision changes, fatigue, irritability and dizziness. We have discussed how to manage symptoms withgood nutrition, hydration, sleep hygiene, routine, control of stimulation in the environment and removal of additional irritants such as alcohol. Discussed the importance of stress management and risk for poor judgment when making demands for performance from the symptomatic brain. Encouraged safe,light physical activity. Again discussed multi-factorial aspect of the problems he perceives and functional implications. Improvement in functional status complicated by psychosocial conditions. Discussed how a global approach to his problems would be best, vs focusing on TBI-related issues at this point. Discussed possibility of MRI or additional endocrine labs if sx persist, but that there may be a low likelihood that imaging in particular would change treatment. Follow up visit / return to clinic: prn Follow up visit: 25 of this 30 minute visit (>than 50%) was spent on counseling and discussion related to recovery from traumatic brain injury and rehabilitation plan as discussed above. Delma Amezcua APRN, CBIS Trauma Division, Section of Trauma and Acute Care Surgery Department of General Surgery, [facility] CC: HELENE WILSON MD documented in this encounter Miscellaneous Notes * Addendum Note - Jos Amezcua APRN - 03/11/2016 12:07 PM EDTAddended by: JOS AMEZCUA on: 03/11/2016 12:07 PM Modules accepted: Level of Service documented in this encounter Plan of Treatment Not on file documented as of this encounter Visit Diagnoses Diagnosis TBI (traumatic brain injury), with loss of consciousness of 30 minutes or less, sequela Attention and concentration deficit Attention or concentration deficit documented in this encounter Care Teams Certified Orthotist Relationship Specialty Start Date End Date Helene Wilson MD [address] [place] [id number] PCP - General 07/16/10 03/17/19 documented as of this encounter
--- OUTSIDE RECORDS SUMMARY | 2024-03-06 17:00 | XMS_ITS | Encounter Summary ---
Author Organization [facility] Address [facility] [place] [address] Care Team Providers Care Tank Car Cleaner Name Role Phone AngusLizette LINUS Primary Care Provider [phone] Encounter Details Date Type Department Care Team (Latest Contact Info) Description 04/22/2019 4:42 PM EDT - 04/22/2019 11:59 PM EDT Hospital Encounter XRay at [address] [place] [address] Mauri Oro MD [facility] [place] [address] History of open reduction and internal fixation (ORIF) procedure; Post-traumatic osteoarthritis of right ankle; S/P hardware removal; Pain of right lower extremity Discharge Disposition: Home Social History Tobacco Use [...] 08/04/2019 08/19/2019 documented as of this encounter Plan of Treatment Not on file documented as of this encounter Procedures Procedure Name Priority Date/Time Associated Diagnosis Comments XR FOOT MIN 3 VIEWS RIGHT Routine 04/22/2019 4:55 PM EDT Pain of right lower extremity XR ANKLE MIN 3 VIEWS RIGHT Routine 04/22/2019 4:55 PM EDT History of open reduction and internal fixation (ORIF) procedure Post-traumatic osteoarthritis of right ankle S/P hardware removal documented in this encounter Results * XR Foot Min 3 views Right (Generic) (04/22/2019 4:55 PM EDT) Anatomical Region Laterality Modality Foot Right Digital Radiogra phy Impressions 04/22/2019 5:23 PM EDT 1. ??Healed bimalleolar fracture 2. ??No hardware complications 3. ??Congruent ankle mortise with preserved joint spaces. 4. ??Minimal soft tissue swelling around the fibular fixation pin head at lateral malleolus. Thank you for letting us participate in the care of this patient. For questions regarding this report, please contact the number below. ? Narrative 04/22/2019 5:23 PM EDT EXAMINATION: XR ANKLE MIN 3 VIEWS RIGHT (GENERIC), XR FOOT MIN 3 VIEWS RIGHT (GENERIC) CLINICAL HISTORY: right ankle ORIF ., post traumatic osteoarthrits ? HW removal, , [...] this report, please contact the number below. Sara Nunez MD IMG DX ORDERABLES * XR Ankle Min 3 views Right [...] report, please contact the number below. ? Narrative 04/22/2019 5:23 PM EDT EXAMINATION: XR [...] extremity documented in this encounter Care Teams Tank Car Cleaner Relationship Specialty Start Date End Date Lizette Greco APRN [address] [place] [address] PCP - General Family Medicine 03/18/19 documented as of this encounter
--- OUTSIDE RECORDS SUMMARY | 2024-03-06 17:00 | XMS_ITS | Encounter Summary ---
Author Organization Replaced By [facility] [place] [address] Care Team Providers Care [employer] Name Role Phone Helene Wilson MD Primary Care Provider [phone] Encounter Details Date Type Department Care Team (Late st Contact Info) Description 03/26/2016 3:00 PM EDT Office Visit [place] [address] Sandra Borrego, OT [facility] PHYSICAL MEDICINE & [place] [address] TBI (traumatic brain injury), with loss of [...] Progress Notes * Sandra Borrego, OT - 03/26/2016 3:00 PM EDT OCCUPATIONAL THERAPY TREATMENT NOTE REFERRAL SOURCE: Fredrick Arreguin DIAGNOSIS: 1. 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 Attention and concentration deficit NEXT MD FOLLOW UP: 01/11/16 VISIT NUMBER: 5 TOTAL TREATMENT TIME: 65 minutes TIMED CODE [...] and personality: Appropriate. Specific mental functions The [place] Cognitive Assessment was desinged as a rapid [...] Equipment/Environment Level of assistance Repetitions/ Time Response Facilitated skilled discussion on home exercise [...] environment, informational handouts Facilitated skilled discussion Last session: Patient verbalized interest in [employer] and agreed to use handout provided to contact local class regarding participation Patient verbalized understanding of how to access [employer] for support groups and other resources Patient reports that he has not followed up with the above mentioned community resources at this time Completed TEA Quiet environment Direct verbal cues for instruction Please see below for results 03/26/16: Administered the following subtests of the Test of Everyday Attention (TEA). The TEA is a standardized, normed assessment of various forms of attention. 1) Map Search: 77 approximate percentile equivalent: 50% for one minute approximate percentile equivalent: 50% for two minutes 2) Elevator Countin/ (normal) 3) Elevator Counting with Distraction: 03/02 [...] 8) Lottery: 06/02 approximate percentile equivalent: 75% ASSESSMENT: Vinay Dowell presents with reports of [...] efficiency, accuracy, and independence with IADL performance. prison Goals (to be met by discharge): Date [...] problem solving and compensatory strategies (X) Vinay Dwoell participated in the evaluation, collaborated on treatment goals, and agrees to the treatment plan. documented in this encounter Plan of Treatment Not on file documented as of this encounter Visit Diagnoses Diagnosis TBI (traumatic brain injury), with loss of consciousness of 30 minutes or less, sequela Attention and concentration deficit Attention or concentration deficit documented in this encounter Care Teams [employer] Relationship Specialty Start Date End Date Helene Wilson MD [address] [place] [address] PCP - General 07/16/10 03/17/19 documented as of this encounter
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
--- OUTSIDE RECORDS SUMMARY | 2024-03-06 17:00 | XMS_ITS | Encounter Summary ---
Author Organization [facility] Address [facility] [place] [address] Care Team Providers Care Cement Based Materials Pump Tender Name Role Phone Helene Wilson MD Primary Care Provider [phone] Encounter Details Date Type Department Care Team (Latest Contact Info) Description 03/02/2017 8:53 AM EDT - 03/02/2017 11:42 AM EDT Hospital En[place] [address] Luis E Shultz MD [facility] [place] [address] Discharge Disposition: Home Social History Tobacco Use [...] this encounter Discharge Instructions * Discharge Instructions* Mike North RN - 03/02/2017 11:00 AM EDT You [...] occurs please contact your M.D. Please call [phone] before 5 pm with problems, questions or concerns. After 5pm call [phone] and ask to speak with the water meter reader trail construction worker. Discharge instructions reviewed with patient who expresses understanding. * Attachments The following attachments cannot be sent through Care Everywhere. * COLONOSCOPY: POST-OP (IRANIAN) documented in this encounter Medications at Time [...] pain M25.579 ??? Perianal abscess K61.0 ??? Afkawuw-di-pui K60.3 ??? TBI (traumatic brain injury) S06.9X9A [...] signed by: Luis E Shultz Gastroenterology Fellow [facility] Pager [phone] 03/02/2017 documented in this encounter Plan of [...] (03/02/2017 11:05 AM EDT) Surgical Pathology Report [id number] ?Location: ; [facility]; The signing pathologist has (i) examined the relevant preparation(s) for the specimen(s) and (ii) rendered or confirmed the diagnosis(es). . ?Surgical Pathology DIAGNOSIS Rectum, ??polypectomy: Hyperplastic polyp. [id number] Electronically signed by: ??Pat Garcia MD Verified: ??03/03/2017 ?Pathologist CLINICAL INFORMATION Specimen Submitted: A - 5 MM rectal polyp Clinical History: Colonoscopy for BRBPR, 5 mm rectal polyp noted incidentally Clinical Diagnosis: Same SPECIMEN PROCESSING A - Labeled/Fixative : 5 mm rectal polyp, formalin. Quantity/Size: Single, 0.4 cm. Tissue Description: Soft plaza polyp. Sections/Process ing: (T1) ??maggie [facility] 03/02/2017 11:0 5 AM EDT Luis E Shultz MD PATHOLOGY/CYTOLOGY [place] Performing Organization Address [facility] [place] [address] * Specimen to Pathology (surgical or derm) (03/02/2017 11:05 AM EDT) AP Specimen 03/02/2017 11:0 5 AM EDT 03/02/2017 11:05 AM EDT Narrative [facility] - 03/02/2017 11:05 AM EDT Specimen requisition ordered. ??Separate Pathology report to follow Luis E Shultz MD PATHOLOGY/CYTOLOGY [place] Performing Organization Address [facility] [place] [address] * COLONOSCOPY (03/02/2017 10:04 AM EDT) COLONOSCOPY [facility] Endoscopy ___ Procedure Date: 03/02/2017 10:04 AM ? Patient Name: Vinay Dowell ? Date of : 1985 ? Age: 31 ? Order #: [id number] ? Instrument Name: [id number] ? ___ Procedure: ? Colonoscopy Indications: ? Hematochezia Providers: ? Luis E Shultz MD, Abi Moore ? Keyla Vegas MD: ?Helene Wilson MD [...] Diagnoses Not on filedocumented in this encounter Active and Recently Administered [...] RN) documented in this encounter Care Teams Cement Based Materials Pump Tender Relationship Specialty Start Date End Date Helene Wilson MD [address] [place] [address] PCP - General 07/16/10 03/17/19 documented as of this encounter
--- OUTSIDE RECORDS SUMMARY | 2024-03-06 17:00 | XMS_ITS | Encounter Summary ---
Author Organization [facility] [place] [address] Care Team Providers Care World Designer Name Role Phone Helene Wilson MD Primary Care Provider [phone] Reason for Visit * Reason Onset Date Comments Other 01/05/2015 Encounter Details Date Type Department Care Team (Late st Contact Info) Description 01/05/2015 [place] [address] [facility] [place] [place] [address] Other Social History Tobacco Use Types Packs/Day Years [...] encounter Miscellaneous Notes * Telephone Encounter - Ye Braswell MD - 01/05/2015 2:00 PM EDT I called the patient back and he was not available; I left a message. I stated that the zonisamide was recommended as prophylaxis for migraine management however if he doesn't want to take this he doesn't need to. The appointment in 01/29 was to follow up on his migraine management and check for any significant change. This does not need to be kept if the patient's headaches have improved or he is getting adequate management elsewhere. * Telephone Encounter - Susana Sandhu - 01/05/2015 1:09 PM EDT Patient called to state that he has not taken the zonasimide per pt preference and was unsure of whether or not his appointment 01/29 was still necessary. Please call and advise. documented in this encounter Plan of Treatment Not on file documented as of this encounter Visit Diagnoses Not on filedocumented in this encounter Care Teams World Designer Relationship Specialty Start Date End Date Helene Wilson MD [address] [place] [address] PCP - General 07/16/10 03/17/19 documented as of this encounter
--- OUTSIDE RECORDS SUMMARY | 2024-03-06 17:00 | XMS_ITS | Encounter Summary ---
[place] [address] Care Team Providers Care Poultry Scalder Name Role Phone Helene Wilson MD Primary Care Provider [phone] Encounter Details Date Type Department Care Team (Late st Contact Info) Description 02/11/2013 Telephone [place] [phone] Tori Siddiqi PA [address] [place] [address] Social History Tobacco Use Types Packs/Day Years Used Date Smoking Tobacco: Every Day Cigarettes Sex and Gender Information Value Date Recorded Sex Assigned at Not on file Gender Identity Not on file Sexual Orientation Not on file documented as of this encounter Miscellaneous Notes * Telephone Encounter - Tori Siddiqi PA - 02/11/2013 10:21 AM EDT Called patient at home number several times this morning to discuss plans for surgery, but only gota busy signal each time. I called 3 times, about 15 minutes apart. Will ask our litigation legal secretary to try again later this morning. Tori Siddiqi PA-C Division of Colon & Rectal Surgery [facility] [phone] documented in this encounter Plan of Treatment Not on file documented as of this encounter Visit Diagnoses Not on filedocumented in this encounter Care Teams Poultry Scalder Relationship Specialty Start Date End Date Helene Wilson MD [address] [place] [address] PCP - General 07/16/10 03/17/19 documented as of this encounter
--- OUTSIDE RECORDS SUMMARY | 2024-03-06 17:00 | XMS_ITS | Encounter Summary ---
Author Organization [facility] Address [facility] [place] [address] Care Team Providers Care Oil Heat Technician Name Role Phone Helene Wilson MD Primary Care Provider [phone] Reason for Visit * Reason Onset Date Comments Pre Procedure Call 07/04/2016 Encounter Details Date Type Department Care Team (Late st Contact Info) Description 07/04/2016 Telephone [place] [address] Moses Bernal MD [facility] [place] [address] Pre Procedure Call Social History Tobacco Use [...] encounter Miscellaneous Notes * Telephone Encounter - Helene Real - 07/04/2016 11:20 AM EST I called and left a message for patient to call [phone] directly and schedule surgery with Dr. Bernal.. documented in this encounter Plan of Treatment Not on file documented as of this encounter Visit Diagnoses Not on filedocumented in this encounter Care Teams Oil Heat Technician Relationship Specialty Start Date End Date Helene Wilson MD [address] [place] [address] PCP - General 07/16/10 03/17/19 documented as of this encounter
--- OUTSIDE RECORDS SUMMARY | 2024-03-06 17:00 | XMS_ITS | Encounter Summary ---
Author Organization [facility] [place] [address] Care Team Providers Care Health And Safety Representative Name Role Phone Lizette Greco APRN Primary Care Provider [phone] Encounter Details Date Type Department Care Team (Late st Contact Info) Description 05/26/2019 Telephone Orthopaedics at [facility] [place] [phone] Sara Nunez MD [facility] [place] [address] Social History Tobacco Use Types Packs/Day Years [...] encounter Miscellaneous Notes * Telephone Encounter - Santo Davis - 05/26/2019 10:56 AM EDT Lm for DOMÍNGUEZ documented in this encounter Plan of Treatment Not on file documented as of this encounter Visit Diagnoses Not on filedocumented in this encounter Care Teams Health And Safety Representative Relationship Specialty Start Date End Date Lizette Greco APRN [address] [place] [address] PCP - General Family Medicine 03/18/19 documented as of this encounter
--- OUTSIDE RECORDS SUMMARY | 2024-03-06 17:00 | XMS_ITS | Encounter Summary ---
Author Organization [facility] Address [facility] [place] [address] Care Team Providers Care Medical Leader Name Role Phone Lizette Greco LINUS Primary Care Provider [phone] Encounter Details Date Type Department Care Team (Late st Contact Info) Description 04/21/2019 Orders Only Orthopaedics at [place] [address] Sara Nunez [place] [facility] [place] [address] Pain of right lower extremity Social History Tobacco Use Types Packs/Day Years [...] as of this encounter Results * XR Foot Min [...] VIEWSRIGHT (GENERIC) CLINICAL HISTORY: right ankle ORIF ., post traumatic osteoarthrits? HW removal, , entered [...] this report, please contact the number below. Electronically signed by: DEVI Mora [facility]([phone]), at 04/22/2019 5:23 PM Sara Nunez MD IMG DX ORDERABLES documented in this encounter Visit Diagnoses Diagnosis Pain of right lower extremity History of open reduction and internal fixation (ORIF) procedure Post-traumatic osteoarthritis of right ankle S/P hardware removal Pain of right lower extremity documented in this encounter Care Teams Medical Leader Relationship Specialty Start Date End Date Lizette Greco APRN [address] [place] [address] PCP - General Family Medicine 03/18/19 documented as of this encounter
--- OUTSIDE RECORDS SUMMARY | 2024-03-06 17:00 | XMS_ITS | Encounter Summary ---
[place] [address] Care Team Providers Care Metal Sorter Name Role Phone Helene Wilson MD Primary Care Provider [phone] Encounter Details Date Type Department Care Team (Late st Contact Info) Description 12/29/2012 Telephone [place] [address] Justine Webb RN Social History Tobacco Use Types Packs/Day Years Used Date Smoking Tobacco: Every Day Cigarettes Sex and Gender Information Value Date Recorded Sex Assigned at Not on file Gender Identity Not on file Sexual Orientation Not on file documented as of this encounter Miscellaneous Notes * Telephone Encounter - Justine Christensen RN - 12/29/2012 4:37 PM EDT Vinay called to say he missed his appointment with Tori; he plans to reschedule. We reviewed his discharge instructions and the follow up plan written by Dr. Cordova. He will call tomorrow to reschedule and set up care. documented in this encounter Plan of Treatment Not on file documented as of this encounter Visit Diagnoses Not on filedocumented in this encounter Care Teams Metal Sorter Relationship Specialty Start Date End Date Helene Wilson MD [address] [place] [address] PCP - General 07/16/10 03/17/19 documented as of this encounter
--- OUTSIDE RECORDS SUMMARY | 2024-03-06 17:00 | XMS_ITS | Encounter Summary ---
Author Organization [facility] [place] [address] Care Team Providers Care Automobile Inspector Name Role Phone Helene Wilson MD Primary Care Provider [phone] Encounter Details Date Type Department Care Team (Late st Contact Info) Description 11/15/2015 2:00 PM EDT Office [place] [address] Sandra Borrego, OT [facility] PHYSICAL MEDICINE & [place] [address] TBI (traumatic brain injury), with loss of [...] Progress Notes * Sandra Borrego, OT - 11/15/2015 2:11 PM EDT OCCUPATIONAL THERAPY INITIAL EVALUATION REFERRAL SOURCE: Fredrick Arreguin DIAGNOSIS: 1. 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 Attention and concentration deficit NEXT MD FOLLOW UP: 01/11/16 TOTAL TREATMENT TIME: 55 minutes TIMED CODE TREATMENT TIME: Evaluation 55 minutes HISTORY: Vinay Dowell is a 30 [...] getting debri in eye while wood working OCCUPATIONAL PROFILE: LIVING SITUATION: Vinay Dowell lives in a multi level home with family Stairs: 2 stairs to enter Home Setup: Primary bedroom is located on the 2nd floor; primary bathroom is located on the 1st floor; Kitchen is located on the 1st floor, laundry is located on the 1st floor Current devices/equipment at home: none PRIOR FUNCTIONAL STATUS: LEVEL OF ASSIST ADL independent MOBILITY independent IADL independent COGNITIVE- COMMUNICATION SKILLS independent CURRENT ADL PERFORMANCE: (information gathered via patient/caregiver interview) ADL LEVEL OF ASSIST POSITION ADAPTIVE EQUIPMENT NOTES Bathing Independent unsupported stand Tub shower Tub/shower transfer Modified Independent One UE support via brace against wall Tub shower Grooming Independent standing UE dressing Independent Standing LE dressing Independent Standing Donning Coat Independent standing Donning shoes Independent standing Toilet transfer Independent LE clothing management Independent Perineal Hygiene Independent Eating finger foods Independent Eating solid foods Independent Eating liquid foods Independent Drinking Independent Bladder/Bowel Management continent CURRENT INSTRUMENTAL ADL PEFORMANCE: MEAL PREPARATION (X) NOTES/ ADAPTIVE EQUIPMENT multi-dish hot meal X Patient reports I can be forgetful sometimes when asked about following a recipe however denies any incidences of leaving appliances on Patient is unsure if current performance is different than premorbid functioning one dish hot meal hot beverage/re-heat prepared food cold meal self-serve Other GROCERY SHOPPIN. composing shopping list, 2. locating desired items, 3. selecting purchases, 4.transporting items (X) NOTES/ ADAPTIVE EQUIPMENT 4/4 without assistance 3/4 without assistance X Patient reports occasional difficulty visually locating items but is unsure if it is different than premorbid functioning 2/4 without assistance 1/4 without assistance Dependent on assistance for / Other CLOTHING CARE: 1. Collecting clothing and supplies, 2. Sorting clothing, 3. Operating washer/dryer,4. Folding, 5. Putting away clothing (X) NOTES/ ADAPTIVE EQUIPMENT 4/4 without assistance X 3/4 without assistance 2/4 without assistance 1/ without assistance Dependent on assistance for 11/25 Other LIGHT CLEANIN. making bed, 2. Straightening/dusting, 3. Vacuuming, 4. washing dishes (X) NOTES/ADAPTIVE EQUIPMENT /4 without assistance X 3/4 without assistance 2/4 without assistance 1/ without assistance other HEAVY CLEANING TASKS: 1. Mopping/scrubbing floor, 2. Taking out the garbage, 3. Changing bed linens, 4. Washing bathroom (X) NOTES/ ADAPTIVE EQUIPMENT / without assistance X 3/4 without assistance 2/ without assistance / without assistance Other MONEY MANAGEMENT (X) NOTES/ ADAPTIVE EQUIPMENT Complex Transactions X Denies any late payments; denies any errors Payout correct money/change Pay out money for simple transactions Identify julian/coin correctly Unable to complete transactions Other WRITTEN COMMUNICATION (X) NOTES/ ADAPTIVE EQUIPMENT 1 page with good legibility X Legibility declines after 1 page Legibility declines after 1/2 page Biographical information with fair/good legibility Biographical information with poor legibility Unable to perform writing Other PHONE USE (X) NOTES/ ADAPTIVE EQUIPMENT Independent in phone use including content X Patient reports that he occasionally forgets what he was going to say but is unsure if it is different from premorbid functioning Place informational call with verbal cues/dials phone Dials familiar numbers with strategies Answers phone but cannot place call Unable to use phone Other MEDICATION MANAGEMENT (X) NOTES/ ADAPTIVE EQUIPMENT Independent managing medication/medication information/refills X Independent with modificantions Takes medications with setup or verbal cues for refill Occasional assist with medication and dependent for refill Frequent verbal cues to take medication Assist to take all medication Other TRANSPORTATION (X) NOTES/ ADAPTIVE EQUIPMENT Independent with driving/public transit X independent with modifications independent with paratransit 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 homebound/unable to access transportation Other LEISURE SKILLS (X) NOTES/ ADAPTIVE EQUIPMENT Able to identify interests and reports regular participation 2-3x a week Able to identify interests however reports infrequent participation Able to identify interests but is not participating Unable to identify leisure activites Other Outdoor stuff, indoor stuff, relax, any sports Work Status: Patient is self employed and [...] completing IADLs 5 Total: Average Score 5 OBJECTIVE: Hand Dominance: Right UPPER EXTREMITY COORDINATION: Diadochokinesia RIGHT LEFT Test WFL WFL Finger to Nose RIGHT LEFT Test WFL WFL Finger Opposition RIGHT LEFT Test WFL WFL UPPER EXTREMITY ROM: ACTIVE RANGE OF MOTION: Measured in degrees of active motion with goniometer Right Left Shoulder Extension/Flexion WFL WFL Shoulder Abduction WFL WFL Shoulder Internal/External Rot. WFL WFL Elbow Extension/Flexion WFL WFL Wrist Extension/Flexion WFL WFL Ulnar/Radial Deviation WFL WFL Pronation/Supination WFL WFL UPPER EXTREMITY STRENGTH: Not formally assessed via MMT however patient denies and functional strength deficits limiting IADL performance SENSATION: Not formally assessed however patient denies any deficits FUNCTIONAL MOBILITY: Falling: patient denies any recent falls MENTAL FUNCTION: Global mental functions Consciousness/ state of awareness and alertness: person, place, time and situation Temperament and personality: Appropriate. Specific mental functions The Dalton Cognitive Assessment was desinged as a rapid [...] Recall Trial #1 11/02 7.17 Trial #2 03/04 9.17 Trial #3 05/05 9.88 Recognition --- Norms- Recognition True Positives 08/04 11.88 False Positives related 0/6 False Positives unrelated 0/6 TREATMENT TODAY: Evaluation Education provided on OT role and purpose ASSESSMENT: Vinay Dowell presents with reports of difficulty with emotional regulation and occasionally decreased recall of information. Patient reported minimal functional performance deficits dueto these issues during evaluation today. Upon completion of the MOCA, a brief screening of various cognitive domains, patient scored WFL. However, on the Hopkin's verbal learning test, this patient scored below the norms on 2/3 trials. On the first trial, patient reports that he just blanked out and couldn't focus on the list of words to be recalled. Patient may benefit from follow up appointment for further assessment of attention and memory. Additionally, patient may benefit from education on strategies for improved emotional regulation. Need for formal OT services to be determined based on further testing. Short Term Goals (to be met by next visit): Date Goal Met: Vinay Dowell will verbalize understanding of at least two strategies to improve attention and twostrategies to improve memory for improved ability to recall information from conversations Goal Status: In progress Vinay Dowell will be able to verbalize understanding of at least 2 emotional regulation strategies to improve patient's perceived control of changed in mood. Goal Status: In progress PLAN: Need for formal OT services to be determined based on further testing. Treatment to include use of: Patient/Caregiver education [...] deficit documented in this encounter Care Teams Automobile Inspector Relationship Specialty Start Date End Date Helene Wilson MD [address] [place] [address] PCP - General 07/16/10 03/17/19 documented as of this encounter
--- OUTSIDE RECORDS SUMMARY | 2024-03-06 17:00 | XMS_ITS | Encounter Summary ---
Author Organization [facility] [place] [address] Care Team Providers Care Driver Recruiter Name Role Phone Lizette Greco APRN Primary Care Provider [phone] Encounter Details Date Type Department Care Team (Late st Contact Info) Description 04/26/[address] [facility] [place] [address] Sara Nunez MD [facility] [place] [address] Social History Tobacco Use Types Packs/Day Years [...] Miscellaneous Notes * Telephone Encounter - Salima Moise - 04/26/2019 3:24 PM EDT L/M for H/A documented in this encounter Plan of Treatment Not on file documented as of this encounter Visit Diagnoses Not on filedocumented in this encounter Care Teams Driver Recruiter Relationship Specialty Start Date End Date Lizette Greco APRN [address] [place] [address] PCP - General Family Medicine 03/18/19 documented as of this encounter
--- OUTSIDE RECORDS SUMMARY | 2024-03-06 17:00 | XMS_ITS | Encounter Summary ---
Author Organization [facility] Address [facility] [address] Care Team Providers Care Vice President Of Consulting Services Name Role Phone Helene Wilson MD Primary Care Provider [phone] Reason for Visit * Reason Onset Date Comments Pre Procedure Call 09/19/2016 Encounter Details Date Type Department Care Team (Late st Contact Info) Description 09/19/2016 Telephone [place] [address] Moses Bernal MD [facility] [place] [address] Pre Procedure Call Social History Tobacco Use [...] * Telephone Encounter - Helene Real - 10/01/2016 11:04 AM EST I called and left a message for patient to call [phone] directly and schedule surgery with Dr. Bernal , another message was Left to call us when he is ready to proceed. * Telephone Encounter - Helene Real - 09/19/2016 9:52 AM EST I called and left a message for patient to call [phone] directly and schedule surgery with Dr. Bernal. documented in this encounter Plan of Treatment Not on file documented as of this encounter Visit Diagnoses Not on filedocumented in this encounter Care Teams Vice President Of Consulting Services Relationship Specialty Start Date End Date Helene Wilson MD [address] [place] [address] PCP - General 07/16/10 03/17/19 documented as of this encounter
--- OUTSIDE RECORDS SUMMARY | 2024-03-06 17:01 | XMS_ITS | Encounter Summary ---
Author Organization [facility] Address [address] [place] [address] Care Team Providers Care Food Expeditor Name Role Phone Unavailable Primary Care Provider Unavailabl e Encounter Details Date Type Department Care Team (Latest Contact Info) Description 04/22/2007 12:41 EDT Hospital Encounter [facility] [place] [address] [place] [address] Unknown, Provider, Discharge Disposition: Auto Discharge Social History Tobacco Use Types Packs/Day Years Used Date Smoking Tobacco: Never Assessed Sex and Gender Information Value Date Recorded Sex Assigned at Not on file Gender Identity Not on file Sexual Orientation Not on file documented as of this encounter Discharge Disposition Disposition Code Departure Means Destination Auto Discharge documented in this encounter Plan of Treatment Not on file documented as of this encounter Visit Diagnoses Not on filedocumented in this encounter
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
--- OUTSIDE RECORDS SUMMARY | 2024-03-06 17:01 | XMS_ITS | Encounter Summary ---
Author Organization [facility] Address [address] [place] [address] Care Team Providers Care Patients Transporter Name Role Phone Helene Wilson MD Primary Care Provider [phone] Encounter Details Date Type Department Care Team (Late st Contact Info) Description 03/19/2007 Before PRISM Converted Visit (Maple) [facility] - Maple conversion [address] [place] [address] Floyd Espinal MD [address] [place] [address] Social History Tobacco Use Types Packs/Day Years Used Date Smoking Tobacco: Never Assessed Sex and Gender Information Value Date Recorded Sex Assigned at Not on file Gender Identity Not on file Sexual Orientation Not on file documented as of this encounter Plan of Treatment Not on file documented as of this encounter Visit Diagnoses Not on filedocumented in this encounter Care Teams Patients Transporter Relationship Specialty Start Date End Date Helene Wilson MD [address] [place] [address] PCP - General 07/04/15 documented as of this encounter
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
--- OUTSIDE RECORDS SUMMARY | 2024-03-06 17:01 | XMS_ITS | Encounter Summary ---
Author Organization [facility] Address [address] [place] [address] Care Team Providers Care Special Librarian Name Role Phone Unavailable Primary Care Provider Unavailabl e Encounter Details Date Type Department Care Team (Latest Contact Info) Description 04/01/2007 11:52 EDT - 04/01/2007 11:59 EDT Hospital Encounter [facility] [address] [place] [address] Unknown, Provider, Discharge Disposition: Auto Discharge Social [...]
--- OUTSIDE RECORDS SUMMARY | 2024-03-06 17:01 | XMS_ITS | Encounter Summary ---
Author Organization [facility] Address [address] [place] [address] Care Team Providers Care Specification Writer Name Role Phone Unavailable Primary Care Provider Unavailabl e Encounter Details Date Type Department Care Team (Late st Contact Info) Description 03/24/2007 Before PRISM Converted Visit (Maple) [facility] - Maple conversion [address] [place] [address] Jose Juan Ya PA Social History Tobacco Use Types Packs/Day Years Used Date Smoking Tobacco: Never Assessed Sex and Gender Information Value Date Recorded Sex Assigned at Not on file Gender Identity Not on file Sexual Orientation Not on file documented as of this encounter Progress Notes * Jose Juan Ya PA - 07/01/20092128 EST INPATIENT PROGRESS NOTE Service Date: 03/24/2007 PT LOC: B006 SUBJECTIVE Now five days post graft, ready to for takedown, doing well, pain is well controlled. OBJECTIVE Awake, alert, in no acute distresssitting comfortably in bed. Vital signs are stable, see resident note. Dressing is removed at bed side showing the anterior graft has near complete take. Bandar areremoved. There is some minor bleeding. The posterior smaller graft near the heel has some hematomasunder the graft, which when bandar are removed ooze out. The graft there is slightly loose. Ankle has good range of motion for being immobile for the past few days. ASSESSMENT Burn healing appropriately status post grafting. PLAN Discharge today. Nonweightbearing until seen in clinic on March 30, 2007. He knows how to use crutches and has those in place. Pain control is good with orals, but he should wean from the higher doses that he has been on until he comes back. Instructions given by nursing on Xeroform dressing, Bacitracin, bleeding areas wrap with Kerlix and Nabeel. Call before then if necessary, but I suspect he willdo well. Signed by PAULETTE Badillo 03/31/2007 08:41 APeter PAULETTE [phone] PAULETTE Ya PAULETTE Badillo [phone] - PAULETTE Ya A [facility] Job ID: [id number] Document ID: [id number] cc: Helene Wilson MD 03/24/2007 - PAULETTE Badillo A [facility] Job ID: [id number] Document ID: [id number] cc: Helene Wilson MD documented in this encounter Plan of Treatment Not on file documented as of this encounter Visit Diagnoses Not on filedocumented in this encounter
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
--- OUTSIDE RECORDS SUMMARY | 2024-03-06 17:01 | XMS_ITS | Encounter Summary ---
Author Organization [facility] Address [address] [place] [address] Care Team Providers Care Best Second Jobs Name Role Phone Unavailable Primary Care Provider Unavailabl e Encounter Details Date Type Department Care Team (Latest Contact Info) Description 03/05/2007 13:10 EDT Hospital Encounter [facility] [address] [place] [address] Jose Juan Ya PA Discharge Disposition: Auto Discharge Social History Tobacco [...]
--- OUTSIDE RECORDS SUMMARY | 2024-03-06 17:01 | XMS_ITS | Encounter Summary ---
Author Organization [facility] Address [address] [place] [address] Care Team Providers Care Commercial Loan Closer Name Role Phone Unavailable Primary Care Provider Unavailabl e Encounter Details Date Type Department Care Team (Latest Contact Info) Description 05/13/2007 11:31 EDT - 05/13/2007 11:59 EDT Hospital [facility] [address] [place] [address] Unknown, Provider, Discharge Disposition: Auto Discharge Social [...]
--- OUTSIDE RECORDS SUMMARY | 2024-03-06 17:01 | XMS_ITS | Encounter Summary ---
Author Organization [facility] Address [address] [place] [address] Care Team Providers Care Care Program Resident Name Role Phone Helene Wilson MD Primary Care Provider [phone] Encounter Details Date Type Department Care Team (Late st Contact Info) Description 03/19/2007 Before PRISM Converted Visit (Maple) [facility] - Maple conversion [address] [place] [address] Floyd Espinal MD [address] [place] [address] Social History Tobacco Use Types Packs/Day Years Used Date Smoking Tobacco: Never Assessed Sex and Gender Information Value Date Recorded Sex Assigned at Not on file Gender Identity Not on file Sexual Orientation Not on file documented as of this encounter Plan of Treatment Not on file documented as of this encounter Visit Diagnoses Not on filedocumented in this encounter Care Teams Care Program Resident Relationship Specialty Start Date End Date Helene Wilson MD [address] [place] [address] PCP - General 07/04/15 documented as of this encounter
--- OUTSIDE RECORDS SUMMARY | 2024-03-06 17:01 | XMS_ITS | Encounter Summary ---
Author Organization [facility] Address [address] [place] [address] Care Team Providers Care Billet Cutter Name Role Phone Helene Wilson MD Primary Care Provider [phone] Encounter Details Date Type Department Care Team (Late st Contact Info) Description 10/05/2020 Lab Requisition [facility] Pathology & Laboratory Medicine - [address] [address] Outr Resulting Lab, Provider Social History Tobacco Use Types Packs/Day Years [...] Procedure Name Priority Date/Time Associated Diagnosis Comments HERPES SIMPLEX VIRUS (HSV) TYPE 1 & 2 AB, IGG Routine 10/04/2020 12:19 EST documented in this encounter Results * (ABNORMAL) HERPES SIMPLEX VIRUS (HSV) TYPE 1 & 2 AB, IGG (10/04/2020 12:19 EST) HSV Type 1 Ab, IgG Positive(A) Negative 10/08/2020 11:47 EST [facility] Comment:Indicates the presen ce of detectable IGG Antibody to HSV1 HSV Type 2 Ab, IgG Negative Negative 10/08/2020 11:47 EST [facility] Comment: No detectable antibodies to HSV 2 were found. A negative result generally indicates that the patient has not been infected, but does not always rule out acute HSV infection. If clinical exposure to HSV is suspected despite a negative finding a second sample should be collected and tested no less than 4-6 weeks later. Blood VENOUS BLOOD / Unknown 10/04/2020 12:19 EST 10/05/2020 16:34 EST Provider Outr Resulting Lab IMMUNOLOGY A ND SEROLOGY ORDERABLES [facility] [address] [place] [address] documented in this encounter Visit Diagnoses Not on filedocumented in this encounter Care Teams Billet Cutter Relationship Specialty Start Date End Date Helene Wilson MD [address] [place] [address] PCP - General 07/04/15 documented as of this encounter
--- OUTSIDE RECORDS SUMMARY | 2024-03-06 17:01 | XMS_ITS | Encounter Summary ---
Author Organization [facility] Address [address] [place] [address] Care Team Providers Care Manager Technical Support Name Role Phone Unavailable Primary Care Provider Unavailabl e Encounter Details Date Type Department Care Team (Late st Contact Info) Description 03/19/2007 Before PRISM Converted Visit (Maple) [facility] - Maple conversion [address] [place] [address] Floyd Espinal MD [address] [place] [address] Social History Tobacco Use Types Packs/Day Years [...]
--- OUTSIDE RECORDS SUMMARY | 2024-03-06 17:01 | XMS_ITS | Encounter Summary ---
Author Organization [facility] Address [address] [place] [address] Care Team Providers Care Computer Salesperson Retail Name Role Phone Unavailable Primary Care Provider Unavailabl e Encounter Details Date Type Department Care Team (Latest Contact Info) Description 03/11/2007 11:23 EDT - 03/11/2007 11:59 EDT Hospital Encounter [facility] [address] [place] [address] Unknown, Provider, Discharge Disposition: Auto Discharge Social [...]
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
--- OUTSIDE RECORDS SUMMARY | 2024-03-06 17:01 | XMS_ITS | Encounter Summary ---
Author Organization [facility] Address [address] [place] [address] Care Team Providers Care Laboratory Manager Name Role Phone Helene Wilson MD Primary Care Provider [phone] Encounter Details Date Type Department Care Team (Late st Contact Info) Description 03/19/2007 Before PRISM Converted Visit (Maple) [facility] - Maple conversion [address] [place] [address] Floyd Espinal MD [address] [place] [address] Social History Tobacco Use Types Packs/Day Years Used Date Smoking Tobacco: Never Assessed Sex and Gender Information Value Date Recorded Sex Assigned at Not on file Gender Identity Not on file Sexual Orientation Not on file documented as of this encounter Plan of Treatment Not on file documented as of this encounter Visit Diagnoses Not on filedocumented in this encounter Care Teams Laboratory Manager Relationship Specialty Start Date End Date Helene Wilson MD [address] [place] [address] PCP - General 07/04/15 documented as of this encounter
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
--- OUTSIDE RECORDS SUMMARY | 2024-03-06 17:01 | XMS_ITS | Encounter Summary ---
Author Organization [facility] Address [address] [place] [address] Care Team Providers Care Product Development Chemist Name Role Phone Helene Wilson MD Primary Care Provider [phone] Encounter Details Date Type Department Care Team (Late st Contact Info) Description 03/19/2007 Before PRISM Converted Visit (Maple) [facility] - Maple conversion [address] [place] [address] Floyd Espinal MD [address] [place] [address] Social History Tobacco Use Types Packs/Day Years Used Date Smoking Tobacco: Never Assessed Sex and Gender Information Value Date Recorded Sex Assigned at Not on file Gender Identity Not on file Sexual Orientation Not on file documented as of this encounter Plan of Treatment Not on file documented as of this encounter Visit Diagnoses Not on filedocumented in this encounter Care Teams Product Development Chemist Relationship Specialty Start Date End Date Helene Wilson MD [address] [place] [address] PCP - General 07/04/15 documented as of this encounter
--- OUTSIDE RECORDS SUMMARY | 2024-03-06 17:01 | XMS_ITS | Encounter Summary ---
Author Organization [facility] Address [address] [place] [address] Care Team Providers Care Learning Services Coordinator Name Role Phone Helene Wilson MD Primary Care Provider [phone] Encounter Details Date Type Department Care Team (Late st Contact Info) Description 03/19/2007 Before PRISM Converted Visit (Maple) [facility] - Maple conversion [address] [place] [address] Floyd Espinal MD [address] [place] [address] Social History Tobacco Use Types Packs/Day Years Used Date Smoking Tobacco: Never Assessed Sex and Gender Information Value Date Recorded Sex Assigned at Not on file Gender Identity Not on file Sexual Orientation Not on file documented as of this encounter Plan of Treatment Not on file documented as of this encounter Visit Diagnoses Not on filedocumented in this encounter Care Teams Learning Services Coordinator Relationship Specialty Start Date End Date Helene Wilson MD [address] [place] [address] PCP - General 07/04/15 documented as of this encounter
--- OUTSIDE RECORDS SUMMARY | 2024-03-06 17:01 | XMS_ITS | Encounter Summary ---
Author Organization [facility] Address [address] [place] [address] Care Team Providers Care Credit Representative Name Role Phone Unavailable Primary Care Provider Unavailabl e Encounter Details Date Type Department Care Team (Latest Contact Info) Description 04/08/2007 11:13 EDT - 04/08/2007 11:59 EDT Hospital Encounter [facility] [address] [place] [address] Unknown, Provider, Discharge Disposition: Auto Discharge Social [...]
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
--- OUTSIDE RECORDS SUMMARY | 2024-03-06 17:01 | XMS_ITS | Encounter Summary ---
Author Organization [facility] Address [address] [place] [address] Care Team Providers Care Health Information Tech Name Role Phone Unavailable Primary Care Provider Unavailabl e Encounter Details Date Type Department Care Team (Latest Contact Info) Description 04/29/2007 11:22 EDT - 04/29/2007 11:59 EDT Hospital Encounter [facility] [address] [place] [address] Unknown, Provider, Discharge Disposition: Auto Discharge Social [...]
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
== END 2024-03-06 17:06 | disposition home or self-care (01) ==
LOC: ER 16:56
PROVIDERS: Emergency Provider Nurse Practitioner Family; PCP Nurse Practitioner Family
DX: S41.111A Laceration without foreign body of right upper arm, initial encounter (principal); F17.210 Nicotine dependence, cigarettes, uncomplicated; W26.0XXA Contact with knife, initial encounter; Y93.89 Activity, other specified; Y92.010 Kitchen of single-family (private) house as the place of occurrence of the external cause
CPT/HCPCS: 12001; 99283

== ENCOUNTER 2024-09-14 14:40 | Emergency (ER) | payer MEDICAID, SELFPAY ==
[2024-09-14] VITALS (23 sets, daily range): BP systolic 106–152; BP diastolic 86–104; PULSE 96–114; RESP 13–21; TEMP 36.9; O2SAT 96–100
--- NOTE | 2024-09-14 14:30 | RT.EKG_ITS ---
APPROVED REPORT Exam: Resting ECG Reason for Exam: Chest Pain Patient Location: E HR:115 bpm ECG Measurements Heart Rate 115 AXIS NJ 146 P 64 QRSd 94 QRS 19 QT 327 T 61 QTc 453 Conclusion Sinus tachycardia...rate> 99 Probable left atrial enlargement...P >50mS, <-0.10mV V1 ST elevation, consider inferior injury...ST >0.08mV, II III aVF
--- NOTE | 2024-09-14 15:00 | DI.CT_ITS ---
Exam(s) CT CHEST PE ABD PELVIS W EXAM: CT CHEST PE ABD PELVIS W CLINICAL HISTORY: right sided pleuritic chest pain, right upper abd. TECHNIQUE: Imaging Protocol: Axial computed tomography images with coronal and sagittal reformatted images were created and reviewed. Computer aided detection (CAD) was utilized. CONTRAST MATERIAL: Intravenous: Omnipaque 350 Contrast volume:100 ml Oral: no COMPARISON: No exams were available for comparison FINDINGS: CHEST: Tracheobronchial tree: Patent. Pulmonary parenchyma: No consolidation or dominant measurable mass. Expiratory changes. Pleura: No effusion or pneumothorax. Mediastinum: Within normal limits. Aorta: Thoracic portion non-dilated. Pulmonary arteries: No visible emboli. Heart: No pericardial effusion. Bones: Unremarkable for age. No lytic or blastic lesions.No compression fractures. Soft tissues: Unremarkable. ABDOMEN and PELVIS: Liver: Normal density. No measurable mass. Gallbladder and biliary tract: No evidence of stones or wall thickening. No biliary dilatation. Pancreas: Normal density, no abnormal calcifications or inflammatory process. Spleen: Normal. Kidneys: Normal size, contour and axis. No radiodense stones. No obstructive uropathy. No suspicious masses seen. Adrenal glands: No masses seen. Aorta: Abdominal portion non-dilated. Lymph nodes: Within normal limits. Soft tissues: Unremarkable. Bladder: Unremarkable. Bowel: No obstruction or bowel wall thickening. Large quantity of stool seen in the rectum which is significantly distended. No wall thickening. No adjacent perirectal abscess. Appendix normal. Peritoneal cavity: No ascites. No focal collection. No mesenteric inflammatory response. No free ai r. Bones: Unremarkable for age. Reproductive organs: Within normal limits. IMPRESSION: No acute abnormality in the chest. No evidence of pulmonary emboli. Large quantity of stool distending the rectum. No evidence of wall thickening or adjacent abscess. RADIATION DOSE DELIVERED: Total DLP DATA REPOSITORY: All CT scans at this facility are submitted to the National Radiology Data Registry (NRDR) Dose Index Registry (DIR) with the [employer] (ACR). RADIATION OPTIMIZATION: All CT scans at this facility use at least one of these dose optimization te chniques: automated exposure control; mA and/or kV adjustment per patient size (includes targeted exa ms where dose is matched to clinical indication); or iterative reconstruction.
[2024-09-14 15:09] LABS: Abs Immature Grans 0.02 10^3/uL (0.0-0.06); Absolute Basophil Count 0.06 10^3/uL (0.0-0.2); Absolute Eosinophil Count 0.19 10^3/uL (0.0-0.7); Absolute Lymphocyte Count 2.27 10^3/uL (1.2-3.4); Absolute Monocyte Count 1.07 10^3/uL (0.1-0.8); Absolute Neutrophil Count 7.19 10^3/uL (1.2-6.7); Basophils % 0.6 %; Eosinophils % 1.8 %; HCT 46.2 % (40.0-50.0); HGB 15.4 g/dL (13.5-17.5); Immature Grans % 0.2 %; MCH 32.1 pg (27.0-33.0); MCHC 33.3 % (32.0-36.0); MCV 96 fL (80-95); MPV 9.4 fL (8.0-11.0); Monocytes % 9.9 %; Neutrophils % 66.5 %; Platelet Count 376 10^3/uL (130-400); RDW 13.2 % (11.8-14.1); RDW-SD 47.2 fL
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
[2024-09-14 15:25] LABS: PTT Activated 26.7 sec (20.6-30.2); Prothrombin Time 10.4 sec (9.1-11.1)
[2024-09-14] MEDS: Ketorolac 15 MG/ML VIAL IVP (15:27)
[2024-09-14 15:30] LABS: ALT 27 U/L (16-63); AST 15 U/L (15-37); Albumin 3.8 g/dL (3.4-5.0); Alkaline Phosphatase 91 U/L (46-116); Anion Gap 5.5 mmol/L (3-11); BUN 14 mg/dL (7-18); Bilirubin, Total 1.01 mg/dL (0.2-1.0); CO2 35.5 mmol/L (21.0-32.0); CREATININE 0.9 mg/dL (0.70-1.30); Calcium 9.2 mg/dL (8.5-10.1); Chloride 104 mmol/L (98-107); Estimated GFR 110.73 (mL/min/1.73m2); Glucose 127 mg/dL (74-106); Lipase 26 U/L (<78); Potassium 3.9 mmol/L (3.5-5.1); Sodium 145 mmol/L (136-145); Troponin I < 4 ng/L (<or=76)
[2024-09-14] MEDS: Omnipaque 350 MG/ML 100 ML BTL IJ (15:43)
[2024-09-14] MEDS: Normal Saline - Diluent 50 ML VIAL IJ (15:44)
[2024-09-14 16:28] LABS: Troponin I < 4 ng/L (<or=76)
== END 2024-09-14 17:15 | disposition home or self-care (01) ==
PROVIDERS: Emergency Provider Emergency Medicine; PCP Nurse Practitioner Family
DX: R07.9 Chest pain, unspecified (principal); R10.11 Right upper quadrant pain; F17.200 Nicotine dependence, unspecified, uncomplicated
CPT/HCPCS: 36415; 71275; 74177; 80053; 83690; 93005; 99285; 83735; 84484; 85025; 85610; 85730; 93010; 99284; J1885; J3490

== ENCOUNTER 2025-06-06 20:20 | Emergency (ER) | payer MEDICAID, SELFPAY ==
[2025-06-06 20:34] VITALS: BP 116/74; PULSE 65; RESP 18; TEMP 36.9; O2SAT 94
[2025-06-06 20:39] VITALS: BP 116/74; PULSE 65; RESP 18; TEMP 36.9; O2SAT 94
== END 2025-06-06 21:08 | disposition left against medical advice (07) ==
PROVIDERS: PCP Nurse Practitioner Family
DX: Z53.21 Procedure and treatment not carried out due to patient leaving prior to being seen by health care provider (principal)

== ENCOUNTER 2025-06-07 18:28 | Outpatient (REF) | payer MEDICAID, SELFPAY | END 2025-06-07 18:29 | disposition home or self-care (01) | LOC: LBN 18:28 | PROVIDERS: PCP Nurse Practitioner Family; Visit Provider Nurse Practitioner Family | DX: L98.9 Disorder of the skin and subcutaneous tissue, unspecified (principal) | CPT/HCPCS: 87077; 87070; 87186; 87205 ==